=== PATIENT | female | born 1940 | race Caucasian/White ===

== ENCOUNTER 2016-12-07 14:10 | Outpatient (CLI) | payer MEDICARE, OTHER | END 2016-12-07 14:11 | disposition home or self-care (01) | DX: G47.33 Obstructive sleep apnea (adult) (pediatric) (principal) | CPT/HCPCS: 99214; G0463 ==

== ENCOUNTER 2016-12-09 11:12 | Outpatient (CLI) | payer MEDICARE, OTHER | END 2016-12-09 11:13 | disposition home or self-care (01) | DX: M16.12 Unilateral primary osteoarthritis, left hip (principal) ==

== ENCOUNTER 2016-12-30 15:35 | Outpatient (CLI) | payer MEDICARE, OTHER | END 2016-12-30 15:36 | disposition home or self-care (01) | DX: N05.9 Unspecified nephritic syndrome with unspecified morphologic changes (principal); D70.9 Neutropenia, unspecified; E83.30 Disorder of phosphorus metabolism, unspecified; N25.81 Secondary hyperparathyroidism of renal origin; D63.1 Anemia in chronic kidney disease; R80.9 Proteinuria, unspecified ==

== ENCOUNTER 2017-03-23 09:09 | Outpatient (CLI) | payer MEDICARE, OTHER ==
[2017-03-23 13:30] LABS: BASOPHILS # (AUTO) 0.1 10^3/uL (0.0-0.1); BASOPHILS % (AUTO) 1.7 %; EOSINOPHILS # (AUTO) 0.2 10^3/uL (0.0-0.7); EOSINOPHILS % (AUTO) 4.7 %; HCT - HEMATOCRIT 30.3 % (37.0-47.0); HGB - HEMOGLOBIN 10.4 g/dL (12.0-16.0); LYMPHOCYTES # (AUTO) 0.9 10^3/uL (1.5-3.5); LYMPHOCYTES % (AUTO) 21.6 %; MEAN CORPUSCULAR HEMOGLOBIN 30.4 pg (27.0-31.0); MEAN CORPUSCULAR HGB CONC 34.2 g/dL (32.0-36.0); MEAN CORPUSCULAR VOLUME 88.9 fL (81.0-99.0); MEAN PLATELET VOLUME 10.5 fL (7.9-10.8); MONOCYTES # (AUTO) 0.4 10^3/uL (0.0-1.0); MONOCYTES % (AUTO) 8.6 %; NEUTROPHILS # (AUTO) 2.8 10^3/uL (1.5-6.6); NEUTROPHILS % (AUTO) 63.4 %; NUCLEATED RED BLOOD CELLS AUTO 0.1 /100WBC; RED BLOOD COUNT 3.41 10^6/uL (4.20-5.40); RED CELL DISTRIBUTION WIDTH 13.1 % (12.0-15.0); UNCORRECTED WHITE BLOOD COUNT 4.4 x10^3/uL; WHITE BLOOD COUNT 4.4 x10^3/uL (4.8-10.8)
[2017-03-23 13:57] LABS: CALCIUM 9.3 mg/dL (8.5-10.3); CREATININE 2.9 mg/dL (0.4-1.0)
== END 2017-03-23 09:10 | disposition home or self-care (01) ==
LOC: LAB.WCP 09:09
PROVIDERS: ATTEND Family Medicine
DX: R06.09 Other forms of dyspnea (principal); D63.1 Anemia in chronic kidney disease
CPT/HCPCS: 36415; 80048; 82728; 83540; 83880; 84466; 85025

== ENCOUNTER 2017-04-20 14:31 | Outpatient (CLI) | payer MEDICARE, OTHER ==
[2017-04-20 19:01] LABS: HCT - HEMATOCRIT 32.6 % (37.0-47.0); HGB - HEMOGLOBIN 10.9 g/dL (12.0-16.0); MEAN CORPUSCULAR HEMOGLOBIN 29.7 pg (27.0-31.0); MEAN CORPUSCULAR HGB CONC 33.6 g/dL (32.0-36.0); MEAN CORPUSCULAR VOLUME 88.3 fL (81.0-99.0); MEAN PLATELET VOLUME 9.7 fL (7.9-10.8); RED BLOOD COUNT 3.69 10^6/uL (4.20-5.40); RED CELL DISTRIBUTION WIDTH 13.3 % (12.0-15.0); WHITE BLOOD COUNT 5.1 x10^3/uL (4.8-10.8)
[2017-04-20 20:10] LABS: CALCIUM 9.4 mg/dL (8.5-10.3); CREATININE 2.9 mg/dL (0.4-1.0); POTASSIUM 4.4 mmol/L (3.5-5.0)
== END 2017-04-20 14:32 ==
LOC: LAB.WCP 14:31
PROVIDERS: ATTEND Internal Medicine Nephrology
DX: N05.9 Unspecified nephritic syndrome with unspecified morphologic changes (principal); D50.0 Iron deficiency anemia secondary to blood loss (chronic)
CPT/HCPCS: 36415; 80048; 82728; 83540; 84466

== ENCOUNTER 2017-04-21 14:28 | Outpatient (CLI) | payer MEDICARE, OTHER | END 2017-04-21 14:29 | disposition home or self-care (01) | LOC: LAB.WCP 14:28 | PROVIDERS: ATTEND Family Medicine | DX: I25.10 Atherosclerotic heart disease of native coronary artery without angina pectoris (principal) | CPT/HCPCS: 36415; 84484 ==

== ENCOUNTER 2017-05-19 09:52 | Outpatient (CLI) | payer MEDICARE, OTHER | END 2017-05-19 09:53 | disposition short-term general hospital (02) | LOC: EMS 09:52 | PROVIDERS: ATTEND Surgery | DX: R55 Syncope and collapse (principal); R42 Dizziness and giddiness; R53.1 Weakness | CPT/HCPCS: A0425; A0427 ==

== ENCOUNTER 2017-06-10 15:46 | Outpatient (CLI) | payer MEDICARE, OTHER ==
[2017-06-10 16:07] LABS: BASOPHILS # (AUTO) 0.1 10^3/uL (0.0-0.1); EOSINOPHILS # (AUTO) 0.5 10^3/uL (0.0-0.7); EOSINOPHILS % (AUTO) 7.4 %; HCT - HEMATOCRIT 33.4 % (37.0-47.0); HGB - HEMOGLOBIN 11.2 g/dL (12.0-16.0); LYMPHOCYTES # (AUTO) 1.3 10^3/uL (1.5-3.5); LYMPHOCYTES % (AUTO) 19.4 %; MEAN CORPUSCULAR HEMOGLOBIN 29.4 pg (27.0-31.0); MEAN CORPUSCULAR HGB CONC 33.5 g/dL (32.0-36.0); MEAN CORPUSCULAR VOLUME 87.8 fL (81.0-99.0); MEAN PLATELET VOLUME 8.3 fL (7.9-10.8); MONOCYTES # (AUTO) 0.6 10^3/uL (0.0-1.0); MONOCYTES % (AUTO) 8.6 %; NEUTROPHILS # (AUTO) 4.1 10^3/uL (1.5-6.6); NEUTROPHILS % (AUTO) 62.6 %; RED BLOOD COUNT 3.81 10^6/uL (4.20-5.40); RED CELL DISTRIBUTION WIDTH 13.7 % (12.0-15.0); UNCORRECTED WHITE BLOOD COUNT 6.5 x10^3/uL; WHITE BLOOD COUNT 6.5 x10^3/uL (4.8-10.8)
[2017-06-10 16:19] LABS: CALCIUM 9.3 mg/dL (8.5-10.3); CREATININE 3.2 mg/dL (0.4-1.0); POTASSIUM 4.7 mmol/L (3.5-5.0)
== END 2017-06-10 15:47 | disposition home or self-care (01) ==
LOC: LAB 15:46
PROVIDERS: ATTEND Internal Medicine Nephrology
DX: N05.9 Unspecified nephritic syndrome with unspecified morphologic changes (principal); D70.9 Neutropenia, unspecified; E03.9 Hypothyroidism, unspecified; D63.1 Anemia in chronic kidney disease
CPT/HCPCS: 36415; 80048; 84443; 85025

== ENCOUNTER 2017-08-08 08:00 | Outpatient (CLI) | payer MEDICARE, OTHER ==
[2017-08-08 13:46] LABS: HCT - HEMATOCRIT 34.6 % (37.0-47.0); HGB - HEMOGLOBIN 11.8 g/dL (12.0-16.0); MEAN CORPUSCULAR HEMOGLOBIN 30.1 pg (27.0-31.0); MEAN CORPUSCULAR VOLUME 88.6 fL (81.0-99.0); MEAN PLATELET VOLUME 9.2 fL (7.9-10.8); RED BLOOD COUNT 3.91 10^6/uL (4.20-5.40); RED CELL DISTRIBUTION WIDTH 14.4 % (12.0-15.0)
[2017-08-08 14:00] LABS: CALCIUM 9.3 mg/dL (8.5-10.3); CREATININE 2.6 mg/dL (0.4-1.0); POTASSIUM 4.4 mmol/L (3.5-5.0); URIC ACID 6.9 mg/dL (2.6-7.2)
== END 2017-08-08 08:01 | disposition home or self-care (01) ==
LOC: LAB.WCP 08:00
PROVIDERS: ATTEND Family Medicine
DX: N05.9 Unspecified nephritic syndrome with unspecified morphologic changes (principal); M10.00 Idiopathic gout, unspecified site; D70.9 Neutropenia, unspecified; D63.1 Anemia in chronic kidney disease
CPT/HCPCS: 36415; 80048; 84550

== ENCOUNTER 2017-12-09 23:06 | Emergency (ER) | payer MEDICARE, OTHER ==
[2017-12-09 23:24] VITALS: BP 155/75
[2017-12-09] MEDS ORDERED: HYDROcod/ACETAM 5/325 MG TABLET PO STA (23:50)
--- NOTE | 2017-12-09 23:54 | ED Physician Documentation ---
PD HPI LOWER EXT INJURY - Stated complaint Stated Complaint: GLF/RT FOOT PX - Chief complaint Chief Complaint: Ext Problem - History obtained from History obtained from: Patient - History of Present Illness PD HPI LOW EXT INJURY LOCATION: Other (Slip and fall in the kitchen, she hit her foot on the door frame and this was about 3:00 PM today. She has moderate to severe right foot pain but no other injuries.) Review of Systems Constitutional: reports: Reviewed and negative Cardiac: reports: Reviewed and negative Respiratory: reports: Reviewed and negative PD PAST MEDICAL HISTORY - Past Medical History Cardiovascular: Hypertension, High cholesterol, Atrial fibrillation, Other Respiratory: Sleep apnea Neuro: Headache/migraine Endocrine/Autoimmune: None GI: GI bleed : Renal insuffiency, Other HEENT: None Psych: None Musculoskeletal: None Derm: None - Past Surgical History Past Surgical History: Yes General: Colonoscopy Ortho: Rotator cuff repair Cardiovascular: Coronary stent HEENT: Cataracts - Present Medications Home Medications: Ambulatory Orders Medication Instructions Recorded Confirmed Fluticasone Propionate [Flonase 1 spray NS BID PRN 06/04/15 09/16/16 Allergy Relief] Nitroglycerin [Nitrostat] 0.4 mg SL Q5MIN PRN 06/04/15 09/16/16 Cholecalciferol (Vitamin D3) 1,000 unit PO DAILY 04/06/16 09/16/16 [Vitamin D3] Aspirin [Aspirin EC] 81 mg PO QPM 08/06/16 09/16/16 Acetaminophen [Tylenol] 650 mg PO Q4HR PRN #0 tablet 08/07/16 09/16/16 Carvedilol [Coreg] 12.5 mg PO BID #60 tablet 08/07/16 09/16/16 Pantoprazole [Protonix] 40 mg PO QDAC #30 tablet 08/07/16 09/16/16 cloNIDine [Catapres] 0.1 mg PO QPM tablet 08/07/16 09/16/16 Atorvastatin [Lipitor] 10 mg PO TIDWM 09/16/16 09/16/16 HYDROcod/ACETAM 5/325 [Mingo 5/325] 1 - 2 ea PO Q6H PRN #15 tablet 12/09/17 Knee Scooter 1 unit TD ONCE #1 12/09/17 - Allergies Allergies/Adverse Reactions: Allergies Allergy/AdvReac Type Severity Reaction Status Date / Time amlodipine AdvReac Edema Verified 12/09/17 23:24 losartan AdvReac Dizziness Verified 12/09/17 23:24 oxycodone AdvReac Nausea Verified 12/09/17 23:24 - Social History Does the pt smoke?: No Smoking Status: Never smoker Does the pt drink ETOH?: No Does the pt have substance abuse?: No - Immunizations Immunizations are current?: Yes - POLST Patient has POLST: No PD ED PE NORMAL - Vitals Vital signs reviewed: Yes - General General: Alert and oriented X 3, No acute distress - Neck Neck: No bony TTP - Extremities Extremities: Other (There is bruising and swelling over the lateral distal right foot but with good range of motion and normal pedal pulses and sensation.) - Neuro Neuro: Alert and oriented X 3, Normal speech - Psych Psych: Normal mood, Normal affect Results - Vitals Vitals: Vital Signs - 24 hr 12/09/17 23:18 Temperature 36.8 C Heart Rate 66 Respiratory 16 Rate Blood Pressure 155/75 H O2 Saturation 99 Oxygen O2 Source Room air - Rads (name of study) 3 views of the right foot Radiology: EMP read contemporaneously (Oblique fractures of the fourth and fifth mid metatarsals.) Procedures - Splint (location) RLE Splint applied by: Tech Type of splint: Fiberglass, Short leg, Posterior Other: Patient tolerated well, No complications, Neurovascular intact, Crutches provided Departure - Departure Disposition: 01 Home, Self Care Clinical Impression: Fracture of fourth metatarsal bone of right foot Qualifiers: Encounter type: initial encounter Fracture type: closed Fracture alignment: nondisplaced Qualified Code(s): S92.344A - Nondisplaced fracture of fourth metatarsal bone, right foot, initial encounter for closed fracture Fracture of fifth metatarsal bone of right foot Qualifiers: Encounter type: initial encounter Fracture type: closed Fracture alignment: nondisplaced Qualified Code(s): S92.354A - Nondisplaced fracture of fifth metatarsal bone, right foot, initial encounter for closed fracture Condition: Good Record reviewed to determine appropriate education?: Yes Instructions: ED Crutch Walking, ED Fx Foot Follow-Up: [facility] [Provider Group] - Within 1 week Prescriptions: HYDROcod/ACETAM 5/325 [Mingo 5/325] 1 - 2 ea PO Q6H PRN #15 tablet PRN Reason: Pain Knee Scooter 1 unit TD ONCE #1 Comments: Do not drink or drive while taking narcotic pain medication. Note that many narcotic pain relievers also contain Tylenol/acetaminophen. Please ensure that your total dose of acetaminophen from all sources does not exceed 3 g (3000 mg) per day. You may get constipated while on this medication. Take a stool softener such as Colace twice a day while you are on it. Also add an [id number] laxative such as senna or MiraLAX on any day that you do not have a bowel movement. If you received a narcotic pain medication or sedative while in the emergency department, do not drive for the next 24 hours. Your blood pressure was elevated today on check into the emergency department. This does not mean that you have hypertension, it is a common phenomenon to come to the emergency department and have elevated blood pressure. I recommend that you see your primary care physician within the week to have it rechecked when you are feeling better.
--- NOTE | 2017-12-10 00:01 | XRAY Report ---
EXAM: RIGHT FOOT RADIOGRAPHY EXAM DATE: 12/09/2017 11:45 PM. CLINICAL HISTORY: Fall. Injury. Pain laterally. COMPARISON: None. TECHNIQUE: 3 views. FINDINGS: Bones: Mildly displaced oblique distal shaft fractures of fourth and fifth metatarsals. No other trau matic or destructive bone abnormalities. Joints: Normal. No subluxations. Soft Tissues: Associated soft tissue swelling. Dystrophic calcification anterior to the distal talus. IMPRESSION: Mildly displaced distal shaft fractures of fourth and fifth metatarsals. [facility] Referring Provider Line: [phone] SITE ID: [id number]
== END 2017-12-10 01:21 | disposition home or self-care (01) ==
LOC: ED 23:06
DX: S92.344A Nondisplaced fracture of fourth metatarsal bone, right foot, initial encounter for closed fracture (principal); S92.354A Nondisplaced fracture of fifth metatarsal bone, right foot, initial encounter for closed fracture; W01.0XXA Fall on same level from slipping, tripping and stumbling without subsequent striking against object, initial encounter; Y93.01 Activity, walking, marching and hiking; Y92.89 Other specified places as the place of occurrence of the external cause; I10 Essential (primary) hypertension; E78.00 Pure hypercholesterolemia, unspecified; Z95.5 Presence of coronary angioplasty implant and graft; Z79.82 Long term (current) use of aspirin
CPT/HCPCS: 29515; 73630; 99283; A9270

== ENCOUNTER 2017-12-26 08:00 | Outpatient (CLI) | payer MEDICARE, OTHER ==
[2017-12-26 19:29] LABS: HB2 TOTAL 11.9 g/dL; HEMOGLOBIN A1C 0.43 g/dL; HEMOGLOBIN A1C % 5.5 % (4.6-6.2)
[2017-12-26 19:29] LABS: CALCIUM 9.2 mg/dL (8.5-10.3); CREATININE 3.4 mg/dL (0.4-1.0)
[2017-12-26 19:36] LABS: CHOL/HDL RATIO 3.1 (<4.4); CHOLESTEROL 124 mg/dL; HDL CHOLESTEROL 40 mg/dL; LDL CHOLESTEROL,CALCULATED 57 mg/dL; LDL/HDL RATIO 1.4 (<4.4); VLDL CHOLESTEROL 27 mg/dL
[2017-12-26 19:42] LABS: HGB - HEMOGLOBIN 10.9 g/dL (12.0-16.0); MEAN CORPUSCULAR HEMOGLOBIN 29.7 pg (27.0-31.0); MEAN CORPUSCULAR HGB CONC 33.8 g/dL (32.0-36.0); MEAN CORPUSCULAR VOLUME 87.9 fL (81.0-99.0); MEAN PLATELET VOLUME 9.4 fL (7.9-10.8); RED BLOOD COUNT 3.67 10^6/uL (4.20-5.40); RED CELL DISTRIBUTION WIDTH 13.2 % (12.0-15.0); WHITE BLOOD COUNT 5.9 x10^3/uL (4.8-10.8)
== END 2017-12-26 08:01 | disposition home or self-care (01) ==
LOC: LAB.WCP 08:00
PROVIDERS: ATTEND Internal Medicine Nephrology
DX: N05.9 Unspecified nephritic syndrome with unspecified morphologic changes (principal); D70.9 Neutropenia, unspecified; D63.1 Anemia in chronic kidney disease; R73.01 Impaired fasting glucose; E78.00 Pure hypercholesterolemia, unspecified; I25.10 Atherosclerotic heart disease of native coronary artery without angina pectoris
CPT/HCPCS: 36415; 80048; 80061; 83036; 83721

== ENCOUNTER 2018-01-18 15:29 | Outpatient (CLI) | payer MEDICARE, OTHER | END 2018-01-18 15:30 | disposition home or self-care (01) | LOC: SC 15:29 | PROVIDERS: ATTEND Nurse Practitioner Family | DX: G47.33 Obstructive sleep apnea (adult) (pediatric) (principal) | CPT/HCPCS: 99214; G0463; 99212 ==

== ENCOUNTER 2018-03-01 08:00 | Outpatient (CLI) | payer MEDICARE, OTHER ==
[2018-03-01 19:51] LABS: CALCIUM 8.8 mg/dL (8.5-10.3); CREATININE 2.9 mg/dL (0.4-1.0)
== END 2018-03-01 08:01 | disposition home or self-care (01) ==
LOC: LAB.WCP 08:00
PROVIDERS: ATTEND Internal Medicine Nephrology
DX: N05.9 Unspecified nephritic syndrome with unspecified morphologic changes (principal)
CPT/HCPCS: 36415; 80048

== ENCOUNTER 2018-06-29 08:00 | Outpatient (CLI) | payer MEDICARE, OTHER ==
[2018-06-29 18:47] LABS: BASOPHILS # (AUTO) 0.1 10^3/uL (0.0-0.1); BASOPHILS % (AUTO) 1.4 %; EOSINOPHILS # (AUTO) 0.3 10^3/uL (0.0-0.7); EOSINOPHILS % (AUTO) 5.6 %; HGB - HEMOGLOBIN 10.2 g/dL (12.0-16.0); LYMPHOCYTES % (AUTO) 18.2 %; MEAN CORPUSCULAR HEMOGLOBIN 30.1 pg (27.0-31.0); MEAN CORPUSCULAR HGB CONC 33.9 g/dL (32.0-36.0); MEAN CORPUSCULAR VOLUME 88.8 fL (81.0-99.0); MEAN PLATELET VOLUME 9.1 fL (7.9-10.8); MONOCYTES # (AUTO) 0.7 10^3/uL (0.0-1.0); MONOCYTES % (AUTO) 11.9 %; NEUTROPHILS # (AUTO) 3.5 10^3/uL (1.5-6.6); NEUTROPHILS % (AUTO) 62.9 %; PLT - PLATELET COUNT 249 10^3/uL (130-450); RED BLOOD COUNT 3.37 10^6/uL (4.20-5.40); RED CELL DISTRIBUTION WIDTH 14.3 % (12.0-15.0); WHITE BLOOD COUNT 5.5 x10^3/uL (4.8-10.8)
[2018-06-29 19:17] LABS: CREATININE,URINE 180.9 mg/dL; PROTEIN/CREATININE RATIO,URINE 0.2 (<=0.2)
[2018-06-29 19:22] LABS: CALCIUM 9.2 mg/dL (8.5-10.3); CREATININE 3.2 mg/dL (0.4-1.0)
== END 2018-06-29 08:01 | disposition home or self-care (01) ==
LOC: LAB.WCP 08:00
PROVIDERS: ATTEND Internal Medicine Nephrology
DX: N05.9 Unspecified nephritic syndrome with unspecified morphologic changes (principal); R80.9 Proteinuria, unspecified; I50.32 Chronic diastolic (congestive) heart failure; D70.9 Neutropenia, unspecified; D63.1 Anemia in chronic kidney disease; D50.0 Iron deficiency anemia secondary to blood loss (chronic); E83.30 Disorder of phosphorus metabolism, unspecified; N25.81 Secondary hyperparathyroidism of renal origin
CPT/HCPCS: 36415; 80048; 82570; 83540; 83970; 84100; 84156; 84466; 85025

== ENCOUNTER 2018-11-02 08:00 | Outpatient (CLI) | payer MEDICARE, OTHER ==
[2018-11-02 19:44] LABS: CALCIUM 9.2 mg/dL (8.5-10.3); CREATININE 3.5 mg/dL (0.4-1.0)
[2018-11-02 19:47] LABS: MEAN CORPUSCULAR HEMOGLOBIN 29.7 pg (27.0-31.0); MEAN CORPUSCULAR HGB CONC 32.5 g/dL (32.0-36.0); MEAN CORPUSCULAR VOLUME 91.4 fL (81.0-99.0); MEAN PLATELET VOLUME 9.1 fL (7.9-10.8); RED BLOOD COUNT 4.02 10^6/uL (4.20-5.40); RED CELL DISTRIBUTION WIDTH 14.8 % (12.0-15.0); WHITE BLOOD COUNT 5.6 x10^3/uL (4.8-10.8)
[2018-11-02 19:51] LABS: CREATININE,URINE 174.9 mg/dL; PROTEIN/CREATININE RATIO,URINE 0.2 (<=0.2)
== END 2018-11-02 23:59 | disposition home or self-care (01) ==
LOC: LAB.WCP 08:00
PROVIDERS: ATTEND Internal Medicine Nephrology
DX: N05.9 Unspecified nephritic syndrome with unspecified morphologic changes (principal); D63.1 Anemia in chronic kidney disease; D70.9 Neutropenia, unspecified; D50.0 Iron deficiency anemia secondary to blood loss (chronic); R80.9 Proteinuria, unspecified
CPT/HCPCS: 36415; 80048; 82570; 82728; 83540; 84156; 84466; 85027

== ENCOUNTER 2018-11-24 08:00 | Outpatient (CLI) | payer MEDICARE, OTHER ==
[2018-11-24 13:46] LABS: BASOPHILS % (AUTO) 0.8 %; EOSINOPHILS # (AUTO) 0.3 10^3/uL (0.0-0.7); EOSINOPHILS % (AUTO) 5.2 %; HGB - HEMOGLOBIN 11.3 g/dL (12.0-16.0); LYMPHOCYTES % (AUTO) 19.6 %; MEAN CORPUSCULAR HEMOGLOBIN 30.6 pg (27.0-31.0); MEAN CORPUSCULAR HGB CONC 34.7 g/dL (32.0-36.0); MEAN CORPUSCULAR VOLUME 88.1 fL (81.0-99.0); MEAN PLATELET VOLUME 9.1 fL (7.9-10.8); MONOCYTES # (AUTO) 0.5 10^3/uL (0.0-1.0); MONOCYTES % (AUTO) 9.7 %; NEUTROPHILS # (AUTO) 3.3 10^3/uL (1.5-6.6); NEUTROPHILS % (AUTO) 64.7 %; PLT - PLATELET COUNT 228 10^3/uL (130-450); RED BLOOD COUNT 3.69 10^6/uL (4.20-5.40); RED CELL DISTRIBUTION WIDTH 13.9 % (12.0-15.0); WHITE BLOOD COUNT 5.1 x10^3/uL (4.8-10.8)
[2018-11-24 14:08] LABS: CHOLESTEROL 124 mg/dL; HDL CHOLESTEROL 41 mg/dL; LDL CHOLESTEROL,CALCULATED 56 mg/dL; LDL/HDL RATIO 1.4 (<4.4); VLDL CHOLESTEROL 27 mg/dL
[2018-11-24 14:16] LABS: ALBUMIN 3.8 g/dL (3.2-5.5); ALBUMIN/GLOBULIN RATIO 1.3 (1.0-2.2); ALKALINE PHOSPHATASE 83 IU/L (42-121); ALT ALANINE AMINOTRANSFERASE < 10 IU/L (10-60); AST ASPARTATE AMINOTRANSFERASE 18 IU/L (10-42); BILIRUBIN,TOTAL 0.7 mg/dL (0.2-1.0); BUN - BLOOD UREA NITROGEN 56 mg/dL (6-20); CARBON DIOXIDE - CO2 20 mmol/L (21-32); CHLORIDE 107 mmol/L (101-111); CREATININE 2.6 mg/dL (0.4-1.0); GFR - MDRD 18 (>89); GLUCOSE 92 mg/dL (70-100); SODIUM 132 mmol/L (135-145); TOTAL PROTEIN 6.7 g/dL (6.7-8.2)
[2018-11-24 17:45] LABS: HB2 TOTAL 11.4 g/dL; HEMOGLOBIN A1C 0.37 g/dL; HEMOGLOBIN A1C % 5.1 % (4.6-6.2)
== END 2018-11-24 23:59 | disposition home or self-care (01) ==
LOC: LAB.WCP 08:00
PROVIDERS: ATTEND Internal Medicine Cardiovascular Disease
DX: R73.01 Impaired fasting glucose (principal); I25.10 Atherosclerotic heart disease of native coronary artery without angina pectoris; E78.00 Pure hypercholesterolemia, unspecified; R68.89 Other general symptoms and signs
CPT/HCPCS: 36415; 80053; 80061; 83036; 83721; 84443; 85025

== ENCOUNTER 2018-12-01 08:00 | Outpatient (CLI) | payer MEDICARE, OTHER ==
[2018-12-01 19:12] LABS: BASOPHILS # (AUTO) 0.1 10^3/uL (0.0-0.1); BASOPHILS % (AUTO) 1.7 %; EOSINOPHILS # (AUTO) 0.2 10^3/uL (0.0-0.7); EOSINOPHILS % (AUTO) 4.5 %; HGB - HEMOGLOBIN 11.5 g/dL (12.0-16.0); LYMPHOCYTES # (AUTO) 1.1 10^3/uL (1.5-3.5); LYMPHOCYTES % (AUTO) 22.3 %; MEAN CORPUSCULAR HEMOGLOBIN 30.1 pg (27.0-31.0); MEAN CORPUSCULAR HGB CONC 32.8 g/dL (32.0-36.0); MEAN CORPUSCULAR VOLUME 91.8 fL (81.0-99.0); MEAN PLATELET VOLUME 9.6 fL (7.9-10.8); MONOCYTES # (AUTO) 0.6 10^3/uL (0.0-1.0); MONOCYTES % (AUTO) 11.9 %; NEUTROPHILS % (AUTO) 59.6 %; PLT - PLATELET COUNT 230 10^3/uL (130-450); RED BLOOD COUNT 3.81 10^6/uL (4.20-5.40); RED CELL DISTRIBUTION WIDTH 14.1 % (12.0-15.0)
[2018-12-01 19:26] LABS: CALCIUM 9.3 mg/dL (8.5-10.3)
== END 2018-12-01 23:59 | disposition home or self-care (01) ==
LOC: LAB.WCP 08:00
PROVIDERS: ATTEND Internal Medicine Nephrology
DX: N05.9 Unspecified nephritic syndrome with unspecified morphologic changes (principal); D70.9 Neutropenia, unspecified; D63.1 Anemia in chronic kidney disease
CPT/HCPCS: 36415; 80048; 85025

== ENCOUNTER 2019-01-03 10:35 | Outpatient (CLI) | payer MEDICARE, OTHER ==
[2019-01-03 12:25] LABS: BASOPHILS # (AUTO) 0.1 10^3/uL (0.0-0.1); BASOPHILS % (AUTO) 1.3 %; EOSINOPHILS # (AUTO) 0.2 10^3/uL (0.0-0.7); HGB - HEMOGLOBIN 11.7 g/dL (12.0-16.0); LYMPHOCYTES # (AUTO) 1.1 10^3/uL (1.5-3.5); LYMPHOCYTES % (AUTO) 18.4 %; MEAN CORPUSCULAR HEMOGLOBIN 30.6 pg (27.0-31.0); MEAN CORPUSCULAR VOLUME 90.1 fL (81.0-99.0); MEAN PLATELET VOLUME 8.9 fL (7.9-10.8); MONOCYTES # (AUTO) 0.5 10^3/uL (0.0-1.0); MONOCYTES % (AUTO) 7.8 %; NEUTROPHILS # (AUTO) 4.1 10^3/uL (1.5-6.6); NEUTROPHILS % (AUTO) 68.5 %; PLT - PLATELET COUNT 240 10^3/uL (130-450); RED BLOOD COUNT 3.82 10^6/uL (4.20-5.40); RED CELL DISTRIBUTION WIDTH 13.7 % (12.0-15.0); WHITE BLOOD COUNT 5.9 x10^3/uL (4.8-10.8)
[2019-01-03 13:46] LABS: CALCIUM 9.2 mg/dL (8.5-10.3); CREATININE 2.8 mg/dL (0.4-1.0)
== END 2019-01-03 23:59 | disposition home or self-care (01) ==
LOC: LAB.WCP 10:35
PROVIDERS: ATTEND Internal Medicine Nephrology
DX: N05.9 Unspecified nephritic syndrome with unspecified morphologic changes (principal); D70.9 Neutropenia, unspecified; D63.1 Anemia in chronic kidney disease
CPT/HCPCS: 36415; 80048; 85025

== ENCOUNTER 2019-01-18 13:41 | Outpatient (CLI) | payer MEDICARE, OTHER | END 2019-01-18 13:42 | disposition home or self-care (01) | LOC: SC 13:41 | PROVIDERS: ATTEND Nurse Practitioner Family | DX: G47.33 Obstructive sleep apnea (adult) (pediatric) (principal) | CPT/HCPCS: 99214; G0463; 99212 ==

== ENCOUNTER 2019-01-31 14:23 | Outpatient (CLI) | payer MEDICARE, OTHER ==
[2019-01-31 19:19] LABS: CREATININE 2.9 mg/dL (0.4-1.0)
[2019-01-31 19:50] LABS: BASOPHILS # (AUTO) 0.1 10^3/uL (0.0-0.1); BASOPHILS % (AUTO) 1.9 %; EOSINOPHILS # (AUTO) 0.2 10^3/uL (0.0-0.7); EOSINOPHILS % (AUTO) 4.2 %; HGB - HEMOGLOBIN 11.4 g/dL (12.0-16.0); MEAN CORPUSCULAR HEMOGLOBIN 30.4 pg (27.0-31.0); MEAN CORPUSCULAR HGB CONC 33.4 g/dL (32.0-36.0); MEAN PLATELET VOLUME 9.4 fL (7.9-10.8); MONOCYTES # (AUTO) 0.5 10^3/uL (0.0-1.0); MONOCYTES % (AUTO) 9.6 %; NEUTROPHILS % (AUTO) 63.3 %; PLT - PLATELET COUNT 226 10^3/uL (130-450); RED BLOOD COUNT 3.74 10^6/uL (4.20-5.40); RED CELL DISTRIBUTION WIDTH 13.4 % (12.0-15.0); WHITE BLOOD COUNT 4.8 x10^3/uL (4.8-10.8)
== END 2019-01-31 23:59 | disposition home or self-care (01) ==
LOC: LAB.WCP 14:23
PROVIDERS: ATTEND Internal Medicine Nephrology
DX: N05.9 Unspecified nephritic syndrome with unspecified morphologic changes (principal); D70.9 Neutropenia, unspecified; D63.1 Anemia in chronic kidney disease
CPT/HCPCS: 36415; 80048; 85025

== ENCOUNTER 2019-02-16 21:40 | Emergency (ER) | payer MEDICARE, OTHER ==
[2019-02-16 22:15] LABS: BASOPHILS # (AUTO) 0.1 10^3/uL (0.0-0.1); BASOPHILS % (AUTO) 1.5 %; EOSINOPHILS # (AUTO) 0.3 10^3/uL (0.0-0.7); EOSINOPHILS % (AUTO) 4.9 %; LYMPHOCYTES # (AUTO) 1.4 10^3/uL (1.5-3.5); LYMPHOCYTES % (AUTO) 19.3 %; MEAN CORPUSCULAR HEMOGLOBIN 30.3 pg (27.0-31.0); MEAN CORPUSCULAR HGB CONC 33.6 g/dL (32.0-36.0); MEAN CORPUSCULAR VOLUME 90.2 fL (81.0-99.0); MEAN PLATELET VOLUME 9.1 fL (7.9-10.8); MONOCYTES # (AUTO) 0.6 10^3/uL (0.0-1.0); MONOCYTES % (AUTO) 8.6 %; NEUTROPHILS # (AUTO) 4.6 10^3/uL (1.5-6.6); NEUTROPHILS % (AUTO) 65.7 %; PLT - PLATELET COUNT 261 10^3/uL (130-450); RED BLOOD COUNT 3.95 10^6/uL (4.20-5.40); RED CELL DISTRIBUTION WIDTH 13.9 % (12.0-15.0); WHITE BLOOD COUNT 7.1 x10^3/uL (4.8-10.8)
[2019-02-16 22:26] LABS: ALBUMIN/GLOBULIN RATIO 1.2 (1.0-2.2); BILIRUBIN,TOTAL 0.7 mg/dL (0.2-1.0); CALCIUM 9.1 mg/dL (8.5-10.3); CREATININE 2.4 mg/dL (0.4-1.0); TOTAL PROTEIN 7.4 g/dL (6.7-8.2)
--- NOTE | 2019-02-16 22:38 | ED Physician Documentation ---
PD HPI CHEST PAIN - Stated complaint Stated Complaint: RAPID HR/HBP - Chief complaint Chief Complaint: Cardiac - History obtained from History obtained from: Patient, Family - History of Present Illness Timing - onset: Enter time (1800), Today Timing - onset during: Rest Timing - duration: Hours Timing - details: Gradual onset, Still present Quality: Pressure, Sharp Location: Left chest Radiation: Jaw, Neck Improved by: Rest Associated symptoms: No: Shortness of air, Diaphoresis, Nausea, Vomiting, Feeling faint / dizzy, General Weakness, Palpitations, Cough Similar symptoms before: Diagnosis (angina) Recently seen: Clinic - Additional information Additional information: 78 y/o female with a history of intermittent atrial fibrillation arrives in afib with a rate of 90-120 and symptomatic with chest pain radiating to the neck and jaw. She has hypertension and she has taken some hydralazine prior to arrival. She reports several recent incidents with anxiety provoking interactions and she is concerned that this is the reason for her elevated blood pressure. 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 Review of Systems Constitutional: denies: Fever Eyes: denies: Decreased vision Ears: denies: Ear pain Nose: denies: Rhinorrhea / runny nose, Congestion Throat: denies: Sore throat Cardiac: reports: Chest pain / pressure. denies: Palpitations, Pedal edema, Calf pain Respiratory: denies: Dyspnea, Cough GI: denies: Abdominal Pain, Nausea, Vomiting : denies: Dysuria, Frequency Skin: denies: Rash Musculoskeletal: reports: Neck pain. denies: Back pain, Extremity pain Neurologic: denies: Generalized weakness, Focal weakness, Numbness PD PAST MEDICAL HISTORY - Past Medical History Past Medical History: Yes Cardiovascular: Hypertension, High cholesterol, Atrial fibrillation, Other Respiratory: Sleep apnea Endocrine/Autoimmune: None GI: GI bleed : Renal insuffiency, Other HEENT: None Psych: None Musculoskeletal: None Derm: None - Past Surgical History Past Surgical History: Yes General: Colonoscopy Ortho: Rotator cuff repair Cardiovascular: Coronary stent HEENT: Cataracts - Present Medications Home Medications: Ambulatory Orders Medication Instructions Recorded Confirmed RX: Fluticasone Propionate 1 spray NS BID PRN 06/04/15 09/25/18 [Flonase Allergy Relief] RX: Nitroglycerin [Nitrostat] 0.4 mg SL Q5MIN PRN 06/04/15 09/25/18 RX: Cholecalciferol (Vitamin D3) 2,000 unit PO DAILY 04/06/16 09/25/18 [Vitamin D3] RX: Aspirin [Aspirin EC] 81 mg PO QPM 08/06/16 09/25/18 RX: Acetaminophen [Tylenol] 650 mg PO Q4HR PRN #0 tablet 08/07/16 09/25/18 Atorvastatin [Lipitor] 20 mg PO TIDWM 09/16/16 09/16/16 RX: Carvedilol [Coreg] 25 mg PO BID 07/28/18 09/25/18 dilTIAZem HCl [Diltiazem 24Hr ER] 120 mg ORAL DAILY 07/28/18 09/25/18 hydrALAZINE [Apresoline] 25 mg PO PRN PRN 07/28/18 09/25/18 Cetirizine [ZyrTEC] 10 mg PO DAILY 09/25/18 09/25/18 RX: Ferrous Sulfate 325 mg PO DAILY 09/25/18 09/25/18 RX: cloNIDine [Catapres] 0.2 mg PO QPM 02/16/19 Ubidecarenone [Co Q-10] 100 mg PO DAILY 02/16/19 02/16/19 - Allergies Allergies/Adverse Reactions: Allergies Allergy/AdvReac Type Severity Reaction Status Date / Time rivaroxaban [From Xarelto] Allergy Unknown Verified 02/16/19 22:03 amlodipine AdvReac Edema Verified 12/09/17 23:24 losartan AdvReac Dizziness Verified 12/09/17 23:24 oxycodone AdvReac Nausea Verified 12/09/17 23:24 - Social History Does the pt smoke?: No Smoking Status: Never smoker Does the pt drink ETOH?: Yes Does the pt have substance abuse?: No - Immunizations Immunizations are current?: Yes - POLST Patient has POLST: No PD ED PE NORMAL - Vitals Vital signs reviewed: Yes (hypertensive ) - General General: Alert and oriented X 3, No acute distress, Well developed/nourished - HEENT HEENT: Atraumatic, PERRL, EOMI, Ears normal - Neck Neck: Supple, no meningeal sign, No bony TTP - Cardiac Cardiac: No murmur, Other (irregularly irregular ) - Respiratory Respiratory: No respiratory distress, Clear bilaterally - Abdomen Abdomen: Soft, Non tender - Back Back: No CVA TTP, No spinal TTP - Derm Derm: Normal color, Warm and dry, No rash - Extremities Extremities: No deformity, No edema - Neuro Neuro: Alert and oriented X 3, operations technician 2-12 intact, No motor deficit, No sensory deficit, Normal speech Eye Opening: Spontaneous Motor: Obeys Commands Verbal: Oriented GCS Score: 15 - Psych Psych: Normal mood, Normal affect Results - Vitals Vitals: Vital Signs - 24 hr 02/16/19 02/16/19 02/16/19 21:48 21:57 22:52 Temperature 36.1 C L Heart Rate 93 134 H 108 H Respiratory 16 23 18 Rate Blood Pressure 155/90 H 159/68 H O2 Saturation 99 100 98 02/16/19 02/16/19 02/16/19 23:06 23:11 23:15 Temperature Heart Rate 83 72 68 Respiratory 20 15 Rate Blood Pressure 175/81 H 113/56 L 128/60 O2 Saturation 98 97 02/16/19 02/16/19 02/16/19 23:20 23:35 23:45 Temperature Heart Rate 66 71 63 Respiratory 16 Rate Blood Pressure 127/61 153/75 H 114/58 L O2 Saturation 96 02/17/19 01:00 Temperature Heart Rate 70 Respiratory 17 Rate Blood Pressure 175/81 H O2 Saturation 99 Oxygen O2 Source Room air - EKG (time done) 0114 Rate: Rate (enter#) (72) Rhythm: NSR, LAE Compare to prior EKG: Changed from prior EKG (SPT earlier this visit her rate has decreased and her rhythm has changed to sinus. ) Computer interpretation: Agree with computer 2148 Rate: Rate (enter#) (94) Rhythm: Atrial fibrillation Compare to prior EKG: Changed from prior EKG (SPT 08-05-2016 rate has increased and rhythm has changed to afib. ) Computer interpretation: Agree with computer - Labs Labs: Laboratory Tests 02/16/19 02/16/19 02/16/19 21:55 21:55 21:55 WBC 7.1 RBC 3.95 L Hgb 12.0 Hct 35.6 L MCV 90.2 MCH 30.3 MCHC 33.6 RDW 13.9 Plt Count 261 MPV 9.1 Neut # (Auto) 4.6 Lymph # (Auto) 1.4 L Cowley # (Auto) 0.6 Eos # (Auto) 0.3 Baso # (Auto) 0.1 Absolute Nucleated RBC 0.00 Nucleated RBC % 0.0 Sodium 137 Potassium 4.6 Chloride 107 Carbon Dioxide 21 Anion Gap 9.0 BUN 51 H Creatinine 2.4 H Estimated GFR (MDRD) 20 L Glucose 162 H Calcium 9.1 Total Bilirubin 0.7 AST 21 ALT 11 Alkaline Phosphatase 116 Troponin I < 0.04 Total Protein 7.4 Albumin 4.0 Globulin 3.4 Albumin/Globulin Ratio 1.2 Lipase 73 H Urine Color Urine Clarity Urine pH Ur Specific Eclectic Urine Protein Urine Glucose (UA) Urine Ketones Urine Occult Blood Urine Nitrite Urine Bilirubin Urine Urobilinogen Ur Leukocyte Esterase Ur Microscopic Review Urine Culture Comments 02/17/19 01:00 WBC RBC Hgb Hct MCV MCH MCHC RDW Plt Count MPV Neut # (Auto) Lymph # (Auto) Cowley # (Auto) Eos # (Auto) Baso # (Auto) Absolute Nucleated RBC Nucleated RBC % Sodium Potassium Chloride Carbon Dioxide Anion Gap BUN Creatinine Estimated GFR (MDRD) Glucose Calcium Total Bilirubin AST ALT Alkaline Phosphatase Troponin I Total Protein Albumin Globulin Albumin/Globulin Ratio Lipase Urine Color YELLOW Urine Clarity CLEAR Urine pH 6.0 Ur Specific Eclectic <=1.005 Urine Protein NEGATIVE Urine Glucose (UA) NEGATIVE Urine Ketones NEGATIVE Urine Occult Blood NEGATIVE Urine Nitrite NEGATIVE Urine Bilirubin NEGATIVE Urine Urobilinogen 0.2 (NORMAL) Ur Leukocyte Esterase NEGATIVE Ur Microscopic Review NOT INDICATED Urine Culture Comments NOT INDICATED PD MEDICAL DECISION MAKING - ED course Complexity details: reviewed old records, reviewed results, re-evaluated patient, considered differential, d/w patient, d/w family ED course: 78-year-old female with history of hypertension and intermittent atrial fibrillation has developed chest pain with elevated blood pressure and atrial fibrillation. She did have a rapid heart rate and she took some hydralazine and she is arrived to the emergency department she continues to have atrial fibrillation her rate is between 110 and 95 and her chest pain symptoms are resolved. She is administered diltiazem 20 mg intravenously with reduction in her heart rate into the 70s and eventually conversion. She is feeling well at the time of discharge. Departure - Departure Disposition: 01 Home, Self Care Clinical Impression: Atrial fibrillation with rapid ventricular response Condition: Stable Instructions: ED Afib Follow-Up: Hope Jean DO [Primary Care Provider] - Discharge Date/Time: 02/17/19 01:26
[2019-02-16] MEDS ORDERED: diltiaZEM INJ 5 MG/ML VIAL IVP STA (23:00)
[2019-02-17 01:02] VITALS: BP 175/81
[2019-02-17 01:09] LABS: BILIRUBIN,URINE NEGATIVE (NEGATIVE); GLUCOSE, URINE (UA) NEGATIVE (NEGATIVE); KETONES,URINE (UA) NEGATIVE (NEGATIVE); LEUKOCYTE ESTERASE, URINE NEGATIVE (NEGATIVE); NITRITE,URINE NEGATIVE (NEGATIVE); OCCULT BLOOD,URINE NEGATIVE (NEGATIVE); PROTEIN,URINE NEGATIVE (NEGATIVE); UROBILINOGEN,URINE 0.2 (NORMAL) E.U./dL (NORMAL)
[2019-02-17 01:11] LABS: CLARITY,URINE CLEAR (CLEAR)
--- NOTE | 2019-02-17 01:20 | XRAY Report ---
Reason: chest pain Procedure Date: 02/16/2019 Accession Number: [id number] / [id number] Procedure: XR - Chest 1 View X-Ray CPT Code: 56432 FULL RESULT: EXAM: CHEST RADIOGRAPHY EXAM DATE: 02/16/2019 10:16 PM. CLINICAL HISTORY: Chest pain. COMPARISON: CHEST 2 VIEW PA/LAT 06/04/2015 6:09 AM. TECHNIQUE: 1 view. FINDINGS: Lungs/Pleura: Mild bibasilar atelectasis. Possible trace left effusion. No pneumothorax. Mediastinum: Within exam limitations, heart size is upper normal. Aortic atherosclerosis. Other: Metal anchor in the right humeral head. IMPRESSION: 1. Borderline heart size with mild bibasilar atelectasis and possible trace left pleural effusion. [facility]
== END 2019-02-17 01:26 | disposition home or self-care (01) ==
LOC: ED 21:40
DX: I48.91 Unspecified atrial fibrillation (principal)
CPT/HCPCS: 36415; 71045; 80053; 81001; 81003; 83690; 84484; 85025; 87086; 93005; 96374; 99284; 99285

== ENCOUNTER 2019-06-01 | Outpatient (CLI) | payer MEDICARE, OTHER | END 2019-06-01 23:59 | disposition home or self-care (01) ==

== ENCOUNTER 2019-06-12 14:46 | Outpatient (CLI) | payer MEDICARE, OTHER ==
--- NOTE | 2019-06-13 08:37 | DEXA Report ---
Reason: POSTMENOPAUSAL STATUS Procedure Date: 06/12/2019 Accession Number: [id number] / [id number] Procedure: DEX - Dexa Spine and/or Hip CPT Code: FULL RESULT: EXAM: Dexa Spine and/or Hip DATE: 06/12/2019 3:35 PM CLINICAL HISTORY: POSTMENOPAUSAL STATUS TECHNIQUE: Dual energy x-ray absorptiometry (DXA) was performed on a [employer] System. Regions measured are the AP Spine, femoral neck, and if needed forearm. COMPARISON: None. In accordance with the International Society for Clinical Densitometry (ISCD) guidelines, data from previous exams may be reanalyzed using current recommendations and techniques. This is done to allow a more accurate basis for comparison with the current study. FINDINGS: The data for the lumbar spine is as follows: BMD (g/cm/cm) T-SCORE Z-SCORE REGION L1 1.121 -0.1 1.8 L2 1.109 -0.8 1.1 L3 1.226 0.2 2.1 L4 1.361 1.3 3.2 TOTAL 1.207 0.2 2.1 NOTE: All evaluable vertebrae are used for classification The data for the hip is as follows: BMD (g/cm/cm) T-SCORE Z-SCORE REGION Neck 0.805 -1.7 0.4 TOTAL 0.863 -1.1 0.8 NOTE: The femoral neck or total proximal femur, whichever is lowest, is used for classification. IMPRESSION: THE WHO CLASSIFICATION BASED ON THE INTERNATIONAL REFERENCE STANDARD IS OSTEOPENIA. THE FRACTURE RISK IS INCREASED. RECOMMENDATION: Patients with diagnosis of osteoporosis or osteopenia should have regular bone mineral density assessment. For those eligible for Medicare, routine testing is allowed once every 2 years. Testing frequency can be increased for patients who have rapidly progressing disease or for those who are receiving medical therapy to restore bone mass. COMMENT: World Health Organization (WHO) definitions for osteoporosis and osteopenia: NORMAL BMD: T-score at -1.0 or higher, fracture risk is low OSTEOPENIA BMD: T-score between -1.0 and -2.5, fracture risk is increased. OSTEOPOROSIS BMD: T-score at -2.5 or lower, fracture risk is high. National Osteoporosis Foundation recommends: 1. Obtain adequate dietary calcium (at least 1200 mg per day) and vitamin D (400-800 international units per day). 2. Participate, as appropriate, in regular weightbearing and muscle-strengthening exercise. 3. Avoid tobacco use and reduce alcohol and caffeine intake. 4. For more detailed information see the website at www.NOF.org.
== END 2019-06-12 14:47 | disposition home or self-care (01) ==
LOC: DI 14:46
PROVIDERS: ATTEND Family Medicine
DX: M85.88 Other specified disorders of bone density and structure, other site (principal)
CPT/HCPCS: 77080

== ENCOUNTER 2019-06-20 16:08 | Outpatient (CLI) | payer MEDICARE, OTHER ==
--- NOTE | 2019-06-21 15:12 | Ultrasound Report ---
Reason: PELVIC MASS Procedure Date: 06/20/2019 Accession Number: [id number] / [id number] Procedure: US - Pelvic Complete CPT Code: FULL RESULT: EXAM: PELVIC ULTRASOUND EXAM DATE: 06/20/2019 04:54 PM. CLINICAL HISTORY: Pelvic mass, history of fibroids. COMPARISON: 06/26/2015. TECHNIQUE: Realtime transabdominal pelvic scan performed to identify the uterus and adnexa and as an overview of other pelvic structures, with static image documentation. FINDINGS: Uterus: 13.1 x 6.1 x 9.7 cm, volume 108 cc. Anteverted position. Normal overall size and echotexture. Masses: A large anterior likely transmural fibroid measures 7.5 x 8.4 x 6.9 cm. Endometrium: Suboptimally visualized but may represent a structure measuring 4 mm. Examination also limited by no transvaginal imaging. Cervix: Unremarkable. Right Ovary: 2.1 x 1.8 x 2.2 cm, volume 4.2 cc. Normal echotexture and blood flow. A right ovarian simple cyst measures 1.3 cm. Left Ovary: 3.7 x 2.9 x 3.5 cm, volume 19.9 cc. Normal echotexture and blood flow. A left ovarian simple cyst measures 2.6 cm. Free Fluid: None. Other: None. IMPRESSION: 1. Large likely transmural fibroid measuring up to 8.4 cm. On prior exam it measured 8.5 cm, not significantly changed. 2. Endometrium largely obscured as before. [facility]
--- NOTE | 2019-06-22 09:31 | Ultrasound Report ---
Reason: KIDNEY DISEASE, CHRONIC, STAGE IV, PELIVC MASS Procedure Date: 06/20/2019 Accession Number: [id number] / [id number] Procedure: US - Arterial Visceral Complete CPT Code: FULL RESULT: EXAM: RENAL ARTERY DOPPLER ULTRASOUND EXAM DATE: 06/20/2019 05:20 PM. CLINICAL HISTORY: Kidney disease, chronic, stage IV, pelvic mass. COMPARISON: RENAL 09/23/2014 2:43 PM. TECHNIQUE: Real-time sonographic vascular imaging was performed by the automobile mechanic supervisor through the renal arterial system with a linear transducer utilizing color-flow, Doppler flow, and spectral analysis. Multiple inbound call center representative static images were saved for review. FINDINGS: Right renal atrophy with thinned echogenic cortex measures 6.7 x 4.3 x 4.4 cm. No stone or hydronephrosis. Left kidney size within normal limits and cortical echotexture measuring 10.4 x 4.4 x 3.5. Right Kidney: 6.7 x 4.3 x 4.4 cm. Echotexture: Limited visualization. Right Segmental Artery: Upper pole: PSV 49 cm/sec, RI 0.6. Mid pole: PSV 70 cm/sec, RI 0.9. Lower pole: PSV 104 cm/sec, RI 0.9. Right Renal Artery: Origin: PSV 112 cm/sec, RA/AO 1.1. Proximal: PSV 60 cm/sec, RA/AO 0.6. Mid: PSV 73 cm/sec, RA/AO 0.7. Distal: PSV 55 cm/sec, RA/AO 0.5. Aorta PSV: 104 cm/sec. RRV Patent: Yes. Left Kidney: 10.4 x 4.4 x 3.5 cm. Echotexture: Limited visualization. Left Segmental Artery: Upper pole: PSV 51 cm/sec, RI 0.7. Mid pole: PSV 38 cm/sec, RI 0.6. Lower pole: PSV 63 cm/sec, RI 0.6. Left Renal Artery: Origin: PSV 65 cm/sec, RA/AO 0.6. Proximal: PSV 98 cm/sec, RA/AO 0.9. Mid: PSV 175 cm/sec, RA/AO 1.7. Distal: PSV 58 cm/sec, RA/AO 0.6. LRV Patent: Yes. IMPRESSION: 1. Right renal atrophy as described with elevated cortical resistive indices consistent with chronic kidney disease. 2. Borderline elevated systolic flow velocity in the left mid renal artery. 3. Patent bilateral renal veins. CRITERIA FOR CLASSIFICATION OF RENAL ARTERY (RA) DISEASE BY DUPLEX SCANNING: RA Diameter Reduction/ RA PSV/ RAR: Normal, < 180 cm/sec, < 3.5 < 60%, >= 180 cm/sec, < 3.5 >= 60%, >= 180 cm/sec, >= 3.5 Total Occlusion: Undetectable; Not applicable [facility]
== END 2019-06-20 16:09 | disposition home or self-care (01) ==
LOC: DI 16:08
PROVIDERS: ATTEND Family Medicine
DX: N85.9 Noninflammatory disorder of uterus, unspecified (principal); N18.4 Chronic kidney disease, stage 4 (severe)
CPT/HCPCS: 76856; 93975

== ENCOUNTER 2019-07-03 09:00 | Outpatient (CLI) | payer MEDICARE, OTHER ==
[2019-07-03 18:52] LABS: BASOPHILS # (AUTO) 0.1 10^3/uL (0.0-0.1); BASOPHILS % (AUTO) 1.2 %; EOSINOPHILS # (AUTO) 0.3 10^3/uL (0.0-0.7); EOSINOPHILS % (AUTO) 5.5 %; HGB - HEMOGLOBIN 9.6 g/dL (12.0-16.0); LYMPHOCYTES # (AUTO) 1.1 10^3/uL (1.5-3.5); LYMPHOCYTES % (AUTO) 17.9 %; MEAN CORPUSCULAR HEMOGLOBIN 28.2 pg (27.0-31.0); MEAN CORPUSCULAR HGB CONC 30.2 g/dL (32.0-36.0); MEAN CORPUSCULAR VOLUME 93.3 fL (81.0-99.0); MEAN PLATELET VOLUME 10.5 fL (7.9-10.8); MONOCYTES # (AUTO) 0.7 10^3/uL (0.0-1.0); MONOCYTES % (AUTO) 11.1 %; NEUTROPHILS # (AUTO) 3.7 10^3/uL (1.5-6.6); PLT - PLATELET COUNT 286 10^3/uL (130-450); RED BLOOD COUNT 3.41 10^6/uL (4.20-5.40); RED CELL DISTRIBUTION WIDTH 13.6 % (12.0-15.0); WHITE BLOOD COUNT 5.9 x10^3/uL (4.8-10.8)
[2019-07-03 18:56] LABS: CALCIUM 8.7 mg/dL (8.5-10.3); MAGNESIUM 2.2 mg/dL (1.7-2.8)
== END 2019-07-03 23:59 | disposition home or self-care (01) ==
LOC: LAB.WCP 09:00
PROVIDERS: ATTEND Internal Medicine Nephrology
DX: N05.9 Unspecified nephritic syndrome with unspecified morphologic changes (principal); E83.40 Disorders of magnesium metabolism, unspecified; D70.9 Neutropenia, unspecified; D63.1 Anemia in chronic kidney disease
CPT/HCPCS: 36415; 80048; 83735; 85025

== ENCOUNTER 2019-08-31 07:00 | Outpatient (CLI) | payer MEDICARE, OTHER ==
[2019-08-31 20:15] LABS: BASOPHILS # (AUTO) 0.1 10^3/uL (0.0-0.1); BASOPHILS % (AUTO) 1.4 %; EOSINOPHILS # (AUTO) 0.3 10^3/uL (0.0-0.7); EOSINOPHILS % (AUTO) 5.3 %; HGB - HEMOGLOBIN 10.5 g/dL (12.0-16.0); LYMPHOCYTES # (AUTO) 0.9 10^3/uL (1.5-3.5); LYMPHOCYTES % (AUTO) 17.6 %; MEAN CORPUSCULAR HEMOGLOBIN 27.9 pg (27.0-31.0); MEAN CORPUSCULAR HGB CONC 30.5 g/dL (32.0-36.0); MEAN CORPUSCULAR VOLUME 91.2 fL (81.0-99.0); MONOCYTES # (AUTO) 0.5 10^3/uL (0.0-1.0); MONOCYTES % (AUTO) 9.4 %; NEUTROPHILS # (AUTO) 3.4 10^3/uL (1.5-6.6); NEUTROPHILS % (AUTO) 66.1 %; PLT - PLATELET COUNT 248 10^3/uL (130-450); RED BLOOD COUNT 3.77 10^6/uL (4.20-5.40); RED CELL DISTRIBUTION WIDTH 13.6 % (12.0-15.0); WHITE BLOOD COUNT 5.1 x10^3/uL (4.8-10.8)
[2019-08-31 20:25] LABS: CALCIUM 9.1 mg/dL (8.5-10.3); MAGNESIUM 2.2 mg/dL (1.7-2.8)
== END 2019-08-31 23:59 | disposition home or self-care (01) ==
LOC: LAB.WCP 07:00
PROVIDERS: ATTEND Internal Medicine Nephrology
DX: N05.9 Unspecified nephritic syndrome with unspecified morphologic changes (principal); D70.9 Neutropenia, unspecified; N18.9 Chronic kidney disease, unspecified; D63.1 Anemia in chronic kidney disease; E83.40 Disorders of magnesium metabolism, unspecified
CPT/HCPCS: 36415; 80048; 83735; 85025

== ENCOUNTER 2019-09-13 14:24 | Outpatient (CLI) | payer MEDICARE, OTHER ==
--- NOTE | 2019-09-14 14:27 | XRAY Report ---
Reason: RIGHT SHOULDER PAIN Procedure Date: 09/13/2019 Accession Number: [id number] / [id number] Procedure: WCP - Shoulder 2 View RT CPT Code: Final Report FULL RESULT: EXAM: RIGHT SHOULDER RADIOGRAPHY EXAM DATE: 09/13/2019 02:57 PM. CLINICAL HISTORY: RIGHT SHOULDER PAIN. COMPARISON: None. TECHNIQUE: 3 views. FINDINGS: A surgical anchor overlies the humeral head. There is narrowing of the glenohumeral joint space. There is no evidence of fracture or dislocation. Degenerative changes are seen in the acromioclavicular joint. There is no focal soft tissue swelling. The visible portions of the right lung are clear. IMPRESSION: No acute fracture or dislocation. [facility]
== END 2019-09-13 23:59 | disposition home or self-care (01) ==
LOC: DI.WCP 14:24
PROVIDERS: ATTEND Family Medicine
DX: M19.011 Primary osteoarthritis, right shoulder (principal)

== ENCOUNTER 2019-11-28 14:20 | Outpatient (CLI) | payer MEDICARE, OTHER ==
[2019-11-28 19:06] LABS: BASOPHILS # (AUTO) 0.1 10^3/uL (0.0-0.1); BASOPHILS % (AUTO) 1.4 %; EOSINOPHILS # (AUTO) 0.3 10^3/uL (0.0-0.7); LYMPHOCYTES # (AUTO) 0.8 10^3/uL (1.5-3.5); LYMPHOCYTES % (AUTO) 16.9 %; MEAN CORPUSCULAR HEMOGLOBIN 28.1 pg (27.0-31.0); MEAN CORPUSCULAR HGB CONC 30.8 g/dL (32.0-36.0); MEAN CORPUSCULAR VOLUME 91.3 fL (81.0-99.0); MEAN PLATELET VOLUME 11.2 fL (7.9-10.8); MONOCYTES # (AUTO) 0.6 10^3/uL (0.0-1.0); MONOCYTES % (AUTO) 11.4 %; NEUTROPHILS # (AUTO) 3.2 10^3/uL (1.5-6.6); NEUTROPHILS % (AUTO) 64.9 %; PLT - PLATELET COUNT 248 10^3/uL (130-450); RED BLOOD COUNT 3.56 10^6/uL (4.20-5.40); RED CELL DISTRIBUTION WIDTH 13.7 % (12.0-15.0)
[2019-11-28 19:56] LABS: CALCIUM 8.8 mg/dL (8.5-10.3); CREATININE 3.3 mg/dL (0.4-1.0); PHOSPHORUS 4.6 mg/dL (2.5-4.6)
[2019-11-28 20:19] LABS: CREATININE,URINE 107.4 mg/dL; PROTEIN/CREATININE RATIO,URINE 0.4 (<=0.2)
== END 2019-11-28 23:59 | disposition home or self-care (01) ==
LOC: LAB.WCP 14:20
PROVIDERS: ATTEND Internal Medicine Nephrology
DX: N05.9 Unspecified nephritic syndrome with unspecified morphologic changes (principal); D70.9 Neutropenia, unspecified; D63.1 Anemia in chronic kidney disease; N18.9 Chronic kidney disease, unspecified; R80.9 Proteinuria, unspecified; E83.30 Disorder of phosphorus metabolism, unspecified; N25.81 Secondary hyperparathyroidism of renal origin
CPT/HCPCS: 36415; 80048; 82570; 83970; 84100; 84156; 85025

== ENCOUNTER 2020-01-30 07:00 | Outpatient (CLI) | payer MEDICARE, OTHER ==
[2020-01-30 16:46] LABS: BASOPHILS # (AUTO) 0.1 10^3/uL (0.0-0.1); BASOPHILS % (AUTO) 1.6 %; EOSINOPHILS # (AUTO) 0.2 10^3/uL (0.0-0.7); EOSINOPHILS % (AUTO) 4.5 %; HGB - HEMOGLOBIN 9.5 g/dL (12.0-16.0); LYMPHOCYTES # (AUTO) 0.9 10^3/uL (1.5-3.5); LYMPHOCYTES % (AUTO) 17.9 %; MEAN CORPUSCULAR HEMOGLOBIN 28.4 pg (27.0-31.0); MEAN CORPUSCULAR HGB CONC 32.4 g/dL (32.0-36.0); MEAN CORPUSCULAR VOLUME 87.5 fL (81.0-99.0); MEAN PLATELET VOLUME 10.9 fL (7.9-10.8); MONOCYTES # (AUTO) 0.7 10^3/uL (0.0-1.0); MONOCYTES % (AUTO) 13.1 %; NEUTROPHILS # (AUTO) 3.2 10^3/uL (1.5-6.6); NEUTROPHILS % (AUTO) 62.5 %; PLT - PLATELET COUNT 251 10^3/uL (130-450); RED BLOOD COUNT 3.35 10^6/uL (4.20-5.40); RED CELL DISTRIBUTION WIDTH 14.1 % (12.0-15.0); WHITE BLOOD COUNT 5.1 x10^3/uL (4.8-10.8)
[2020-01-30 16:59] LABS: CALCIUM 8.8 mg/dL (8.5-10.3); CREATININE 3.1 mg/dL (0.4-1.0)
== END 2020-01-30 23:59 | disposition home or self-care (01) ==
LOC: LAB.WCP 07:00
PROVIDERS: ATTEND Internal Medicine Nephrology
DX: N05.9 Unspecified nephritic syndrome with unspecified morphologic changes (principal); D70.9 Neutropenia, unspecified
CPT/HCPCS: 36415; 80048; 85025

== ENCOUNTER 2020-03-03 08:00 | Outpatient (CLI) | payer MEDICARE, OTHER ==
[2020-03-03 17:52] LABS: BASOPHILS # (AUTO) 0.1 10^3/uL (0.0-0.1); EOSINOPHILS # (AUTO) 0.2 10^3/uL (0.0-0.7); EOSINOPHILS % (AUTO) 4.4 %; HGB - HEMOGLOBIN 8.1 g/dL (12.0-16.0); LYMPHOCYTES # (AUTO) 0.7 10^3/uL (1.5-3.5); LYMPHOCYTES % (AUTO) 13.1 %; MEAN CORPUSCULAR HEMOGLOBIN 27.3 pg (27.0-31.0); MEAN CORPUSCULAR HGB CONC 31.3 g/dL (32.0-36.0); MEAN CORPUSCULAR VOLUME 87.2 fL (81.0-99.0); MEAN PLATELET VOLUME 10.9 fL (7.9-10.8); MONOCYTES # (AUTO) 0.6 10^3/uL (0.0-1.0); MONOCYTES % (AUTO) 11.7 %; NEUTROPHILS # (AUTO) 3.5 10^3/uL (1.5-6.6); NEUTROPHILS % (AUTO) 68.6 %; PLT - PLATELET COUNT 240 10^3/uL (130-450); RED BLOOD COUNT 2.97 10^6/uL (4.20-5.40); RED CELL DISTRIBUTION WIDTH 14.2 % (12.0-15.0); WHITE BLOOD COUNT 5.1 x10^3/uL (4.8-10.8)
[2020-03-03 18:34] LABS: CALCIUM 8.5 mg/dL (8.5-10.3); CREATININE 3.2 mg/dL (0.4-1.0)
== END 2020-03-03 23:59 | disposition home or self-care (01) ==
LOC: LAB.WCP 08:00
PROVIDERS: ATTEND Internal Medicine Nephrology
DX: N05.9 Unspecified nephritic syndrome with unspecified morphologic changes (principal); D70.9 Neutropenia, unspecified; D63.1 Anemia in chronic kidney disease; N18.9 Chronic kidney disease, unspecified
CPT/HCPCS: 36415; 80048; 85025

== ENCOUNTER 2020-03-03 08:00 | Outpatient (CLI) | payer MEDICARE, OTHER ==
[2020-03-05 11:40] LABS: % IRON SATURATION 7 % (20-50); IRON 29 ug/dL (28-170); TOTAL IRON BINDING CAPACITY 391 ug/dL (250-450); TRANSFERRIN 279 mg/dL (192-382)
== END 2020-03-03 23:59 | disposition home or self-care (01) ==
LOC: LAB 08:00
PROVIDERS: ATTEND Internal Medicine Nephrology
DX: D50.0 Iron deficiency anemia secondary to blood loss (chronic) (principal)
CPT/HCPCS: 82728; 83540; 84466

== ENCOUNTER 2020-03-10 16:23 | Outpatient (CLI) | payer MEDICARE, OTHER ==
--- NOTE | 2020-03-10 15:32 | SLEEP CARE CONSULTATION ---
Information from patient questionnaire entered by Anamaria Blanco. I have reviewed and concur with the information entered by Anamaria Blanco. This document represents the service I personally performed and the decisions made by me, Svetlana Dumont, RN, MSN, WEB APPLICATIONS ADMINISTRATOR. History of Present Illness Service Date and Time: 03/10/2020 1500 Previous diagnosis: Severe, Obstructive Sleep Apnea-Hypopnea Syndrome AHI: 55.4 Reason for follow up: annual Equipment type: CPAP Equipment obtained from: [facility] (getting supplies as needed.) Mask style: Nasal Mask brand: Respironics (Dreamwear) Backup mask available: Yes (old back up mask ) Last cushion change: a few days Type of Sleep Study: Polysomnography CPAP Compliance Data - Data Reviewed with Patient Average duration of nightly device use: 7H 10M Compliance rate %: 100 Current pressure setting (cmH2O): 9.5 Humidity settin Heated hose settin Average residual AHI: 5.5 Average large leak: 8M 18S Subjective Patient concerns: reports: epistaxis (slight nose bleed a few times a year - ), other (delay in start and stop of CPAP on/ off switch and display screen blank - took to [facility]. ). denies: aerophagia, mask discomfort, air blowing in eyes, mask leak noise, condensation in mask/hose, nasal congestion, dry mouth, nose, throat Observed to snore while using device: No Current pressure setting perceived as: too low (intermittently) On therapy, patient: reports: sleeping better, awakening more refreshed, being more awake and alert during the day, more rested overall. denies: drowsiness while driving, other Initial [place] Sleepiness Scale score: 16 Allergies and Home Medications Home medication list reviewed: No (hydralazine dose increased) Review of Systems Review of systems same as previous: Yes Physical Exam Height: 5 ft 2 in Weight: 131 lb Weight change since last visit: lost 5 pounds Body Mass Index: 23.9 BMI Classification: Healthy weight Impression and Plan 1. Obstructive Sleep Apnea-Hypopnea Syndrome, severe, with good treatment compliance and slightly elevated apnea control. On CPAP therapy, the patient has better sleep quality and is more rested overall. For her intermittent air hunger and slightly elevated AHI, I will increase her CPAP pressure slightly to [id number]. She is to contact me if the pressure is uncomfortable or if does not resolve air hunger. I will have my office contact patient in regard to device malfunction. Generally that is handled by the DME who discharged the machine to patient even if she is not getting supplies from another company. I will also order the device to be for malfunction. To reduce risk of epitaxis, she is to adjust humidity higher if any nasal dryness.Patient's apnea severity and rationale for treatment to reduce apnea, improve sleep quality and reduce cardiovascular and cerebrovascular events was reviewed. I also reviewed the benefit of consistent device use of CPAP for hypertension. * Continue CPAP pressure at 10 cmH2O * Check device for malfunction * Notify me if snoring with mask or feeling that the pressure is too much or too little * Adjust humidity * Call this office if any problems using CPAP * Return for follow up in 1 year , or sooner if concerns arise Visit Type: Telehealth Phone Patient Location: Home Location of Provider: Home Patient agrees and consents to this telehealth visit type: Yes Patient agrees to have their insurance billed: Yes Time Spent with Patient (minutes): 10 Provider Statement: I spent 100% of the Telehealth Phone Call with the patient with greater than 50% spent counseling the patient and coordination of care.
== END 2020-03-10 16:24 | disposition home or self-care (01) ==
LOC: SC 16:23
PROVIDERS: ATTEND Nurse Practitioner Family
DX: G47.33 Obstructive sleep apnea (adult) (pediatric) (principal)

== ENCOUNTER 2020-04-02 08:36 | Outpatient (CLI) | payer MEDICARE, OTHER | END 2020-04-02 08:37 | disposition home or self-care (01) | LOC: DI 08:36 | PROVIDERS: ATTEND Family Medicine | DX: I08.1 Rheumatic disorders of both mitral and tricuspid valves (principal); I11.9 Hypertensive heart disease without heart failure | CPT/HCPCS: 93306 ==

== ENCOUNTER 2020-05-06 16:21 | Outpatient (CLI) | payer MEDICARE, OTHER ==
[2020-05-06 18:15] LABS: BASOPHILS # (AUTO) 0.1 10^3/uL (0.0-0.1); BASOPHILS % (AUTO) 1.3 %; EOSINOPHILS # (AUTO) 0.2 10^3/uL (0.0-0.7); HGB - HEMOGLOBIN 11.3 g/dL (12.0-16.0); LYMPHOCYTES # (AUTO) 0.8 10^3/uL (1.5-3.5); LYMPHOCYTES % (AUTO) 15.9 %; MEAN CORPUSCULAR HEMOGLOBIN 27.3 pg (27.0-31.0); MEAN CORPUSCULAR VOLUME 85.3 fL (81.0-99.0); MONOCYTES # (AUTO) 0.6 10^3/uL (0.0-1.0); MONOCYTES % (AUTO) 11.6 %; NEUTROPHILS # (AUTO) 3.2 10^3/uL (1.5-6.6); NEUTROPHILS % (AUTO) 66.8 %; PLT - PLATELET COUNT 228 10^3/uL (130-450); RED BLOOD COUNT 4.14 10^6/uL (4.20-5.40); RED CELL DISTRIBUTION WIDTH 16.7 % (12.0-15.0); WHITE BLOOD COUNT 4.7 x10^3/uL (4.8-10.8)
[2020-05-06 18:29] LABS: CALCIUM 9.2 mg/dL (8.5-10.3); CREATININE 3.3 mg/dL (0.4-1.0)
== END 2020-05-06 23:59 | disposition home or self-care (01) ==
LOC: LAB.WCP 16:21
PROVIDERS: ATTEND Internal Medicine Nephrology
DX: N05.9 Unspecified nephritic syndrome with unspecified morphologic changes (principal); D70.9 Neutropenia, unspecified; D63.1 Anemia in chronic kidney disease; N18.9 Chronic kidney disease, unspecified
CPT/HCPCS: 36415; 80048; 85025

== ENCOUNTER 2020-06-02 08:00 | Outpatient (CLI) | payer MEDICARE, OTHER ==
[2020-06-02 18:11] LABS: BASOPHILS # (AUTO) 0.1 10^3/uL (0.0-0.1); BASOPHILS % (AUTO) 1.4 %; EOSINOPHILS # (AUTO) 0.3 10^3/uL (0.0-0.7); EOSINOPHILS % (AUTO) 6.7 %; HGB - HEMOGLOBIN 11.6 g/dL (12.0-16.0); LYMPHOCYTES # (AUTO) 0.8 10^3/uL (1.5-3.5); LYMPHOCYTES % (AUTO) 16.1 %; MEAN CORPUSCULAR HEMOGLOBIN 29.1 pg (27.0-31.0); MEAN CORPUSCULAR HGB CONC 33.9 g/dL (32.0-36.0); MEAN CORPUSCULAR VOLUME 85.9 fL (81.0-99.0); MEAN PLATELET VOLUME 10.7 fL (7.9-10.8); MONOCYTES # (AUTO) 0.6 10^3/uL (0.0-1.0); MONOCYTES % (AUTO) 11.8 %; NEUTROPHILS # (AUTO) 3.2 10^3/uL (1.5-6.6); NEUTROPHILS % (AUTO) 63.6 %; PLT - PLATELET COUNT 237 10^3/uL (130-450); RED BLOOD COUNT 3.98 10^6/uL (4.20-5.40); RED CELL DISTRIBUTION WIDTH 16.3 % (12.0-15.0); WHITE BLOOD COUNT 5.1 x10^3/uL (4.8-10.8)
[2020-06-02 18:40] LABS: CALCIUM 9.2 mg/dL (8.5-10.3); CREATININE 3.8 mg/dL (0.4-1.0)
== END 2020-06-02 23:59 ==
LOC: LAB.WCP 08:00
PROVIDERS: ATTEND Internal Medicine Nephrology
DX: N05.9 Unspecified nephritic syndrome with unspecified morphologic changes (principal); D70.9 Neutropenia, unspecified; N18.9 Chronic kidney disease, unspecified; D63.1 Anemia in chronic kidney disease
CPT/HCPCS: 36415; 80048; 85025

== ENCOUNTER 2020-07-02 08:00 | Outpatient (CLI) | payer MEDICARE, OTHER ==
[2020-07-02 18:22] LABS: BASOPHILS # (AUTO) 0.1 10^3/uL (0.0-0.1); BASOPHILS % (AUTO) 1.3 %; EOSINOPHILS # (AUTO) 0.2 10^3/uL (0.0-0.7); EOSINOPHILS % (AUTO) 4.3 %; HGB - HEMOGLOBIN 10.8 g/dL (12.0-16.0); LYMPHOCYTES # (AUTO) 0.5 10^3/uL (1.5-3.5); LYMPHOCYTES % (AUTO) 10.9 %; MEAN CORPUSCULAR HEMOGLOBIN 28.8 pg (27.0-31.0); MEAN CORPUSCULAR HGB CONC 32.9 g/dL (32.0-36.0); MEAN CORPUSCULAR VOLUME 87.5 fL (81.0-99.0); MEAN PLATELET VOLUME 10.7 fL (7.9-10.8); MONOCYTES # (AUTO) 0.5 10^3/uL (0.0-1.0); MONOCYTES % (AUTO) 10.4 %; NEUTROPHILS # (AUTO) 3.4 10^3/uL (1.5-6.6); NEUTROPHILS % (AUTO) 72.7 %; PLT - PLATELET COUNT 210 10^3/uL (130-450); RED BLOOD COUNT 3.75 10^6/uL (4.20-5.40); RED CELL DISTRIBUTION WIDTH 14.9 % (12.0-15.0); WHITE BLOOD COUNT 4.7 x10^3/uL (4.8-10.8)
[2020-07-02 18:56] LABS: CALCIUM 9.2 mg/dL (8.5-10.3); CREATININE 3.5 mg/dL (0.4-1.0)
== END 2020-07-02 23:59 | disposition home or self-care (01) ==
LOC: LAB.WCP 08:00
PROVIDERS: ATTEND Internal Medicine Nephrology
DX: N05.9 Unspecified nephritic syndrome with unspecified morphologic changes (principal); D70.9 Neutropenia, unspecified; D63.1 Anemia in chronic kidney disease; D50.0 Iron deficiency anemia secondary to blood loss (chronic)
CPT/HCPCS: 36415; 80048; 82728; 83540; 84466; 85025

== ENCOUNTER 2020-07-08 08:00 | Outpatient (CLI) | payer MEDICARE, OTHER ==
[2020-07-08 18:40] LABS: ALBUMIN 4.1 g/dL (3.2-5.5); ALBUMIN/GLOBULIN RATIO 1.3 (1.0-2.2); ALKALINE PHOSPHATASE 110 IU/L (42-121); ALT ALANINE AMINOTRANSFERASE 10 IU/L (10-60); AST ASPARTATE AMINOTRANSFERASE 19 IU/L (10-42); BILIRUBIN,TOTAL 0.8 mg/dL (0.2-1.0); BUN - BLOOD UREA NITROGEN 75 mg/dL (6-20); CARBON DIOXIDE - CO2 24 mmol/L (21-32); CHLORIDE 100 mmol/L (101-111); CHOL/HDL RATIO 2.3 (<4.4); CHOLESTEROL 140 mg/dL; CREATININE 3.6 mg/dL (0.4-1.0); GLUCOSE 81 mg/dL (70-100); HDL CHOLESTEROL 62 mg/dL; LDL CHOLESTEROL,CALCULATED 63 mg/dL; SODIUM 132 mmol/L (135-145); TOTAL PROTEIN 7.3 g/dL (6.7-8.2); VLDL CHOLESTEROL 15 mg/dL
== END 2020-07-08 23:59 | disposition home or self-care (01) ==
LOC: LAB.WCP 08:00
PROVIDERS: ATTEND Internal Medicine Cardiovascular Disease
DX: I25.10 Atherosclerotic heart disease of native coronary artery without angina pectoris (principal)
CPT/HCPCS: 36415; 80053; 80061; 83721

== ENCOUNTER 2020-08-06 07:00 | Outpatient (CLI) | payer MEDICARE, OTHER ==
[2020-08-06 18:29] LABS: BASOPHILS # (AUTO) 0.1 10^3/uL (0.0-0.1); BASOPHILS % (AUTO) 1.4 %; EOSINOPHILS # (AUTO) 0.3 10^3/uL (0.0-0.7); EOSINOPHILS % (AUTO) 4.1 %; LYMPHOCYTES # (AUTO) 0.7 10^3/uL (1.5-3.5); LYMPHOCYTES % (AUTO) 10.2 %; MEAN CORPUSCULAR HEMOGLOBIN 30.6 pg (27.0-31.0); MEAN PLATELET VOLUME 10.4 fL (7.9-10.8); MONOCYTES # (AUTO) 0.5 10^3/uL (0.0-1.0); MONOCYTES % (AUTO) 7.7 %; NEUTROPHILS # (AUTO) 5.3 10^3/uL (1.5-6.6); NEUTROPHILS % (AUTO) 75.9 %; PLT - PLATELET COUNT 273 10^3/uL (130-450)
[2020-08-06 18:50] LABS: CALCIUM 9.1 mg/dL (8.5-10.3); CREATININE 3.6 mg/dL (0.4-1.0)
== END 2020-08-06 23:59 | disposition home or self-care (01) ==
LOC: LAB.WCP 07:00
PROVIDERS: ATTEND Internal Medicine Nephrology
DX: N05.9 Unspecified nephritic syndrome with unspecified morphologic changes (principal); D70.9 Neutropenia, unspecified; D63.1 Anemia in chronic kidney disease; N18.9 Chronic kidney disease, unspecified
CPT/HCPCS: 36415; 80048; 85025

== ENCOUNTER 2020-09-04 08:00 | Outpatient (CLI) | payer MEDICARE, OTHER ==
[2020-09-04 18:47] LABS: HGB - HEMOGLOBIN 9.5 g/dL (12.0-16.0)
[2020-09-04 18:58] LABS: CALCIUM 9.2 mg/dL (8.5-10.3); CREATININE 3.4 mg/dL (0.4-1.0)
== END 2020-09-04 23:59 | disposition home or self-care (01) ==
LOC: LAB.WCP 08:00
PROVIDERS: ATTEND Internal Medicine Nephrology
DX: N05.9 Unspecified nephritic syndrome with unspecified morphologic changes (principal); D64.9 Anemia, unspecified
CPT/HCPCS: 36415; 80048; 85014; 85018

== ENCOUNTER 2020-11-04 08:00 | Outpatient (CLI) | payer MEDICARE, OTHER ==
[2020-11-04 18:57] LABS: BASOPHILS # (AUTO) 0.1 10^3/uL (0.0-0.1); BASOPHILS % (AUTO) 2.2 %; EOSINOPHILS # (AUTO) 0.3 10^3/uL (0.0-0.7); EOSINOPHILS % (AUTO) 6.5 %; HGB - HEMOGLOBIN 10.9 g/dL (12.0-16.0); LYMPHOCYTES # (AUTO) 0.6 10^3/uL (1.5-3.5); LYMPHOCYTES % (AUTO) 12.7 %; MEAN CORPUSCULAR HEMOGLOBIN 29.9 pg (27.0-31.0); MEAN CORPUSCULAR HGB CONC 33.6 g/dL (32.0-36.0); MEAN PLATELET VOLUME 11.1 fL (7.9-10.8); MONOCYTES # (AUTO) 0.5 10^3/uL (0.0-1.0); MONOCYTES % (AUTO) 10.9 %; NEUTROPHILS % (AUTO) 67.5 %; PLT - PLATELET COUNT 227 10^3/uL (130-450); RED BLOOD COUNT 3.64 10^6/uL (4.20-5.40); WHITE BLOOD COUNT 4.5 x10^3/uL (4.8-10.8)
[2020-11-04 19:21] LABS: CALCIUM 9.5 mg/dL (8.5-10.3); CREATININE 3.6 mg/dL (0.4-1.0)
== END 2020-11-04 23:59 | disposition home or self-care (01) ==
LOC: LAB.WCP 08:00
PROVIDERS: ATTEND Internal Medicine Nephrology
DX: N05.9 Unspecified nephritic syndrome with unspecified morphologic changes (principal); D63.1 Anemia in chronic kidney disease; D70.9 Neutropenia, unspecified
CPT/HCPCS: 36415; 80048; 85025

== ENCOUNTER 2020-12-08 08:00 | Outpatient (CLI) | payer MEDICARE, OTHER ==
[2020-12-08 18:03] LABS: BASOPHILS # (AUTO) 0.1 10^3/uL (0.0-0.1); BASOPHILS % (AUTO) 1.4 %; EOSINOPHILS # (AUTO) 0.8 10^3/uL (0.0-0.7); EOSINOPHILS % (AUTO) 14.5 %; HGB - HEMOGLOBIN 10.6 g/dL (12.0-16.0); LYMPHOCYTES # (AUTO) 0.7 10^3/uL (1.5-3.5); LYMPHOCYTES % (AUTO) 12.2 %; MEAN CORPUSCULAR HEMOGLOBIN 28.5 pg (27.0-31.0); MEAN CORPUSCULAR HGB CONC 31.8 g/dL (32.0-36.0); MEAN CORPUSCULAR VOLUME 89.5 fL (81.0-99.0); MONOCYTES # (AUTO) 0.5 10^3/uL (0.0-1.0); MONOCYTES % (AUTO) 8.8 %; NEUTROPHILS # (AUTO) 3.6 10^3/uL (1.5-6.6); NEUTROPHILS % (AUTO) 62.9 %; PLT - PLATELET COUNT 246 10^3/uL (130-450); RED BLOOD COUNT 3.72 10^6/uL (4.20-5.40); RED CELL DISTRIBUTION WIDTH 13.8 % (12.0-15.0); WHITE BLOOD COUNT 5.7 x10^3/uL (4.8-10.8)
[2020-12-08 18:33] LABS: CALCIUM 9.7 mg/dL (8.5-10.3); CREATININE 3.4 mg/dL (0.4-1.0)
== END 2020-12-08 23:59 | disposition home or self-care (01) ==
LOC: LAB.WCP 08:00
PROVIDERS: ATTEND Internal Medicine Nephrology
DX: N05.9 Unspecified nephritic syndrome with unspecified morphologic changes (principal); D70.9 Neutropenia, unspecified; D63.1 Anemia in chronic kidney disease
CPT/HCPCS: 36415; 80048; 85025

== ENCOUNTER 2021-01-01 08:00 | Outpatient (CLI) | payer MEDICARE, OTHER ==
[2021-01-01 17:56] LABS: BASOPHILS # (AUTO) 0.1 10^3/uL (0.0-0.1); BASOPHILS % (AUTO) 1.8 %; EOSINOPHILS # (AUTO) 0.8 10^3/uL (0.0-0.7); EOSINOPHILS % (AUTO) 13.1 %; HGB - HEMOGLOBIN 10.4 g/dL (12.0-16.0); LYMPHOCYTES # (AUTO) 0.7 10^3/uL (1.5-3.5); LYMPHOCYTES % (AUTO) 11.6 %; MEAN CORPUSCULAR HEMOGLOBIN 28.6 pg (27.0-31.0); MEAN CORPUSCULAR HGB CONC 31.5 g/dL (32.0-36.0); MEAN CORPUSCULAR VOLUME 90.7 fL (81.0-99.0); MEAN PLATELET VOLUME 10.7 fL (7.9-10.8); MONOCYTES # (AUTO) 0.6 10^3/uL (0.0-1.0); MONOCYTES % (AUTO) 9.8 %; NEUTROPHILS # (AUTO) 3.6 10^3/uL (1.5-6.6); NEUTROPHILS % (AUTO) 63.3 %; PLT - PLATELET COUNT 248 10^3/uL (130-450); RED BLOOD COUNT 3.64 10^6/uL (4.20-5.40); RED CELL DISTRIBUTION WIDTH 14.4 % (12.0-15.0); WHITE BLOOD COUNT 5.7 x10^3/uL (4.8-10.8)
[2021-01-01 19:22] LABS: CALCIUM 9.5 mg/dL (8.5-10.3); CREATININE 3.1 mg/dL (0.4-1.0)
== END 2021-01-01 23:59 | disposition home or self-care (01) ==
LOC: LAB.WCP 08:00
PROVIDERS: ATTEND Internal Medicine Nephrology
DX: N05.9 Unspecified nephritic syndrome with unspecified morphologic changes (principal); D70.9 Neutropenia, unspecified; D63.1 Anemia in chronic kidney disease
CPT/HCPCS: 36415; 80048; 85025

== ENCOUNTER 2021-02-05 08:00 | Outpatient (CLI) | payer MEDICARE, OTHER ==
[2021-02-05 18:10] LABS: CALCIUM 9.1 mg/dL (8.5-10.3); CREATININE 3.4 mg/dL (0.4-1.0); POTASSIUM 3.8 mmol/L (3.5-5.0)
[2021-02-05 18:16] LABS: BASOPHILS # (AUTO) 0.1 10^3/uL (0.0-0.1); BASOPHILS % (AUTO) 1.6 %; EOSINOPHILS # (AUTO) 0.8 10^3/uL (0.0-0.7); EOSINOPHILS % (AUTO) 14.4 %; HCT - HEMATOCRIT 32.7 % (37.0-47.0); HGB - HEMOGLOBIN 10.3 g/dL (12.0-16.0); LYMPHOCYTES # (AUTO) 0.7 10^3/uL (1.5-3.5); MEAN CORPUSCULAR HEMOGLOBIN 28.8 pg (27.0-31.0); MEAN CORPUSCULAR HGB CONC 31.5 g/dL (32.0-36.0); MEAN CORPUSCULAR VOLUME 91.3 fL (81.0-99.0); MEAN PLATELET VOLUME 11.3 fL (7.9-10.8); MONOCYTES # (AUTO) 0.6 10^3/uL (0.0-1.0); MONOCYTES % (AUTO) 9.9 %; NEUTROPHILS # (AUTO) 3.5 10^3/uL (1.5-6.6); NEUTROPHILS % (AUTO) 61.9 %; PLT - PLATELET COUNT 253 10^3/uL (130-450); RED BLOOD COUNT 3.58 10^6/uL (4.20-5.40); RED CELL DISTRIBUTION WIDTH 14.1 % (12.0-15.0); WHITE BLOOD COUNT 5.6 x10^3/uL (4.8-10.8)
== END 2021-02-05 23:59 | disposition home or self-care (01) ==
LOC: LAB.WCP 08:00
PROVIDERS: ATTEND Internal Medicine Nephrology
DX: N05.9 Unspecified nephritic syndrome with unspecified morphologic changes (principal); D63.1 Anemia in chronic kidney disease; D70.9 Neutropenia, unspecified
CPT/HCPCS: 36415; 80048; 85025

== ENCOUNTER 2021-03-05 08:00 | Outpatient (CLI) | payer MEDICARE, OTHER ==
[2021-03-05 18:55] LABS: CALCIUM 9.2 mg/dL (8.5-10.3); CREATININE 3.6 mg/dL (0.4-1.0); POTASSIUM 4.4 mmol/L (3.5-5.0)
[2021-03-05 19:21] LABS: BASOPHILS # (AUTO) 0.1 10^3/uL (0.0-0.1); BASOPHILS % (AUTO) 2.1 %; EOSINOPHILS # (AUTO) 0.5 10^3/uL (0.0-0.7); EOSINOPHILS % (AUTO) 11.4 %; HCT - HEMATOCRIT 31.6 % (37.0-47.0); HGB - HEMOGLOBIN 9.9 g/dL (12.0-16.0); LYMPHOCYTES # (AUTO) 0.6 10^3/uL (1.5-3.5); LYMPHOCYTES % (AUTO) 13.5 %; MEAN CORPUSCULAR HEMOGLOBIN 28.8 pg (27.0-31.0); MEAN CORPUSCULAR HGB CONC 31.3 g/dL (32.0-36.0); MEAN CORPUSCULAR VOLUME 91.9 fL (81.0-99.0); MEAN PLATELET VOLUME 10.8 fL (7.9-10.8); MONOCYTES # (AUTO) 0.4 10^3/uL (0.0-1.0); MONOCYTES % (AUTO) 10.2 %; NEUTROPHILS # (AUTO) 2.6 10^3/uL (1.5-6.6); NEUTROPHILS % (AUTO) 62.6 %; PLT - PLATELET COUNT 226 10^3/uL (130-450); RED BLOOD COUNT 3.44 10^6/uL (4.20-5.40); WHITE BLOOD COUNT 4.2 x10^3/uL (4.8-10.8)
== END 2021-03-05 23:59 | disposition home or self-care (01) ==
LOC: LAB.WCP 08:00
PROVIDERS: ATTEND Internal Medicine Nephrology
DX: N05.9 Unspecified nephritic syndrome with unspecified morphologic changes (principal); D70.9 Neutropenia, unspecified; D63.1 Anemia in chronic kidney disease
CPT/HCPCS: 36415; 80048; 85025

== ENCOUNTER 2021-03-06 14:47 | Outpatient (CLI) | payer MEDICARE, OTHER ==
[2021-03-06 15:25] VITALS: BP 140/85
--- NOTE | 2021-03-06 15:25 | SLEEP CARE CONSULTATION ---
Information from patient questionnaire entered by Caron Keane. I have reviewed and concur with the information entered by Caron Keane. This document represents the service I personally performed and the decisions made by , Savannah Berrios ARNP. History of Present Illness Service Date and Time: 03/06/2021 1447 Previous diagnosis: Severe, Obstructive Sleep Apnea-Hypopnea Syndrome AHI: 55.4 (in 2016) Reason for follow up: annual (last seen 02/2020) Equipment type: CPAP Equipment obtained from: [facility] (getting supplies as needed) Mask style: Nasal Backup mask available: Yes (old mask) Last cushion change: 1 x week Prior sleep studies: Yes Year and Where: 2016 - [facility] Type of Sleep Study: Polysomnography HPI additional information: HEATHER GALAVIZ was diagnosed to have severe, AHI 55.4, obstructive sleep apnea- hypopnea syndrome and returned today for CPAP therapy annual follow-up. CPAP Compliance Data - Data Reviewed with Patient Average duration of nightly device use: 7 hr 37 min Compliance rate %: 98.3 (180 days) Current pressure setting (cmH2O): 10 Humidity settin Heated hose settin Average residual AHI: 1.4 Average large leak: 5 min 11 sec Subjective Patient concerns: reports: dry mouth, nose, throat (dry mouth). denies: aerophagia, mask discomfort, air blowing in eyes, mask leak noise, condensation in mask/hose, nasal congestion, epistaxis, other Observed to snore while using device: No Current pressure setting perceived as: comfortable On therapy, patient: reports: sleeping better, awakening more refreshed, being more awake and alert during the day, more rested overall. denies: drowsiness while driving Initial [place] Sleepiness Scale score: 16 (in 2016) Current [place] Sleepiness Scale score: 11 Allergies and Home Medications Home medication list reviewed: Yes (hydralazine, ditilazem) Review of Systems Review of systems same as previous: No (Had dialysis stent placed but had to have removed) Physical Exam Blood Pressure: 140/85 Cuff size: regular Heart Rate: 73 O2 Saturation: 99 Height: 5 ft 2 in Weight: 128 lb Body Mass Index: 23.3 BMI Classification: Healthy weight Impression and Plan 1. Obstructive Sleep Apnea-Hypopnea Syndrome, severe, with good treatment compliance and good apnea control. On CPAP therapy, the patient has better sleep quality and is more rested overall. She has significant improvement of her sleep apnea and is satisfied with her treatment. She has no issues except some dry mouth occasionally. She is unable to change the humidity setting because her machine's screen no longer functions. The patients CPAP is over 5 years old and of reasonable use. Thus, the CPAP will be updated. The new CPAPs also have a better humidity system which could assist control of patients dryness symptoms. A DWO prescription will be made. Compliance guidelines for new device and follow up discussed. Patient's apnea severity and rationale for treatment to reduce apnea, improve sleep quality and reduce cardiovascular and cerebrovascular events was reviewed. I also reviewed the benefit of consistent device use of CP AP for hypertension. * Continue autoCPAP pressure at 10 cmH2O * Update machine * Notify me if snoring with mask or feeling that the pressure is too much or too little * Attempt to lose weight * Call this office if any problems using CPAP * Return for follow up one month after getting new machine, or sooner if concerns arise Counseling Topics: Spare mask, Weight control Visit Type: In Office Time Spent with Patient (minutes): 22 Provider Statement: I spent 100% of the Face to Face Visit with the patient with greater than 50% spent counseling the patient and coordination of care.
== END 2021-03-06 14:48 | disposition home or self-care (01) ==
LOC: SC 14:47
PROVIDERS: ATTEND Nurse Practitioner Family
DX: G47.33 Obstructive sleep apnea (adult) (pediatric) (principal)
CPT/HCPCS: 99213; G0463; 99212

== ENCOUNTER 2021-04-07 08:00 | Outpatient (CLI) | payer MEDICARE, OTHER ==
[2021-04-07 18:12] LABS: BASOPHILS # (AUTO) 0.1 10^3/uL (0.0-0.1); BASOPHILS % (AUTO) 1.9 %; EOSINOPHILS # (AUTO) 0.6 10^3/uL (0.0-0.7); EOSINOPHILS % (AUTO) 10.7 %; HGB - HEMOGLOBIN 9.5 g/dL (12.0-16.0); LYMPHOCYTES # (AUTO) 0.6 10^3/uL (1.5-3.5); LYMPHOCYTES % (AUTO) 11.1 %; MEAN CORPUSCULAR HEMOGLOBIN 28.4 pg (27.0-31.0); MEAN CORPUSCULAR HGB CONC 31.7 g/dL (32.0-36.0); MEAN CORPUSCULAR VOLUME 89.8 fL (81.0-99.0); MEAN PLATELET VOLUME 10.8 fL (7.9-10.8); MONOCYTES # (AUTO) 0.4 10^3/uL (0.0-1.0); MONOCYTES % (AUTO) 8.2 %; NEUTROPHILS # (AUTO) 3.5 10^3/uL (1.5-6.6); NEUTROPHILS % (AUTO) 67.5 %; PLT - PLATELET COUNT 226 10^3/uL (130-450); RED BLOOD COUNT 3.34 10^6/uL (4.20-5.40); RED CELL DISTRIBUTION WIDTH 13.9 % (12.0-15.0); WHITE BLOOD COUNT 5.2 x10^3/uL (4.8-10.8)
[2021-04-07 18:30] LABS: CREATININE 3.6 mg/dL (0.4-1.0); POTASSIUM 4.3 mmol/L (3.5-5.0)
== END 2021-04-07 23:59 | disposition home or self-care (01) ==
LOC: LAB.WCP 08:00
PROVIDERS: ATTEND Internal Medicine Nephrology
DX: N05.9 Unspecified nephritic syndrome with unspecified morphologic changes (principal); D70.9 Neutropenia, unspecified; D63.1 Anemia in chronic kidney disease; D50.0 Iron deficiency anemia secondary to blood loss (chronic)
CPT/HCPCS: 36415; 80048; 82728; 83540; 84466; 85025

== ENCOUNTER 2021-05-14 11:00 | Outpatient (CLI) | payer MEDICARE, OTHER ==
[2021-05-14 18:05] LABS: BASOPHILS # (AUTO) 0.1 10^3/uL (0.0-0.1); BASOPHILS % (AUTO) 1.8 %; EOSINOPHILS # (AUTO) 0.4 10^3/uL (0.0-0.7); EOSINOPHILS % (AUTO) 8.8 %; HCT - HEMATOCRIT 30.5 % (37.0-47.0); HGB - HEMOGLOBIN 9.8 g/dL (12.0-16.0); LYMPHOCYTES # (AUTO) 0.6 10^3/uL (1.5-3.5); LYMPHOCYTES % (AUTO) 11.4 %; MEAN CORPUSCULAR HEMOGLOBIN 28.7 pg (27.0-31.0); MEAN CORPUSCULAR HGB CONC 32.1 g/dL (32.0-36.0); MEAN CORPUSCULAR VOLUME 89.4 fL (81.0-99.0); MEAN PLATELET VOLUME 11.4 fL (7.9-10.8); MONOCYTES # (AUTO) 0.6 10^3/uL (0.0-1.0); NEUTROPHILS # (AUTO) 3.3 10^3/uL (1.5-6.6); NEUTROPHILS % (AUTO) 66.6 %; PLT - PLATELET COUNT 235 10^3/uL (130-450); RED BLOOD COUNT 3.41 10^6/uL (4.20-5.40); RED CELL DISTRIBUTION WIDTH 14.6 % (12.0-15.0)
[2021-05-14 18:21] LABS: CALCIUM 8.9 mg/dL (8.5-10.3); CREATININE 3.9 mg/dL (0.4-1.0); POTASSIUM 3.4 mmol/L (3.5-5.0)
== END 2021-05-14 23:59 | disposition home or self-care (01) ==
LOC: LAB.WCP 11:00
PROVIDERS: ATTEND Internal Medicine Nephrology
DX: N05.9 Unspecified nephritic syndrome with unspecified morphologic changes (principal); D70.9 Neutropenia, unspecified; D63.1 Anemia in chronic kidney disease
CPT/HCPCS: 36415; 80048; 85025

== ENCOUNTER 2021-06-18 08:00 | Outpatient (CLI) | payer MEDICARE, OTHER ==
[2021-06-18 17:58] LABS: BASOPHILS # (AUTO) 0.1 10^3/uL (0.0-0.1); BASOPHILS % (AUTO) 2.5 %; EOSINOPHILS # (AUTO) 0.4 10^3/uL (0.0-0.7); EOSINOPHILS % (AUTO) 8.6 %; HCT - HEMATOCRIT 28.1 % (37.0-47.0); HGB - HEMOGLOBIN 8.8 g/dL (12.0-16.0); LYMPHOCYTES # (AUTO) 0.6 10^3/uL (1.5-3.5); LYMPHOCYTES % (AUTO) 14.3 %; MEAN CORPUSCULAR HEMOGLOBIN 28.2 pg (27.0-31.0); MEAN CORPUSCULAR HGB CONC 31.3 g/dL (32.0-36.0); MEAN CORPUSCULAR VOLUME 90.1 fL (81.0-99.0); MONOCYTES # (AUTO) 0.4 10^3/uL (0.0-1.0); NEUTROPHILS # (AUTO) 2.8 10^3/uL (1.5-6.6); NEUTROPHILS % (AUTO) 64.1 %; PLT - PLATELET COUNT 231 10^3/uL (130-450); RED BLOOD COUNT 3.12 10^6/uL (4.20-5.40); RED CELL DISTRIBUTION WIDTH 14.3 % (12.0-15.0); WHITE BLOOD COUNT 4.4 x10^3/uL (4.8-10.8)
[2021-06-18 18:07] LABS: CALCIUM 9.2 mg/dL (8.5-10.3); CREATININE 3.2 mg/dL (0.4-1.0); POTASSIUM 3.6 mmol/L (3.5-5.0)
== END 2021-06-18 23:59 | disposition home or self-care (01) ==
LOC: LAB.WCP 08:00
PROVIDERS: ATTEND Internal Medicine Nephrology
DX: N05.9 Unspecified nephritic syndrome with unspecified morphologic changes (principal); D70.9 Neutropenia, unspecified; D63.1 Anemia in chronic kidney disease
CPT/HCPCS: 36415; 80048; 85025

== ENCOUNTER 2021-07-14 08:00 | Outpatient (CLI) | payer MEDICARE, OTHER ==
[2021-07-14 18:00] LABS: BASOPHILS # (AUTO) 0.1 10^3/uL (0.0-0.1); BASOPHILS % (AUTO) 1.8 %; EOSINOPHILS # (AUTO) 0.3 10^3/uL (0.0-0.7); EOSINOPHILS % (AUTO) 6.5 %; HCT - HEMATOCRIT 27.6 % (37.0-47.0); HGB - HEMOGLOBIN 8.4 g/dL (12.0-16.0); LYMPHOCYTES # (AUTO) 0.5 10^3/uL (1.5-3.5); MEAN CORPUSCULAR HEMOGLOBIN 27.5 pg (27.0-31.0); MEAN CORPUSCULAR HGB CONC 30.4 g/dL (32.0-36.0); MEAN CORPUSCULAR VOLUME 90.2 fL (81.0-99.0); MONOCYTES # (AUTO) 0.5 10^3/uL (0.0-1.0); MONOCYTES % (AUTO) 9.6 %; NEUTROPHILS # (AUTO) 3.5 10^3/uL (1.5-6.6); NEUTROPHILS % (AUTO) 70.7 %; PLT - PLATELET COUNT 230 10^3/uL (130-450); RED BLOOD COUNT 3.06 10^6/uL (4.20-5.40); RED CELL DISTRIBUTION WIDTH 14.1 % (12.0-15.0); WHITE BLOOD COUNT 4.9 x10^3/uL (4.8-10.8)
[2021-07-14 18:11] LABS: CALCIUM 9.1 mg/dL (8.5-10.3); CREATININE 3.6 mg/dL (0.4-1.0); POTASSIUM 4.2 mmol/L (3.5-5.0)
== END 2021-07-14 23:59 | disposition home or self-care (01) ==
LOC: LAB.WCP 08:00
PROVIDERS: ATTEND Internal Medicine Nephrology
DX: N05.9 Unspecified nephritic syndrome with unspecified morphologic changes (principal); D70.9 Neutropenia, unspecified; D63.1 Anemia in chronic kidney disease
CPT/HCPCS: 36415; 80048; 85025

== ENCOUNTER 2021-08-12 07:55 | Outpatient (CLI) | payer MEDICARE, OTHER | END 2021-08-12 07:56 | disposition home or self-care (01) | LOC: DI 07:55 | PROVIDERS: ATTEND Family Medicine | DX: I48.0 Paroxysmal atrial fibrillation (principal); I11.9 Hypertensive heart disease without heart failure; I71.2 Thoracic aortic aneurysm, without rupture; I08.3 Combined rheumatic disorders of mitral, aortic and tricuspid valves; I70.0 Atherosclerosis of aorta | CPT/HCPCS: 93306 ==

== ENCOUNTER 2021-08-26 09:12 | Outpatient (CLI) | payer MEDICARE, OTHER ==
--- NOTE | 2021-08-31 11:30 | CT Report ---
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 Axial 5 mm soft tissue kernel reconstructions were performed as well as 8 mm axial MIP and cor onal and sagittal 5 mm reformations. For radiation dose reduction, the following was used: automate d exposure control, adjustment of mA and/or kV according to patient size. COMPARISON: CT chest 09/05/2013 FINDINGS: Image quality: Excellent. Lungs and pleura: No acute air space opacities. No pleural effusions or pneumothorax. Central and peripheral airways are patent and normal in caliber. Mediastinum: Heart size is enlarged with trace pericardial effusion. No mediastinal adenopathy by s ize criteria. Thoracic aorta and central pulmonary arteries are normal in size. Esophagus is normal in caliber. No hiatal hernia. Bones and chest wall: No suspicious bony lesions. No vertebral body compression fractures. No axil yanet or supraclavicular adenopathy by size criteria. The thyroid is normal in size and there are no incidental findings. Abdomen: Stone is present within the gallbladder lumen without wall thickening. Kidneys are atrophied bilaterally. There is aneurysmal dilation of the abdominal aorta. Aneurysmal dilation begins in the suprarenal portion. Greatest dimensions are noted for renal he measuring 5.1 x 5.1 cm. It is not full y included within the [id number]. No aneurysmal dilation is identified on the 2013 exam. Otherwise , visualized upper abdominal solid organs and bowel loops appear normal in the absence of contrast. IMPRESSION: 1. Abdominal aortic aneurysmal dilation, incompletely visualized as above. This is new compared to 20 13. CTA abdomen and pelvis is recommended for further evaluation. 2. Cholelithiasis, without imaging evidence of cholecystitis. CLINICAL RECOMMENDATION STATEMENTS: In patients <35 years with an ITN detected on CT, MRI, or extrathyroidal ultrasound, the Committee re commends further evaluation with dedicated thyroid ultrasound if the nodule is "e1 cm and has no susp icious imaging features, and if the patient has normal life expectancy. In patients "e35 years with an ITN detected on CT, MRI, or extrathyroidal ultrasound, the Committee r ecommends further evaluation with dedicated thyroid ultrasound if the nodule is "e1.5 cm and has no s uspicious imaging features, and if the patient has normal life expectancy. (ACR, 2014) Reviewed by: Kamryn Botello MD on 08/31/2021 11:29 AM PDT Approved by: Kamryn Botello MD on 08/31/2021 11:29 AM PDT Station ID: [id number]
== END 2021-08-26 09:13 | disposition home or self-care (01) ==
LOC: DI 09:12
PROVIDERS: ATTEND Family Medicine
DX: I71.2 Thoracic aortic aneurysm, without rupture (principal); I71.4 Abdominal aortic aneurysm, without rupture; K80.20 Calculus of gallbladder without cholecystitis without obstruction

== ENCOUNTER 2021-09-03 08:00 | Outpatient (CLI) | payer MEDICARE, OTHER ==
[2021-09-03 18:02] LABS: BASOPHILS # (AUTO) 0.1 10^3/uL (0.0-0.1); BASOPHILS % (AUTO) 1.6 %; EOSINOPHILS # (AUTO) 0.5 10^3/uL (0.0-0.7); EOSINOPHILS % (AUTO) 9.4 %; HCT - HEMATOCRIT 30.2 % (37.0-47.0); HGB - HEMOGLOBIN 9.3 g/dL (12.0-16.0); LYMPHOCYTES # (AUTO) 0.6 10^3/uL (1.5-3.5); LYMPHOCYTES % (AUTO) 11.4 %; MEAN CORPUSCULAR HEMOGLOBIN 28.4 pg (27.0-31.0); MEAN CORPUSCULAR HGB CONC 30.8 g/dL (32.0-36.0); MEAN CORPUSCULAR VOLUME 92.4 fL (81.0-99.0); MEAN PLATELET VOLUME 11.5 fL (7.9-10.8); MONOCYTES # (AUTO) 0.6 10^3/uL (0.0-1.0); MONOCYTES % (AUTO) 12.8 %; NEUTROPHILS # (AUTO) 3.2 10^3/uL (1.5-6.6); NEUTROPHILS % (AUTO) 64.4 %; PLT - PLATELET COUNT 224 10^3/uL (130-450); RED BLOOD COUNT 3.27 10^6/uL (4.20-5.40); RED CELL DISTRIBUTION WIDTH 18.6 % (12.0-15.0); WHITE BLOOD COUNT 4.9 x10^3/uL (4.8-10.8)
[2021-09-03 18:10] LABS: CALCIUM 8.9 mg/dL (8.5-10.3); CREATININE 3.5 mg/dL (0.4-1.0); POTASSIUM 3.8 mmol/L (3.5-5.0)
== END 2021-09-03 23:59 | disposition home or self-care (01) ==
LOC: LAB.WCP 08:00
PROVIDERS: ATTEND Internal Medicine Nephrology
DX: N05.9 Unspecified nephritic syndrome with unspecified morphologic changes (principal); D70.9 Neutropenia, unspecified; D63.1 Anemia in chronic kidney disease
CPT/HCPCS: 36415; 80048; 85025

== ENCOUNTER 2021-09-04 16:04 | Outpatient (CLI) | payer MEDICARE, OTHER ==
--- NOTE | 2021-09-04 17:21 | Ultrasound Report ---
PROCEDURE: Retroperitoneal Limited INDICATIONS: AAA TECHNIQUE: Real time scanning was performed of the aorta and iliac arteries, with image documentatio n. COMPARISON: None FINDINGS: Aorta: Proximal aortic diameter measures 2.3 x 1.9 cm. Mid-aorta measures 5.0 x 5.2 cm. Distal aor tic diameter is 2.6 x 3.0 cm. Iliac arteries: Right common iliac artery measures 1.3 x 1.2 cm. Left common iliac artery measures 1.1 x 1.3 cm. IMPRESSION: Aneurysmal dilation of the mid abdominal aorta as above. Reviewed by: Kamryn Botello MD on 09/04/2021 5:20 PM PDT Approved by: Kamryn Botello MD on 09/04/2021 5:20 PM PDT Station ID: [id number]
== END 2021-09-04 16:05 | disposition home or self-care (01) ==
LOC: DI 16:04
PROVIDERS: ATTEND Family Medicine
DX: I71.4 Abdominal aortic aneurysm, without rupture (principal)

== ENCOUNTER 2021-10-08 08:00 | Outpatient (CLI) | payer MEDICARE, OTHER ==
[2021-10-08 17:55] LABS: BASOPHILS # (AUTO) 0.1 10^3/uL (0.0-0.1); EOSINOPHILS # (AUTO) 0.5 10^3/uL (0.0-0.7); EOSINOPHILS % (AUTO) 9.4 %; HCT - HEMATOCRIT 31.7 % (37.0-47.0); HGB - HEMOGLOBIN 10.3 g/dL (12.0-16.0); LYMPHOCYTES # (AUTO) 0.5 10^3/uL (1.5-3.5); LYMPHOCYTES % (AUTO) 9.1 %; MEAN CORPUSCULAR HGB CONC 32.5 g/dL (32.0-36.0); MEAN CORPUSCULAR VOLUME 95.5 fL (81.0-99.0); MEAN PLATELET VOLUME 11.1 fL (7.9-10.8); MONOCYTES # (AUTO) 0.5 10^3/uL (0.0-1.0); MONOCYTES % (AUTO) 10.4 %; NEUTROPHILS # (AUTO) 3.5 10^3/uL (1.5-6.6); NEUTROPHILS % (AUTO) 68.9 %; PLT - PLATELET COUNT 189 10^3/uL (130-450); RED BLOOD COUNT 3.32 10^6/uL (4.20-5.40); RED CELL DISTRIBUTION WIDTH 18.5 % (12.0-15.0); WHITE BLOOD COUNT 5.1 x10^3/uL (4.8-10.8)
[2021-10-08 18:03] LABS: CREATININE 2.9 mg/dL (0.4-1.0); POTASSIUM 3.7 mmol/L (3.5-5.0)
== END 2021-10-08 23:59 | disposition home or self-care (01) ==
LOC: LAB.WCP 08:00
PROVIDERS: ATTEND Family Medicine
DX: N05.9 Unspecified nephritic syndrome with unspecified morphologic changes (principal); N18.5 Chronic kidney disease, stage 5; D63.1 Anemia in chronic kidney disease
CPT/HCPCS: 36415; 80048; 82565; 85025

== ENCOUNTER 2021-11-13 08:00 | Outpatient (CLI) | payer MEDICARE, OTHER ==
[2021-11-13 18:06] LABS: BASOPHILS # (AUTO) 0.1 10^3/uL (0.0-0.1); EOSINOPHILS # (AUTO) 0.3 10^3/uL (0.0-0.7); EOSINOPHILS % (AUTO) 6.6 %; HCT - HEMATOCRIT 32.3 % (37.0-47.0); HGB - HEMOGLOBIN 10.5 g/dL (12.0-16.0); LYMPHOCYTES # (AUTO) 0.5 10^3/uL (1.5-3.5); LYMPHOCYTES % (AUTO) 11.6 %; MEAN CORPUSCULAR HGB CONC 32.5 g/dL (32.0-36.0); MEAN CORPUSCULAR VOLUME 95.3 fL (81.0-99.0); MEAN PLATELET VOLUME 11.6 fL (7.9-10.8); MONOCYTES # (AUTO) 0.4 10^3/uL (0.0-1.0); MONOCYTES % (AUTO) 8.7 %; NEUTROPHILS # (AUTO) 3.2 10^3/uL (1.5-6.6); NEUTROPHILS % (AUTO) 70.4 %; PLT - PLATELET COUNT 196 10^3/uL (130-450); RED BLOOD COUNT 3.39 10^6/uL (4.20-5.40); RED CELL DISTRIBUTION WIDTH 15.3 % (12.0-15.0); WHITE BLOOD COUNT 4.6 x10^3/uL (4.8-10.8)
[2021-11-13 18:22] LABS: CALCIUM 8.7 mg/dL (8.5-10.3); CREATININE 3.3 mg/dL (0.4-1.0); POTASSIUM 3.8 mmol/L (3.5-5.0)
== END 2021-11-13 23:59 | disposition home or self-care (01) ==
LOC: LAB.WCP 08:00
PROVIDERS: ATTEND Internal Medicine Nephrology
DX: N05.9 Unspecified nephritic syndrome with unspecified morphologic changes (principal); D70.9 Neutropenia, unspecified; D63.1 Anemia in chronic kidney disease
CPT/HCPCS: 36415; 80048; 85025

== ENCOUNTER 2022-01-01 13:16 | Outpatient (CLI) | payer MEDICARE, OTHER ==
[2022-01-01 18:05] LABS: BASOPHILS # (AUTO) 0.1 10^3/uL (0.0-0.1); BASOPHILS % (AUTO) 1.6 %; EOSINOPHILS # (AUTO) 0.2 10^3/uL (0.0-0.7); HCT - HEMATOCRIT 33.3 % (37.0-47.0); HGB - HEMOGLOBIN 10.5 g/dL (12.0-16.0); LYMPHOCYTES # (AUTO) 0.5 10^3/uL (1.5-3.5); LYMPHOCYTES % (AUTO) 10.1 %; MEAN CORPUSCULAR HEMOGLOBIN 29.3 pg (27.0-31.0); MEAN CORPUSCULAR HGB CONC 31.5 g/dL (32.0-36.0); MEAN PLATELET VOLUME 11.4 fL (7.9-10.8); MONOCYTES # (AUTO) 0.5 10^3/uL (0.0-1.0); NEUTROPHILS # (AUTO) 3.2 10^3/uL (1.5-6.6); NEUTROPHILS % (AUTO) 72.1 %; PLT - PLATELET COUNT 200 10^3/uL (130-450); RED BLOOD COUNT 3.58 10^6/uL (4.20-5.40); WHITE BLOOD COUNT 4.4 x10^3/uL (4.8-10.8)
[2022-01-01 18:26] LABS: CALCIUM 9.3 mg/dL (8.5-10.3); CREATININE 3.6 mg/dL (0.4-1.0); POTASSIUM 4.6 mmol/L (3.5-5.0)
== END 2022-01-01 13:17 | disposition home or self-care (01) ==
LOC: LAB.N 13:16
PROVIDERS: ATTEND Internal Medicine Nephrology
DX: N05.9 Unspecified nephritic syndrome with unspecified morphologic changes (principal); D70.9 Neutropenia, unspecified; D63.1 Anemia in chronic kidney disease
CPT/HCPCS: 36415; 80048; 85025

== ENCOUNTER 2022-01-10 09:41 | Outpatient (CLI) | payer MEDICARE, OTHER | END 2022-01-10 09:42 | disposition critical access hospital (66) | LOC: EMS 09:41 | DX: K92.0 Hematemesis (principal) | CPT/HCPCS: A0425; A0427 ==

== ENCOUNTER 2022-01-10 09:56 | Emergency (ER) | payer MEDICARE, OTHER ==
[2022-01-10] MEDS ORDERED: SODIUM CHLORIDE 0.9% 1,000 ML IV STA ×3 (10:07→22:12)
--- NOTE | 2022-01-10 10:07 | ED Physician Documentation ---
PD HPI NVD - Stated complaint Stated Complaint: VOMITING BLOOD - History obtained from History obtained from: Patient - History of Present Illness Timing - onset: Last night (about 10 pm, she states onset of abrupt nausea, vomiting and diarrhea occurring several times hourly over the next several hours. At about 4 am, she noted dark blood and coffee ground appearance in her emesis. Some upper abd pain, not diffuse. Still with diarrhea, but did not notice dark stool.) Timing - details: Abrupt onset Associated symptoms: Abdominal pain (crampy upper abd intermittent with the vomiting.), Hematemesis (after 6 hours of vomiting). No: Melena, Near syncope / syncope, Loss of appetite Contributing factors: Bad food (She states the Posta and meatballs her made tasted bad when she ate them at dinner last night.). No: Sick contact, Travel, Recent antibiotics, Alcohol use, Anticoagulated Similar symptoms before: Has not had sx before Recently seen: Clinic Review of Systems Constitutional: denies: Fever, Chills, Fatigue Nose: denies: Rhinorrhea / runny nose, Congestion Throat: denies: Sore throat Respiratory: denies: Cough GI: reports: Abdominal Pain, Nausea, Vomiting, Diarrhea, Hematemesis. denies: Bloody / black stool : denies: Frequency Neurologic: reports: Generalized weakness. denies: Focal weakness, Numbness, Near syncope, Headache Immunocompromised: denies: Immunocompromised PD PAST MEDICAL HISTORY - Past Medical History Cardiovascular: Hypertension, High cholesterol, Coronary artery disease, Atrial fibrillation (paroxysmal), Other (abdominal aneurysm being watched, with U/S last done in Aug 2021.) Respiratory: Sleep apnea Neuro: None Endocrine/Autoimmune: None GI: GI bleed : Renal insuffiency (followed by TRES Mcintyre, has fistula placed recently, but not matured. Has had elevated creatinine to 3.8 for awhile. ), Other HEENT: None Psych: None Musculoskeletal: None Derm: None - Past Surgical History Past Surgical History: Yes General: Colonoscopy Ortho: Rotator cuff repair Cardiovascular: Coronary stent HEENT: Cataracts - Present Medications Home Medications: Ambulatory Orders Medication Instructions Recorded Confirmed Fluticasone Propionate [Flonase 1 spray NS BID PRN 06/04/15 01/10/22 Allergy Relief] Nitroglycerin [Nitrostat] 0.4 mg SL Q5MIN PRN 06/04/15 01/10/22 Cholecalciferol (Vitamin D3) 1,000 unit PO DAILY 04/06/16 01/10/22 [Vitamin D3] Aspirin [Aspirin EC] 81 mg PO QPM 08/06/16 01/10/22 Acetaminophen [Tylenol] 650 mg PO Q4HR PRN #0 tablet 08/07/16 03/21/20 Atorvastatin [Lipitor] 10 mg PO TIDWM 09/16/16 01/10/22 carvediloL [Coreg] 25 mg PO BID 07/28/18 01/10/22 dilTIAZem HCl [Diltiazem 24Hr ER] 120 mg ORAL DAILY 07/28/18 01/10/22 hydrALAZINE [Apresoline] 25 mg PO PRN PRN 07/28/18 01/10/22 Cetirizine [ZyrTEC] 10 mg PO DAILY 09/25/18 01/10/22 Ferrous Sulfate 325 mg PO DAILY 09/25/18 03/21/20 Spironolactone [Aldactone] 25 mg PO DAILY 01/10/22 01/10/22 Torsemide 20 mg PO DAILY 01/10/22 01/10/22 cloNIDine 0.1 MG PATCH 1 each TOP Q7D 01/10/22 01/10/22 [Lydcrger-Hmo-8] - Allergies Allergies/Adverse Reactions: Allergies Allergy/AdvReac Type Severity Reaction Status Date / Time rivaroxaban [From Xarelto] Allergy Unknown Verified 01/10/22 10:04 amlodipine AdvReac Edema Verified 01/10/22 10:04 losartan AdvReac Dizziness Verified 01/10/22 10:04 oxycodone AdvReac Nausea Verified 01/10/22 10:04 - Living Situation Living Situation: reports: With spouse/s.o. Living Arrangement: reports: At home - Social History Does the pt smoke?: No Smoking Status: Never smoker Does the pt drink ETOH?: Yes Does the pt have substance abuse?: No - Family History Family history: reports: Non contributory - Immunizations Immunizations are current?: Yes - POLST Patient has POLST: No PD ED PE NORMAL - Vitals Vital signs reviewed: Yes - General General: Alert and oriented X 3, Well developed/nourished, Other (Appears nauseated and holding an emesis bag. She has vomit with some mucus and phlegm and a small amount of dark blood to coffee-ground appearance.) - HEENT HEENT: Pharynx benign - Neck Neck: Supple, no meningeal sign, No adenopathy - Cardiac Cardiac: RRR, No murmur - Respiratory Respiratory: Clear bilaterally - Abdomen Abdomen: Soft, Non distended, No organomegaly, Other (Some tenderness in epigastric area without guarding or percussion tenderness.). No: Normal bowel sounds (decreased) - Female Female : Deferred - Rectal Rectal: Other (some dark stool at vault. ) - Derm Derm: Normal color, Warm and dry - Extremities Extremities: No tenderness to palpate, Normal ROM s pain, No calf tenderness / cord, Other (1+ edema in both legs/ankles. ) - Neuro Neuro: Alert and oriented X 3, No motor deficit, Normal speech Results - Vitals Vitals: Vital Signs - 24 hr 01/10/22 01/10/22 01/10/22 10:04 11:14 11:30 Temperature 36.5 C Heart Rate 76 78 82 Respiratory 14 18 24 Rate Blood Pressure 122/65 183/71 H 238/86 H O2 Saturation 96 100 100 01/10/22 01/10/22 01/10/22 12:41 12:47 12:57 Temperature 37.2 C 37.3 C Heart Rate 75 78 79 Respiratory 16 18 20 Rate Blood Pressure 191/73 H 188/66 H 186/63 H O2 Saturation 100 01/10/22 01/10/22 01/10/22 13:09 14:06 14:07 Temperature 37.5 C 37.5 C Heart Rate 82 77 78 Respiratory 16 16 16 Rate Blood Pressure 166/59 H 166/59 H O2 Saturation 100 100 01/10/22 01/10/22 01/10/22 15:20 15:21 15:55 Temperature 37.5 C 37.5 C 36.9 C Heart Rate 72 76 60 Respiratory 16 16 18 Rate Blood Pressure 188/75 H 188/75 H 118/57 L O2 Saturation 100 99 01/10/22 01/10/22 01/10/22 16:26 16:58 17:22 Temperature Heart Rate 71 70 133 H Respiratory 16 18 21 Rate Blood Pressure 193/57 H 196/65 H 187/109 H O2 Saturation 100 100 100 01/10/22 01/10/22 01/10/22 17:30 17:40 18:03 Temperature Heart Rate 129 H 74 84 Respiratory 18 14 13 Rate Blood Pressure 180/98 H 117/58 L 136/61 H O2 Saturation 100 100 100 01/10/22 01/10/22 19:00 19:21 Temperature Heart Rate 132 H 72 Respiratory 17 16 Rate Blood Pressure 158/90 H 100/43 L O2 Saturation 100 100 Oxygen O2 Source Room air - EKG (time done) 17:23 Rate: Rate (enter#) (132) Rhythm: Atrial flutter [place]: Normal Intervals: Normal MO Ischemia: ST depression (likely rate related. ) - Labs Labs: Microbiology 01/10/22 14:00 Occult Blood - Final Stool Laboratory Tests 01/10/22 01/10/22 01/10/22 10:55 10:55 10:55 WBC 6.4 RBC 2.27 L Hgb 6.7 L* Hct 20.8 L MCV 91.6 MCH 29.5 MCHC 32.2 RDW 14.3 Plt Count 187 MPV 11.4 H Neut # (Auto) 5.2 Lymph # (Auto) 0.7 L Door # (Auto) 0.4 Eos # (Auto) 0.1 Baso # (Auto) 0.1 Absolute Nucleated RBC 0.00 Nucleated RBC % 0.0 PT 15.6 H INR 1.4 H APTT 19.6 L Sodium 134 L Potassium 5.1 H Chloride 103 Carbon Dioxide 16 L Anion Gap 15.0 H BUN 124 H* Creatinine 4.5 H Estimated GFR (MDRD) 9 L Glucose 131 H Calcium 8.7 Total Bilirubin 0.7 AST 17 ALT < 10 L Alkaline Phosphatase 60 Troponin I High Sens Total Protein 6.1 L Albumin 3.5 Globulin 2.6 Albumin/Globulin Ratio 1.3 Lipase 61 H Blood Type Antibody Screen Crossmatch IS Only 01/10/22 01/10/22 01/10/22 10:55 10:55 12:39 WBC RBC Hgb Hct MCV MCH MCHC RDW Plt Count MPV Neut # (Auto) Lymph # (Auto) Door # (Auto) Eos # (Auto) Baso # (Auto) Absolute Nucleated RBC Nucleated RBC % PT INR APTT Sodium 133 L Potassium 5.0 Chloride 103 Carbon Dioxide 16 L Anion Gap 14.0 H BUN 123 H* Creatinine 4.3 H Estimated GFR (MDRD) 10 L Glucose 104 H Calcium 8.4 L Total Bilirubin AST ALT Alkaline Phosphatase Troponin I High Sens 18.0 H* Total Protein Albumin Globulin Albumin/Globulin Ratio Lipase Blood Type B POSITIVE Antibody Screen NEGATIVE Crossmatch IS Only See Detail 01/10/22 15:45 WBC RBC Hgb 8.5 L Hct 25.4 L MCV MCH MCHC RDW Plt Count MPV Neut # (Auto) Lymph # (Auto) Door # (Auto) Eos # (Auto) Baso # (Auto) Absolute Nucleated RBC Nucleated RBC % PT INR APTT Sodium Potassium Chloride Carbon Dioxide Anion Gap BUN Creatinine Estimated GFR (MDRD) Glucose Calcium Total Bilirubin AST ALT Alkaline Phosphatase Troponin I High Sens Total Protein Albumin Globulin Albumin/Globulin Ratio Lipase Blood Type Antibody Screen Crossmatch IS Only - Rads (name of study) abd/pelvic CT Radiology: Prelim report reviewed (no bowel obstruction nor free fluid. 5.3 cm AAA similar, possibly slightly larger, to prior U/S Aug 2021. gallstones, diverticula. No acute infection. Uterine fibroids. ), See rad report PD MEDICAL DECISION MAKING - ED course Complexity details: reviewed results (Hemoglobin 6.7 with recent hemoglobin 10.6 earlier this month. Creatinine 4.6 with recent 3.8. BUN is elevated. LFTs are normal.), considered differential (Abrupt onset nausea vomiting and diarrhea sounds likely to be viral gastroenteritis or food related. Her did not have similar symptoms. Her kidney function is elevated from baseline but I would think it is related to hydration and GI bleed.), d/w patient, d/w renewable energy consultant (Dr. Khan for surgery who is available for scoping the patient if needed. He reviewed her chart and she had had a recent EGD chest in October without any acute abnormalities. Dr. Montero did not feel the patient de facto needed another scope unless bleeding does not stop readily.) ED course: The patient without any history of blood thinners nor liver disease had onset of nausea and vomiting multiple times last night with subsequent hematemesis. She is feeling generally weak this morning. Continues with nausea. Denies diarrhea nor general abdominal pain. She does have history of renal insufficiency. She does follow with the tank tender. Again no history of liver problems. I talked with Dr. Khan who is on-call for surgery and said he could scope her tomorrow for further evaluation. He subsequently called back and said he was able to review some of her chart from apparently another facility and she had had a scope done EGD without any ulcers or tumors or acute abnormalities done in October of this year. He therefore did not feel the patient needed defective scoping unless persistent bleeding or other problems. Talked with Dr. Sal who is on for hospitalist. He is concerned about her elevated creatinine above normal. He asked that we repeat the blood test after we have been given some IV fluids. A repeat creatinine showing some slight improvement from 4.5 to now 4.3. She does seem likely under hydrated. Her hemoglobin was also low at 6.7 with baseline being 8 or 9 recently. She will be given a unit of blood. She subsequently has no further vomiting after some IV fluids and medications here. Her vomiting initially in the ER did show dark blood hematemesis of 3 to 5 mL type volumes. The patient appears more stable with regard to the degree of vomiting. Her vitals have remained good without any hypotension. I am concerned however with her degree of anemia and the vomiting of blood along with the renal insufficiency which makes fluid management more crucial to be watched closely. I talked with the hospitalist who said he would come down and see the patient. The patient was seen by in the ER who is concerned about her renal insufficiency. He contacted Dr. TRES Mcginnis her tank tender who states her nausea could relate to uremia. I am not sure if the scenario of vomiting and diarrhea was conveyed necessarily as this sounds more like a acute enteritis. However the hospitalist concern of potentially needing dialysis with this level of uremia negated admission to our hospital. No other hospitals have beds at this time. The patient is on waiting list at [facility] I believe and [facility] is considering it tomorrow. At this point the patient remains in the ER with gentle hydration. Her vitals remained good. She did develop a peroxisomal of atrial fibrillation was given diltiazem IV with improvement in her heart rate to below 100. I think we would need to look at her usual medications including some diuretics to help with the renal clearance perhaps. I ordered repeat chemistry and blood count at 11 PM and 6 AM as the patient looks like she will be here into tomorrow. - Critical Care Time(min): 65 Time Includes: Direct patient care, Reassess patient, Document care, Coordinate care, Medical consult Data interpretation: Labs, See progress note Procedures excluded from critical care time: EKG Departure - Departure Disposition: 02 Transfer Acute Care Hosp Clinical Impression: Nausea and vomiting in adult, Paroxysmal atrial flutter, Acute on chronic renal insufficiency Hematemesis Qualifiers: Nausea presence: with nausea Qualified Code(s): K92.0 - Hematemesis Anemia Qualifiers: Anemia type: unspecified type Qualified Code(s): D64.9 - Anemia, unspecified Condition: Stable
[2022-01-10] MEDS ORDERED: FAMOTIDINE 20 MG/2 ML VIAL IVP STA (10:08)
[2022-01-10] MEDS ORDERED: DROPERIDOL 5 MG/2 ML VIAL IVP STA ×2 (10:08→11:48)
[2022-01-10 11:05] LABS: BASOPHILS # (AUTO) 0.1 10^3/uL (0.0-0.1); BASOPHILS % (AUTO) 1.3 %; EOSINOPHILS # (AUTO) 0.1 10^3/uL (0.0-0.7); EOSINOPHILS % (AUTO) 0.8 %; HCT - HEMATOCRIT 20.8 % (37.0-47.0); LYMPHOCYTES # (AUTO) 0.7 10^3/uL (1.5-3.5); LYMPHOCYTES % (AUTO) 11.1 %; MEAN CORPUSCULAR HEMOGLOBIN 29.5 pg (27.0-31.0); MEAN CORPUSCULAR HGB CONC 32.2 g/dL (32.0-36.0); MEAN CORPUSCULAR VOLUME 91.6 fL (81.0-99.0); MEAN PLATELET VOLUME 11.4 fL (7.9-10.8); MONOCYTES # (AUTO) 0.4 10^3/uL (0.0-1.0); MONOCYTES % (AUTO) 5.5 %; NEUTROPHILS # (AUTO) 5.2 10^3/uL (1.5-6.6); NEUTROPHILS % (AUTO) 80.8 %; PLT - PLATELET COUNT 187 10^3/uL (130-450); RED BLOOD COUNT 2.27 10^6/uL (4.20-5.40); RED CELL DISTRIBUTION WIDTH 14.3 % (12.0-15.0); WHITE BLOOD COUNT 6.4 x10^3/uL (4.8-10.8)
[2022-01-10 11:09] LABS: HGB - HEMOGLOBIN 6.7 g/dL (12.0-16.0)
[2022-01-10 11:15] LABS: INR 1.4 (0.8-1.2); PT - PROTHROMBIN TIME 15.6 secs (9.9-12.6)
[2022-01-10 11:22] LABS: PARTIAL THROMBOPLASTIN TIME 19.6 secs (24.9-33.3)
[2022-01-10] MEDS ORDERED: PANTOPRAZOLE 40 MG VIAL IVP STA (11:31)
[2022-01-10 12:19] LABS: ALBUMIN 3.5 g/dL (3.2-5.5); ALBUMIN/GLOBULIN RATIO 1.3 (1.0-2.2); ALKALINE PHOSPHATASE 60 IU/L (42-121); ALT ALANINE AMINOTRANSFERASE < 10 IU/L (10-60); AST ASPARTATE AMINOTRANSFERASE 17 IU/L (10-42); BILIRUBIN,TOTAL 0.7 mg/dL (0.2-1.0); CALCIUM 8.7 mg/dL (8.5-10.3); CARBON DIOXIDE - CO2 16 mmol/L (21-32); CHLORIDE 103 mmol/L (101-111); CREATININE 4.5 mg/dL (0.4-1.0); GFR - MDRD 9 (>89); GLUCOSE 131 mg/dL (70-100); LIPASE 61 U/L (22-51); POTASSIUM 5.1 mmol/L (3.5-5.0); SODIUM 134 mmol/L (135-145); TOTAL PROTEIN 6.1 g/dL (6.7-8.2)
[2022-01-10 12:20] LABS: BUN - BLOOD UREA NITROGEN 124 mg/dL (6-20)
--- NOTE | 2022-01-10 12:51 | CT Report ---
PROCEDURE: Abdomen/Pelvis WO INDICATIONS: vomiting, upper abd pain TECHNIQUE: Noncontrast 5 mm thick sections acquired from the diaphragms to the symphysis. 5 mm coronal and sagi ttal reformats were then performed. For radiation dose reduction, the following was used: automated exposure control, adjustment of mA and/or kV according to patient size. COMPARISON: Retroperitoneal ultrasound 09/04/2021. CT chest 09/05/2013.. FINDINGS: Image quality: Excellent. ABDOMEN: Lung bases: Trace pleural effusions. Heart size is prominent. Solid organs: Liver and spleen are normal in size. Gallbladder is not significantly distended. Gall stone measuring 0.6 cm. Pancreas is normal in contours. No adrenal nodules. Atrophy of the right ki dney. Mild atrophy of the left kidney. No definite kidney stones. Suspect left renal vascular calcifi cations. Peritoneum and bowel: Unenhanced bowel loops demonstrate normal wall thickness and caliber. Divertic ulosis. No free fluid or air. Nodes and vessels: No retroperitoneal or mesenteric adenopathy by size criteria. Abdominal aortic an eurysm measuring 5.3 x 5.1 cm, (01/28). (The aneurysm was measured 5.2 x 5 cm on abdominal ultrasound 09/04/2021). This aneurysm was not present on the CT from 2012. There is moderate calcified atheroscle rotic plaque. Miscellaneous: No ventral hernias. PELVIS: Genitourinary: Bladder is only partially distended. No kidney stones.. Uterus is enlarged. Suspect c alcified fibroids. Miscellaneous: No inguinal hernias or adenopathy. Bones: No suspicious bony lesions. No vertebral body compression fractures. IMPRESSION: 1. No small bowel obstruction. No free fluid. 2. Abdominal aortic aneurysm measuring 5.3 cm. This appears slightly increased compared to ultrasound August 2021. This aneurysm was not present in 2012. Recommend vascular surgery or interventional r adiology consultation. 3. Diverticulosis. Cholelithiasis. Renal atrophy. 4. Enlarged fibroid uterus. Consider further evaluation with pelvic ultrasound. Reviewed by: Harjit Jimenez MD on 01/10/2022 11:50 AM MILLER Approved by: Harjit Jimenez MD on 01/10/2022 11:50 AM MILLER Station ID: [id number]
[2022-01-10 13:09] LABS: CALCIUM 8.4 mg/dL (8.5-10.3); CREATININE 4.3 mg/dL (0.4-1.0)
--- NOTE | 2022-01-10 14:59 | CONSULTATION NOTE ---
Referring Provider Consult Date: 01/10/22 Chief Complaint - Chief Complaint Chief Complaint: nausea and vomiting History of Present Illness - History Obtained From Records Reviewed: yes History obtained from: chart review Exam Limitations: lethargic/ asleep - History of Present Illness HPI Comment/Other: Seen in ED with nausea and vomiting and what appeared to be coffee ground emesis. Found to be more anemic than her baseline. By chart review she has history hepatitis, end stage kidney disease, coronary artery disease with history stents and at times on going angina. She has history of gi bleed a few months ago with negative work up including EGD, colonoscopy, pill camera. History - Past Medical History Cardiovascular: reports: Hypertension, High cholesterol, Atrial fibrillation, Other Respiratory: reports: Sleep apnea Neuro: reports: None Endocrine/Autoimmune: reports: None GI: reports: GI bleed ONLINE CONTENT COORDINATOR: reports: None : reports: Renal insuffiency, Other HEENT: reports: None Psych: reports: None Musculoskeletal: reports: None Derm: reports: None MRSA Hx?: No - Past Surgical History General: reports: Colonoscopy Ortho: reports: Rotator cuff repair Cardiovascular: reports: Coronary stent HEENT: reports: Cataracts - POLST Patient has POLST: No Meds/Allgy - Home Medications Home Medications: Ambulatory Orders Medication Instructions Recorded Confirmed Fluticasone Propionate [Flonase 1 spray NS BID PRN 06/04/15 01/10/22 Allergy Relief] Nitroglycerin [Nitrostat] 0.4 mg SL Q5MIN PRN 06/04/15 01/10/22 Cholecalciferol (Vitamin D3) 1,000 unit PO DAILY 04/06/16 01/10/22 [Vitamin D3] Aspirin [Aspirin EC] 81 mg PO QPM 08/06/16 01/10/22 Acetaminophen [Tylenol] 650 mg PO Q4HR PRN #0 tablet 08/07/16 03/21/20 Atorvastatin [Lipitor] 10 mg PO TIDWM 09/16/16 01/10/22 carvediloL [Coreg] 25 mg PO BID 07/28/18 01/10/22 dilTIAZem HCl [Diltiazem 24Hr ER] 120 mg ORAL DAILY 07/28/18 01/10/22 hydrALAZINE [Apresoline] 25 mg PO PRN PRN 07/28/18 01/10/22 Cetirizine [ZyrTEC] 10 mg PO DAILY 09/25/18 01/10/22 Ferrous Sulfate 325 mg PO DAILY 09/25/18 03/21/20 Spironolactone [Aldactone] 25 mg PO DAILY 01/10/22 01/10/22 Torsemide 20 mg PO DAILY 01/10/22 01/10/22 cloNIDine 0.1 MG PATCH 1 each TOP Q7D 01/10/22 01/10/22 [Erafvich-Nqp-3] - Allergies Allergies/Adverse Reactions: Allergies Allergy/AdvReac Type Severity Reaction Status Date / Time rivaroxaban [From Xarelto] Allergy Unknown Verified 01/10/22 10:04 amlodipine AdvReac Edema Verified 01/10/22 10:04 losartan AdvReac Dizziness Verified 01/10/22 10:04 oxycodone AdvReac Nausea Verified 01/10/22 10:04 Review of Systems - Other Findings Other Findings: 10 pt ros as above otherwise unremarkable. by chart review progressive fatigue, end stage renal disease, significant coronary artery disease, Exam - Vital Signs Reviewed Vital Signs: Yes Vital Signs: Vital Signs x48h Temp Pulse Resp BP Pulse Ox 01/10/22 14:07 37.5 C 78 16 166/59 H 01/10/22 14:06 37.5 C 77 16 166/59 H 100 01/10/22 13:09 82 16 100 01/10/22 12:57 37.3 C 79 20 186/63 H 01/10/22 12:47 37.2 C 78 18 188/66 H 01/10/22 12:41 75 16 191/73 H 100 01/10/22 11:30 82 24 238/86 H 100 01/10/22 11:14 78 18 183/71 H 100 01/10/22 10:04 36.5 C 76 14 122/65 96 - Physical Exam General Appearance: positive: No acute distress, Lethargic Respiratory: positive: No respiratory distress Abdomen: positive: No distention Conclusion/Plan - Problem List (1) Nausea and vomiting in adult Conclusion/Plan: she is not a candidate for a procedure at [facility]. she recently had an EGD, colonoscopy, and pill camera which was unremarkable. In addition with her significant renal failure and cardiac history I personally do not believe she is a candidate for hospital admission at [facility] and should be admitted to a hospital that has teacher education director, brake specialist, dialysis. - Lab Results Fish Bones: 01/10/22 10:55 01/10/22 12:39
[2022-01-10 16:00] LABS: HCT - HEMATOCRIT 25.4 % (37.0-47.0); HGB - HEMOGLOBIN 8.5 g/dL (12.0-16.0)
[2022-01-10] MEDS ORDERED: MAG HYDROX/AL HYDROX/SIMETH 30 ML UDC PO STA (16:17)
[2022-01-10] MEDS ORDERED: diltiaZEM INJ 5 MG/ML VIAL IVP STA ×2 (17:31→19:15)
[2022-01-10] MEDS ORDERED: FUROSEMIDE 20 MG/2 ML VIAL IVP STA (19:32)
[2022-01-10] MEDS: PANTOPRAZOLE 40 MG VIAL IVP SCH (20:53)
[2022-01-10] MEDS: carvediloL 12.5 MG TABLET PO SCH (20:53)
[2022-01-10] MEDS ORDERED: diltiaZEM 30 MG TABLET PO STA (22:13)
[2022-01-10 22:56] LABS: BASOPHILS % (AUTO) 0.3 %; EOSINOPHILS # (AUTO) 0.3 10^3/uL (0.0-0.7); EOSINOPHILS % (AUTO) 2.5 %; HCT - HEMATOCRIT 22.6 % (37.0-47.0); HGB - HEMOGLOBIN 7.5 g/dL (12.0-16.0); LYMPHOCYTES # (AUTO) 0.8 10^3/uL (1.5-3.5); MEAN CORPUSCULAR HEMOGLOBIN 29.6 pg (27.0-31.0); MEAN CORPUSCULAR HGB CONC 33.2 g/dL (32.0-36.0); MEAN CORPUSCULAR VOLUME 89.3 fL (81.0-99.0); MEAN PLATELET VOLUME 11.1 fL (7.9-10.8); MONOCYTES # (AUTO) 0.8 10^3/uL (0.0-1.0); MONOCYTES % (AUTO) 6.3 %; NEUTROPHILS # (AUTO) 10.7 10^3/uL (1.5-6.6); NEUTROPHILS % (AUTO) 84.3 %; PLT - PLATELET COUNT 141 10^3/uL (130-450); RED BLOOD COUNT 2.53 10^6/uL (4.20-5.40); RED CELL DISTRIBUTION WIDTH 14.6 % (12.0-15.0); WHITE BLOOD COUNT 12.8 x10^3/uL (4.8-10.8)
[2022-01-10 23:17] LABS: CALCIUM 8.2 mg/dL (8.5-10.3); CREATININE 4.2 mg/dL (0.4-1.0); POTASSIUM 4.3 mmol/L (3.5-5.0)
[2022-01-11 06:02] LABS: BASOPHILS # (AUTO) 0.1 10^3/uL (0.0-0.1); BASOPHILS % (AUTO) 0.7 %; EOSINOPHILS # (AUTO) 0.1 10^3/uL (0.0-0.7); EOSINOPHILS % (AUTO) 0.5 %; LYMPHOCYTES # (AUTO) 1.2 10^3/uL (1.5-3.5); LYMPHOCYTES % (AUTO) 11.2 %; MEAN CORPUSCULAR HEMOGLOBIN 30.2 pg (27.0-31.0); MEAN CORPUSCULAR HGB CONC 34.2 g/dL (32.0-36.0); MEAN CORPUSCULAR VOLUME 88.4 fL (81.0-99.0); MEAN PLATELET VOLUME 10.8 fL (7.9-10.8); MONOCYTES % (AUTO) 9.9 %; NEUTROPHILS # (AUTO) 8.1 10^3/uL (1.5-6.6); NEUTROPHILS % (AUTO) 77.3 %; PLT - PLATELET COUNT 136 10^3/uL (130-450); RED BLOOD COUNT 2.25 10^6/uL (4.20-5.40); RED CELL DISTRIBUTION WIDTH 14.6 % (12.0-15.0); WHITE BLOOD COUNT 10.5 x10^3/uL (4.8-10.8)
[2022-01-11 06:05] LABS: HCT - HEMATOCRIT 19.9 % (37.0-47.0); HGB - HEMOGLOBIN 6.8 g/dL (12.0-16.0)
--- NOTE | 2022-01-11 06:10 | ED Physician Documentation ---
ED Addendum - Addendum Addendum: 01/11/22 06:08 AM Labs with Hgb 6.8. Patient has had no more bleeding episodes During my shift. Most recent vitals are stable. I did discuss with the patient regarding transfusion of another unit of blood which she is agreeable to. Patient is awaiting transfer to [place] where her flying instructor is. Patient states she has an appointment with her vascular surgeon tomorrow to get the approval to use her fistula and has an appointment with her flying instructor this .
[2022-01-11 06:24] LABS: ALBUMIN 3.3 g/dL (3.2-5.5); ALBUMIN/GLOBULIN RATIO 1.7 (1.0-2.2); ALKALINE PHOSPHATASE 44 IU/L (42-121); ALT ALANINE AMINOTRANSFERASE < 10 IU/L (10-60); AST ASPARTATE AMINOTRANSFERASE 13 IU/L (10-42); CALCIUM 8.3 mg/dL (8.5-10.3); CARBON DIOXIDE - CO2 14 mmol/L (21-32); CHLORIDE 106 mmol/L (101-111); CREATININE 4.1 mg/dL (0.4-1.0); GFR - MDRD 10 (>89); GLUCOSE 85 mg/dL (70-100); LIPASE 51 U/L (22-51); POTASSIUM 4.1 mmol/L (3.5-5.0); SODIUM 134 mmol/L (135-145); TOTAL PROTEIN 5.3 g/dL (6.7-8.2)
[2022-01-11 06:30] LABS: BUN - BLOOD UREA NITROGEN 120 mg/dL (6-20)
[2022-01-11] MEDS ORDERED: TORSEMIDE 20 MG TABLET PO SCH (09:00)
[2022-01-11] MEDS ORDERED: diltiaZEM CD 120 MG CAPSULE PO SCH (09:00)
[2022-01-11] MEDS: PANTOPRAZOLE 40 MG VIAL IVP SCH (10:24)
[2022-01-11] MEDS: carvediloL 12.5 MG TABLET PO SCH (10:28)
[2022-01-11 12:16] LABS: BASOPHILS # (AUTO) 0.1 10^3/uL (0.0-0.1); BASOPHILS % (AUTO) 0.8 %; EOSINOPHILS # (AUTO) 0.1 10^3/uL (0.0-0.7); EOSINOPHILS % (AUTO) 1.3 %; HCT - HEMATOCRIT 24.8 % (37.0-47.0); HGB - HEMOGLOBIN 8.4 g/dL (12.0-16.0); LYMPHOCYTES % (AUTO) 9.3 %; MEAN CORPUSCULAR HEMOGLOBIN 29.5 pg (27.0-31.0); MEAN CORPUSCULAR HGB CONC 33.9 g/dL (32.0-36.0); MONOCYTES # (AUTO) 0.9 10^3/uL (0.0-1.0); MONOCYTES % (AUTO) 8.3 %; NEUTROPHILS # (AUTO) 8.2 10^3/uL (1.5-6.6); NEUTROPHILS % (AUTO) 79.9 %; PLT - PLATELET COUNT 136 10^3/uL (130-450); RED BLOOD COUNT 2.85 10^6/uL (4.20-5.40); WHITE BLOOD COUNT 10.3 x10^3/uL (4.8-10.8)
[2022-01-11 12:41] LABS: CALCIUM 8.6 mg/dL (8.5-10.3); CREATININE 3.9 mg/dL (0.4-1.0); POTASSIUM 4.2 mmol/L (3.5-5.0)
[2022-01-11 14:25] VITALS: BP 160/70
--- NOTE | 2022-01-11 14:27 | ED Physician Documentation ---
ED Addendum - Addendum Addendum: 01/11/22 14:22 The patient was signed out to me by Dr. Antonio at change of shift, pending transfer for upper GI bleed and chronic renal failure. The patient had been seen yesterday for coffee-ground emesis and had been found to have a hemoglobin of 6.7 after which she was transfused with increase in her hemoglobin to 8.5 after 1 unit. The patient's hemoglobin trended down overnight and was back to below 7 prior to onset of my shift, and so a transfusion of another unit was ordered and was in process at the time of signout. The patient remained hemodynamically stable throughout her stay in the emergency department. She had not had any further vomiting overnight and reported feeling well. The patient was without tachycardia and had a normal blood pressure. She was receiving Protonix scheduled doses in the ED. The case had already been discussed with our surgeon here as well as Consultants at other hospitals and patient was awaiting transfer, based on the need for GI and the imminent initiation of her dialysis. Repeat hemoglobin at 1200 was 8.5. Her renal labs were stable and actually improved over the course of her stay here with IV fluids. The patient stated that she wished to leave the emergency department, as she feels better, has not been vomiting, and has appointments coming up over the next couple of days with her vascular surgeon and tube building machine operator. I discussed at length with the patient the risks of leaving, and that we have not determine whether her hemoglobin is stabilized and the patient would most likely benefit from inpatient management. However, the patient insisted she would like to leave. She states she can take her blood pressure at home and is willing to return immediately if she becomes lightheaded, dyspneic, or begins having coffee-ground or frankly bloody emesis again. The patient has signed AMA paperwork. I have given her prescription for Protonix and we have discussed the usual indications for return. The patient understands she may return to the emergency department at any time. Final impression 1. Upper GI bleed 2. Severe anemia 3. Chronic renal Failure Disposition: Discharged home AGAINST MEDICAL ADVICE.
== END 2022-01-11 14:30 | disposition left against medical advice (07) ==
LOC: EDUNIT# → ED 09:56
DX: K92.2 Gastrointestinal hemorrhage, unspecified (principal); D64.9 Anemia, unspecified; I12.0 Hypertensive chronic kidney disease with stage 5 chronic kidney disease or end stage renal disease; N18.6 End stage renal disease; I25.10 Atherosclerotic heart disease of native coronary artery without angina pectoris
CPT/HCPCS: 36415; 36430; 74176; 80048; 80053; 82272; 83690; 84484; 85014; 85018; 85025; 85610; 85730; 86850; 86900; 86901; 86920; 93005; 96361; 96374; 96375; 96376; 99285; 99291; A9270; P9016

== ENCOUNTER 2022-01-14 13:51 | Outpatient (CLI) | payer MEDICARE, OTHER ==
[2022-01-14 14:21] LABS: BASOPHILS # (AUTO) 0.1 10^3/uL (0.0-0.1); BASOPHILS % (AUTO) 1.3 %; EOSINOPHILS # (AUTO) 0.2 10^3/uL (0.0-0.7); EOSINOPHILS % (AUTO) 3.5 %; HCT - HEMATOCRIT 26.4 % (37.0-47.0); HGB - HEMOGLOBIN 8.7 g/dL (12.0-16.0); LYMPHOCYTES # (AUTO) 0.5 10^3/uL (1.5-3.5); LYMPHOCYTES % (AUTO) 8.9 %; MEAN CORPUSCULAR HEMOGLOBIN 29.3 pg (27.0-31.0); MEAN CORPUSCULAR VOLUME 88.9 fL (81.0-99.0); MEAN PLATELET VOLUME 10.2 fL (7.9-10.8); MONOCYTES # (AUTO) 0.5 10^3/uL (0.0-1.0); MONOCYTES % (AUTO) 9.9 %; NEUTROPHILS # (AUTO) 4.2 10^3/uL (1.5-6.6); PLT - PLATELET COUNT 193 10^3/uL (130-450); RED BLOOD COUNT 2.97 10^6/uL (4.20-5.40); RED CELL DISTRIBUTION WIDTH 16.3 % (12.0-15.0); WHITE BLOOD COUNT 5.5 x10^3/uL (4.8-10.8)
--- NOTE | 2022-01-14 14:23 | XRAY Report ---
PROCEDURE: Chest 2 View X-Ray INDICATIONS: DYSPNEA TECHNIQUE: 2 view(s) of the chest. COMPARISON: February 16, 2019. FINDINGS: SUPPORT DEVICES: None. LUNGS/PLEURA: No focal consolidation, pleural effusion or space-occupying pneumothorax. MEDIASTINUM: Enlargement of the cardiac silhouette. BONES/SOFT TISSUES: No acute abnormality. IMPRESSION: 1.No acute cardiopulmonary abnormality. Reviewed by: Yaniv Nash MD on 01/14/2022 2:21 PM PDT Approved by: Yaniv Nash MD on 01/14/2022 2:21 PM PDT Station ID: [id number]
[2022-01-14 14:35] LABS: CREATININE 4.5 mg/dL (0.4-1.0); POTASSIUM 3.9 mmol/L (3.5-5.0)
[2022-01-15 08:30] LABS: HEPATITIS B SURFACE ANTIGEN NON-REACTIVE (NON-REACTIVE); HEPATITIS C ANTIBODY NON-REACTIVE (NON-REACTIVE)
== END 2022-01-14 13:52 | disposition home or self-care (01) ==
LOC: DI 13:51
PROVIDERS: ATTEND Internal Medicine Nephrology
DX: R06.00 Dyspnea, unspecified (principal); N05.9 Unspecified nephritic syndrome with unspecified morphologic changes; D70.9 Neutropenia, unspecified; D63.1 Anemia in chronic kidney disease; B19.10 Unspecified viral hepatitis B without hepatic coma; B17.10 Acute hepatitis C without hepatic coma
CPT/HCPCS: 36415; 80048; 85025; 86317; 86704; 86803; 87340

== ENCOUNTER 2022-01-16 00:50 | Outpatient (CLI) | payer MEDICARE, OTHER | END 2022-01-16 00:51 | disposition short-term general hospital (02) | LOC: EMS 00:50 | DX: I95.9 Hypotension, unspecified (principal); R42 Dizziness and giddiness; R53.1 Weakness; R00.1 Bradycardia, unspecified | CPT/HCPCS: A0425; A0427 ==

== ENCOUNTER 2022-02-22 08:00 | Outpatient (CLI) | payer MEDICARE, OTHER | END 2022-02-22 08:01 | disposition home or self-care (01) | LOC: LAB.N 08:00 | PROVIDERS: ATTEND Family Medicine | DX: N39.0 Urinary tract infection, site not specified (principal) | CPT/HCPCS: 87077; 87086; 87181 ==

== ENCOUNTER 2022-03-17 09:33 | Outpatient (CLI) | payer MEDICARE, OTHER ==
[2022-03-17 10:15] VITALS: BP 121/71
--- NOTE | 2022-03-17 10:15 | SLEEP CARE CONSULTATION ---
Information from patient questionnaire entered by Gregorio Sanz MA. I have reviewed and concur with the information entered by Gregorio Sanz MA. This document represents the service I personally performed and the decisions made by , Savannah Berrios ARNP. History of Present Illness Service Date and Time: 03/17/2022 0933 Previous diagnosis: Severe, Obstructive Sleep Apnea-Hypopnea Syndrome AHI: 55.4 (in 2015) Reason for follow up: annual (LAST SEEN 03/06/21, JOSIAH, ) Equipment type: CPAP Equipment obtained from: Other ([facility];) Mask style: Nasal Mask brand: Respironics Backup mask available: Yes (old mask) Last cushion change: 2 weeks Prior sleep studies: Yes Year and Where: 2015 [email or web address] Type of Sleep Study: Polysomnography HPI additional information: HEATHER GALAVIZ was diagnosed to have severe, AHI 55.4, obstructive sleep apnea- hypopnea syndrome and returned today for CPAP therapy annual follow-up. Sleep Study - Results Type of Sleep Study: Polysomnography Prior sleep studies: Yes Year and Where: 2015 - [employer] [facility] CPAP Compliance Data - Data Reviewed with Patient Average duration of nightly device use: 7 HOURS 40 MINUTES Compliance rate %: 90 (180 days) Current pressure setting (cmH2O): 10 Humidity settin Heated hose settin Average residual AHI: 3.8 Average large leak: 2 MINUTES 20 SECONDS Subjective Missed days of use due to: reports: illness (DUE TO ILLNESS COULD NOT USE THE CPAP, ) Patient concerns: reports: epistaxis (not very often), other (SHE GETS A BLOODY NOSE, ). denies: aerophagia, mask discomfort, air blowing in eyes, mask leak noise, condensation in mask/hose, nasal congestion, dry mouth, nose, throat Observed to snore while using device: No Current pressure setting perceived as: too low On therapy, patient: reports: sleeping better, awakening more refreshed, being more awake and alert during the day, more rested overall. denies: drowsiness while driving Initial Allen Sleepiness Scale score: 16 (in 2016) Current Allen Sleepiness Scale score: 7 (02/2022) Allergies and Home Medications Home medication list reviewed: Yes Allergy and home medication list: Allergies rivaroxaban [From Xarelto] Allergy (Verified 01/10/22 10:04) Unknown amlodipine Adverse Reaction (Verified 01/10/22 10:04) Edema losartan Adverse Reaction (Verified 01/10/22 10:04) Dizziness Will affect my kidneys so Im not supposed to take it. oxycodone Adverse Reaction (Verified 01/10/22 10:04) Nausea Medications: Acyclovir 200 mg 2x day Aspirin 81 mg daily Atorvastatin 20 mg 3 x week Cetrizine 10 mg daily Diltiazem 120 mg daily Metoprolol 25 mg daily Pantoprazole 40 mg daily Torsemide 20 mg daily Ticagrelor Review of Systems Review of systems same as previous: No ([employer]ACE [employer]ER, 4 STENTS AND ON DIALYSIS, END OF DECEMBER, ) Physical Exam Vital signs obtained and entered by: UGO GOMEZ Blood Pressure: 121/71 (PULSE 68, RESP 16, LEFT) Cuff size: wrist Heart Rate: 67 O2 Saturation: 98 (PAPER MASK) Height: 5 ft 2 in Weight: 108 lb (WITH CLOTHES) Weight change since last visit: PT TRYING TO GAIN Body Mass Index: 19.7 BMI Classification: Healthy weight Impression and Plan 1. Obstructive Sleep Apnea-Hypopnea Syndrome, severe, with good treatment comp liance and good apnea control. On CPAP therapy, the patient has better sleep quality and is more rested overall. Patient has a new Dreamstation 2 that was replaced in August by [employer]. Patient feels that her pressure may be a little low with a residual AHI of 3.8. The patients pressure will be changed to CPAP 11.0 cmH20 for patient comfort. Patient advised to contact me if pressure change is uncomfortable so that it can be adjusted. Goals for apnea control discussed. Patient voiced understanding and agreement with plan. Patient's apnea severity and rationale for treatment to reduce apnea, improve sleep quality and reduce cardiovascular and cerebrovascular events was reviewed. I also reviewed the benefit of consistent device use of CPAP for hypertension, cardiac disease and arrhythmia. * Change CPAP pressure to 11.0 cmH2O * Notify me if snoring with mask or feeling that the pressure is too much or too little * Maintain a healthy weight * Call this office if any problems using CPAP * Return for follow up in 1 year, or sooner if concerns arise Counseling Topics: Weight control Visit Type: In Office Time Spent with Patient (minutes): 24 Provider Statement: I spent 100% of the Face to Face Visit with the patient with greater than 50% spent counseling the patient and coordination of care.
== END 2022-03-17 09:34 | disposition home or self-care (01) ==
LOC: SC 09:33
PROVIDERS: ATTEND Nurse Practitioner Family
DX: G47.33 Obstructive sleep apnea (adult) (pediatric) (principal)
CPT/HCPCS: 99213; G0463; 99212

== ENCOUNTER 2022-07-18 22:57 | Outpatient (CLI) | payer MEDICARE, OTHER | END 2022-07-18 22:58 | disposition critical access hospital (66) | LOC: EMS 22:57 | DX: K92.0 Hematemesis (principal); Z79.01 Long term (current) use of anticoagulants | CPT/HCPCS: A0425; A0429 ==

== ENCOUNTER 2022-07-18 23:13 | Emergency (ER) | payer MEDICARE, OTHER ==
[2022-07-18 23:46] LABS: BASOPHILS # (AUTO) 0.1 10^3/uL (0.0-0.1); BASOPHILS % (AUTO) 1.2 %; EOSINOPHILS # (AUTO) 0.3 10^3/uL (0.0-0.7); EOSINOPHILS % (AUTO) 3.2 %; HCT - HEMATOCRIT 26.9 % (37.0-47.0); HGB - HEMOGLOBIN 8.7 g/dL (12.0-16.0); LYMPHOCYTES # (AUTO) 1.5 10^3/uL (1.5-3.5); LYMPHOCYTES % (AUTO) 16.1 %; MEAN CORPUSCULAR HEMOGLOBIN 34.1 pg (27.0-31.0); MEAN CORPUSCULAR HGB CONC 32.3 g/dL (32.0-36.0); MEAN CORPUSCULAR VOLUME 105.5 fL (81.0-99.0); MEAN PLATELET VOLUME 9.7 fL (7.9-10.8); MONOCYTES # (AUTO) 0.7 10^3/uL (0.0-1.0); MONOCYTES % (AUTO) 7.3 %; NEUTROPHILS # (AUTO) 6.8 10^3/uL (1.5-6.6); NEUTROPHILS % (AUTO) 71.7 %; PLT - PLATELET COUNT 313 10^3/uL (130-450); RED BLOOD COUNT 2.55 10^6/uL (4.20-5.40); RED CELL DISTRIBUTION WIDTH 16.6 % (12.0-15.0); WHITE BLOOD COUNT 9.5 x10^3/uL (4.8-10.8)
[2022-07-18 23:50] LABS: INR 1.1 (0.8-1.2); PT - PROTHROMBIN TIME 12.5 secs (9.9-12.6)
[2022-07-18 23:55] LABS: ALBUMIN 3.6 g/dL (3.2-5.5); ALBUMIN/GLOBULIN RATIO 1.1 (1.0-2.2); ALKALINE PHOSPHATASE 90 IU/L (42-121); ALT ALANINE AMINOTRANSFERASE < 10 IU/L (10-60); AST ASPARTATE AMINOTRANSFERASE 17 IU/L (10-42); BILIRUBIN,TOTAL 0.5 mg/dL (0.2-1.0); BUN - BLOOD UREA NITROGEN 74 mg/dL (6-20); CALCIUM 8.7 mg/dL (8.5-10.3); CARBON DIOXIDE - CO2 26 mmol/L (21-32); CHLORIDE 96 mmol/L (101-111); CREATININE 5.1 mg/dL (0.4-1.0); GFR - MDRD 8 (>89); GLUCOSE 129 mg/dL (70-100); LIPASE 64 U/L (22-51); SODIUM 135 mmol/L (135-145); TOTAL PROTEIN 6.8 g/dL (6.7-8.2)
[2022-07-18 23:57] LABS: PARTIAL THROMBOPLASTIN TIME 28.2 secs (24.9-33.3)
--- NOTE | 2022-07-19 00:16 | ED Physician Documentation ---
PD HPI GI BLEED - Stated complaint Stated Complaint: VOMITING BLOOD - Chief complaint Chief Complaint: Abd Pain - History obtained from History obtained from: Patient, EMS - History of Present Illness Timing - onset: How many hours ago (6-7), Today Timing - duration: Hours (6-7) Timing - details: Gradual onset (Onset of nausea about 4 PM in the afternoon and then started vomiting couple of hours later and noted bright red blood after several episodes of vomiting. Emesis continued intermittently. Some blood still. Feeling generally weak.) Associated symptoms: Vomiting, Hematemesis Contributing factors: Anticoagulated. No: Sick contact, Bad food, Travel Improved by: No: Vomiting Worsened by: Eating Similar symptoms before: Has not had sx before Recently seen: Clinic Review of Systems Constitutional: reports: Myalgias. denies: Fever, Chills Nose: denies: Rhinorrhea / runny nose, Congestion Throat: denies: Sore throat Cardiac: reports: Palpitations (chronic atrial fib). denies: Chest pain / pressure, Pedal edema Respiratory: reports: Dyspnea. denies: Cough, Wheezing GI: reports: Nausea, Vomiting, Hematemesis. denies: Abdominal Pain, Bloody / black stool Neurologic: reports: Generalized weakness. denies: Near syncope, Altered mental status Endocrine: reports: Easy bruising / bleeding PD PAST MEDICAL HISTORY - Past Medical History Past Medical History: Yes Cardiovascular: Hypertension, High cholesterol, Coronary artery disease, Atrial fibrillation (is getting Watchman procedure at [facility] next week. ), Other Respiratory: Sleep apnea Neuro: None Endocrine/Autoimmune: None GI: GI bleed [employer]: None : Renal insuffiency, Other HEENT: None Psych: None Musculoskeletal: None Derm: None - Past Surgical History Past Surgical History: Yes General: Colonoscopy Ortho: Rotator cuff repair Cardiovascular: Coronary stent HEENT: Cataracts - Present Medications Home Medications: Ambulatory Orders Medication Instructions Recorded Confirmed Fluticasone Propionate [Flonase 1 spray NS BID PRN 06/04/15 01/10/22 Allergy Relief] Nitroglycerin [Nitrostat] 0.4 mg SL Q5MIN PRN 06/04/15 01/10/22 Cholecalciferol (Vitamin D3) 1,000 unit PO DAILY 04/06/16 01/10/22 [Vitamin D3] Aspirin [Aspirin EC] 81 mg PO QPM 08/06/16 07/19/22 Acetaminophen [Tylenol] 650 mg PO Q4HR PRN #0 tablet 08/07/16 03/21/20 Atorvastatin [Lipitor] 20 mg PO 09/16/16 01/10/22 Cetirizine [ZyrTEC] 10 mg PO DAILY 09/25/18 01/10/22 Torsemide 40 mg PO DAILY 01/10/22 07/19/22 cloNIDine 0.1 MG PATCH 0.2 mg TOP Q7D 01/10/22 07/19/22 [[id number]-6] Pantoprazole [Protonix] 40 mg PO BID #60 tablet 01/11/22 07/19/22 Calcium Carbonate [Tums (Calcium 500 mg PO DAILY 07/19/22 07/19/22 Carbonate 500mg)] Cetirizine [ZyrTEC] 10 mg PO DAILY 07/19/22 07/19/22 Ergocalciferol (Vitamin D2) 1 cap PO DAILY 07/19/22 07/19/22 [Vitamin D2] Lisinopril [Zestril] 20 mg PO DAILY 07/19/22 07/19/22 Metoprolol Succinate [Toprol Xl] 50 mg PO DAILY 07/19/22 07/19/22 Ticagrelor [Brilinta] 90 mg PO DAILY 07/19/22 07/19/22 Ubidecarenone/Vit E Acet [Co Q-10 1 cap PO DAILY 07/19/22 07/19/22 100 mg Softgel] dilTIAZem HCL [Diltiazem 24Hr ER 360 mg PO DAILY 07/19/22 07/19/22 (Xr)] - Allergies Allergies/Adverse Reactions: Allergies Allergy/AdvReac Type Severity Reaction Status Date / Time rivaroxaban [From Xarelto] Allergy Unknown Verified 07/18/22 23:24 amlodipine AdvReac Edema Verified 07/18/22 23:24 losartan AdvReac Dizziness Verified 07/18/22 23:24 oxycodone AdvReac Nausea Verified 07/18/22 23:24 - Social History Does the pt smoke?: No Smoking Status: Never smoker Does the pt drink ETOH?: Yes Does the pt have substance abuse?: No - Immunizations Immunizations are current?: Yes - POLST Patient has POLST: No PD ED PE NORMAL - Vitals Vital signs reviewed: Yes - General General: Alert and oriented X 3, Well developed/nourished - HEENT HEENT: Pharynx benign - Neck Neck: Supple, no meningeal sign, No adenopathy - Cardiac Cardiac: No murmur. No: RRR - Respiratory Respiratory: Clear bilaterally - Abdomen Abdomen: Normal bowel sounds, Soft, Non tender, Non distended - Rectal Rectal: Deferred (she had small stool out in commode that was obvious melena. ) - Derm Derm: Warm and dry. No: Normal color (mild pallor) - Extremities Extremities: No edema, No calf tenderness / cord - Neuro Neuro: Alert and oriented X 3, No motor deficit, No sensory deficit, Normal speech Results - Vitals Vitals: Vital Signs - 24 hr 07/18/22 07/19/22 07/19/22 23:15 00:45 03:06 Temperature 36.2 C L 36.9 C Heart Rate 83 75 82 Heart Rate [ Monitoring electrodes] Respiratory 12 14 18 Rate Blood Pressure 123/86 H 158/71 H 182/88 H O2 Saturation 100 100 100 07/19/22 07/19/22 07/19/22 03:30 04:04 04:58 Temperature Heart Rate 80 90 87 Heart Rate [ Monitoring electrodes] Respiratory 14 13 14 Rate Blood Pressure 184/91 H 195/91 H 197/84 H O2 Saturation 100 100 100 07/19/22 07/19/22 07/19/22 05:04 05:34 06:14 Temperature Heart Rate 79 80 92 Heart Rate [ Monitoring electrodes] Respiratory 16 15 18 Rate Blood Pressure 196/89 H 207/82 H 222/92 H O2 Saturation 100 100 99 07/19/22 07/19/22 07/19/22 06:57 08:30 09:00 Temperature 36.8 C Heart Rate 97 85 83 Heart Rate [ Monitoring electrodes] Respiratory 15 17 15 Rate Blood Pressure 199/93 H 197/93 H 200/87 H O2 Saturation 100 100 100 07/19/22 07/19/22 07/19/22 09:30 10:00 10:30 Temperature 36.7 C Heart Rate 84 81 83 Heart Rate [ Monitoring electrodes] Respiratory 16 14 16 Rate Blood Pressure 192/66 H 197/82 H 198/79 H O2 Saturation 100 100 100 07/19/22 07/19/22 07/19/22 10:40 10:50 11:00 Temperature 36.7 C Heart Rate 84 86 Heart Rate [ 84 Monitoring electrodes] Respiratory 16 16 16 Rate Blood Pressure 198/79 H 172/82 H O2 Saturation 100 100 100 07/19/22 07/19/22 07/19/22 11:07 11:22 11:30 Temperature 36.6 C 36.8 C Heart Rate 86 Heart Rate [ 86 83 Monitoring electrodes] Respiratory 18 15 15 Rate Blood Pressure 190/75 H O2 Saturation 100 100 100 07/19/22 07/19/22 07/19/22 11:52 12:00 12:22 Temperature 36.6 C 36.8 C Heart Rate 88 Heart Rate [ 87 100 Monitoring electrodes] Respiratory 17 14 20 Rate Blood Pressure 215/75 H O2 Saturation 100 100 100 07/19/22 07/19/22 07/19/22 12:30 12:52 13:00 Temperature 36.8 C Heart Rate 96 90 Heart Rate [ 96 Monitoring electrodes] Respiratory 19 17 16 Rate Blood Pressure 190/100 H 200/100 H O2 Saturation 100 100 100 07/19/22 07/19/22 07/19/22 13:22 13:30 13:52 Temperature 36.5 C 36.5 C Heart Rate 98 Heart Rate [ 90 92 Monitoring electrodes] Respiratory 16 18 17 Rate Blood Pressure 220/100 H O2 Saturation 100 99 100 07/19/22 07/19/22 07/19/22 14:00 14:30 15:00 Temperature Heart Rate 90 90 99 Heart Rate [ Monitoring electrodes] Respiratory 20 15 17 Rate Blood Pressure 216/100 H 230/99 H 235/99 H O2 Saturation 100 99 100 07/19/22 07/19/22 07/19/22 15:30 16:00 16:30 Temperature Heart Rate 98 94 98 Heart Rate [ Monitoring electrodes] Respiratory 17 15 17 Rate Blood Pressure 220/100 H 219/95 H 191/88 H O2 Saturation 96 98 100 07/19/22 17:00 Temperature Heart Rate 98 Heart Rate [ Monitoring electrodes] Respiratory 17 Rate Blood Pressure 219/99 H O2 Saturation 100 Oxygen O2 Source Room air - Labs Labs: Laboratory Tests 07/18/22 07/18/22 07/18/22 22:36 22:36 22:36 WBC 9.5 RBC 2.55 L Hgb 8.7 L Hct 26.9 L MCV 105.5 H MCH 34.1 H MCHC 32.3 RDW 16.6 H Plt Count 313 MPV 9.7 Neut # (Auto) 6.8 H Lymph # (Auto) 1.5 [place] # (Auto) 0.7 Eos # (Auto) 0.3 Baso # (Auto) 0.1 Absolute Nucleated RBC 0.00 Nucleated RBC % 0.0 PT 12.5 INR 1.1 APTT 28.2 Sodium 135 Potassium 5.0 Chloride 96 L Carbon Dioxide 26 Anion Gap 13.0 BUN 74 H Creatinine 5.1 H Estimated GFR (MDRD) 8 L Glucose 129 H Calcium 8.7 Total Bilirubin 0.5 AST 17 ALT < 10 L Alkaline Phosphatase 90 Total Protein 6.8 Albumin 3.6 Globulin 3.2 Albumin/Globulin Ratio 1.1 Lipase 64 H Urine Color Urine Clarity Urine pH Ur Specific [place] Urine Protein Urine Glucose (UA) Urine Ketones Urine Occult Blood Urine Nitrite Urine Bilirubin Urine Urobilinogen Ur Leukocyte Esterase Urine RBC Urine WBC Ur Squamous Epith Cells Urine Bacteria Ur Microscopic Review Urine Culture Comments SARS-CoV-2 (PCR) Blood Type Antibody Screen Crossmatch IS Only 07/18/22 07/19/22 07/19/22 23:53 04:31 06:01 WBC RBC Hgb 7.2 L Hct 22.8 L MCV MCH MCHC RDW Plt Count MPV Neut # (Auto) Lymph # (Auto) [place] # (Auto) Eos # (Auto) Baso # (Auto) Absolute Nucleated RBC Nucleated RBC % PT INR APTT Sodium Potassium Chloride Carbon Dioxide Anion Gap BUN Creatinine Estimated GFR (MDRD) Glucose Calcium Total Bilirubin AST ALT Alkaline Phosphatase Total Protein Albumin Globulin Albumin/Globulin Ratio Lipase Urine Color YELLOW Urine Clarity CLEAR Urine pH 8.0 H Ur Specific [place] 1.020 Urine Protein 30 H Urine Glucose (UA) NEGATIVE Urine Ketones NEGATIVE Urine Occult Blood NEGATIVE Urine Nitrite NEGATIVE Urine Bilirubin NEGATIVE Urine Urobilinogen 0.2 (NORMAL) Ur Leukocyte Esterase NEGATIVE Urine RBC None Seen Urine WBC 0-3 Ur Squamous Epith Cells FEW Squamous Urine Bacteria Many H Ur Microscopic Review INDICATED Urine Culture Comments NOT INDICATED SARS-CoV-2 (PCR) Blood Type B POSITIVE Antibody Screen NEGATIVE Crossmatch IS Only See Detail 07/19/22 07/19/22 07/19/22 08:20 10:09 14:14 WBC RBC Hgb 6.2 L* 8.4 L Hct 19.2 L* 26.0 L MCV MCH MCHC RDW Plt Count MPV Neut # (Auto) Lymph # (Auto) [place] # (Auto) Eos # (Auto) Baso # (Auto) Absolute Nucleated RBC Nucleated RBC % PT INR APTT Sodium Potassium Chloride Carbon Dioxide Anion Gap BUN Creatinine Estimated GFR (MDRD) Glucose Calcium Total Bilirubin AST ALT Alkaline Phosphatase Total Protein Albumin Globulin Albumin/Globulin Ratio Lipase Urine Color Urine Clarity Urine pH Ur Specific [place] Urine Protein Urine Glucose (UA) Urine Ketones Urine Occult Blood Urine Nitrite Urine Bilirubin Urine Urobilinogen Ur Leukocyte Esterase Urine RBC Urine WBC Ur Squamous Epith Cells Urine Bacteria Ur Microscopic Review Urine Culture Comments SARS-CoV-2 (PCR) NOT DETECTED Blood Type Antibody Screen Crossmatch IS Only PD MEDICAL DECISION MAKING - ED course Complexity details: reviewed results (repeat H/H at few hours is the same. No further emesis. Will check H/H in 4 more hours or so. ), re-evaluated patient, considered differential (vomting, then hematemesis of bright red. Consider ulcer or gastritis, vs M-W tear with emesis. Will check serial H/H and watch vitals. Due to dialysis patient, would need to have her in other facility for OBS or EGD. ), d/w patient ED course: Care over to Dr. Guaman, oncoming ED physician, awaiting other facility having bed capability for transfer. To get repeat H/H in few hours. Transfuse if needed. - Critical Care Time(min): 50 Time Includes: Direct patient care, Reassess patient, Coordinate care Data interpretation: Labs, See progress note (serial blood counts. transfusion need. [facility] vitals monitoring and trend. ) Departure - Departure Disposition: 02 Transfer Acute Care Hosp Clinical Impression: Acute upper GI bleeding, Chronic renal failure, Anticoagulant long-term use, Atrial fibrillation Condition: Stable
[2022-07-19] MEDS ORDERED: FAMOTIDINE 20 MG/2 ML VIAL IVP STA (00:17)
[2022-07-19] MEDS ORDERED: SODIUM CHLORIDE 0.9% 1,000 ML IV STA (00:17)
[2022-07-19] MEDS ORDERED: PANTOPRAZOLE 40 MG VIAL IVP STA (00:17)
[2022-07-19 04:48] LABS: BILIRUBIN,URINE NEGATIVE (NEGATIVE); GLUCOSE, URINE (UA) NEGATIVE (NEGATIVE); KETONES,URINE (UA) NEGATIVE (NEGATIVE); LEUKOCYTE ESTERASE, URINE NEGATIVE (NEGATIVE); NITRITE,URINE NEGATIVE (NEGATIVE); OCCULT BLOOD,URINE NEGATIVE (NEGATIVE); PROTEIN,URINE 30 mg/dL (NEGATIVE); UROBILINOGEN,URINE 0.2 (NORMAL) E.U./dL (NORMAL)
[2022-07-19 04:50] LABS: CLARITY,URINE CLEAR (CLEAR)
[2022-07-19 04:56] LABS: BACTERIA,URINE Many /HPF (None Seen); RBC,URINE None Seen /HPF (0-5); SQUAMOUS EPITHELIAL CELL,UR FEW Squamous (<= Few); WBC,URINE 0-3 /HPF (0-5)
[2022-07-19 06:12] LABS: HCT - HEMATOCRIT 22.8 % (37.0-47.0); HGB - HEMOGLOBIN 7.2 g/dL (12.0-16.0)
[2022-07-19] MEDS ORDERED: METOPROLOL TARTRATE 50 MG TABLET PO STA (07:04)
[2022-07-19] MEDS ORDERED: lisinopriL 5 MG TABLET PO STA (07:04)
[2022-07-19] MEDS ORDERED: PANTOPRAZOLE 80 MG in SODIUM CHLORIDE 0.9% 100ML 100 ML IV STA ×2 (07:11→20:27)
[2022-07-19] MEDS ORDERED: PANTOPRAZOLE 40 MG VIAL ONE ×2 (07:41→20:46)
[2022-07-19 10:30] LABS: HGB - HEMOGLOBIN 6.2 g/dL (12.0-16.0)
[2022-07-19 10:31] LABS: HCT - HEMATOCRIT 19.2 % (37.0-47.0)
--- NOTE | 2022-07-19 10:31 | ED Physician Documentation ---
ED Addendum - Addendum Addendum: 07/19/22 17:35 Patient received a signout from off going physician, please see their d ocumentation for further detail. Patient evaluated independently at bedside, found to be resting comfortably and in no acute distress. Noted to have downtrending hemoglobin with low of hemoglobin 6.2. 1 unit PRBCs was ordered. Recheck hemoglobin improved at 8.4. At this time still awaiting placement in a facility with both nephrology to assist with patient's chronic renal insufficiency as well as gastroenterology for upper GI bleed. Protonix drip continued throughout the entirety of my shift. Will be signing out to the oncoming physician, please see their documentation for further detail.
[2022-07-19 14:25] LABS: HGB - HEMOGLOBIN 8.4 g/dL (12.0-16.0)
[2022-07-19] MEDS ORDERED: ACETAMINOPHEN 325 MG TABLET PO STA (18:29)
[2022-07-19] MEDS ORDERED: ONDANSETRON 4 MG/2 ML VIAL IVP STA (18:40)
[2022-07-19] MEDS ORDERED: diltiaZEM INJ 5 MG/ML VIAL IVP STA ×3 (19:22→22:42)
--- NOTE | 2022-07-19 19:22 | ED Physician Documentation ---
ED Addendum - Addendum Addendum: 07/19/22 19:21 Patient noted to go into A. fib with RVR on the monitor. Has a history of the same. Denies any chest pain or difficulty breathing. Does continue to report having nausea. Patient is awaiting transfer for a GI bleed. She is a dialysis patient. She is supposed to be on Cardizem. EKG with heart rate of 135. Will administer dose of Cardizem and continue to monitor. EKG: Time 1911; Rate 135, atrial fibrillation, ST depression lateral leads 07/19/22 21:29 D/W Dr Gordon (sp?) (Nephrology at [facility]) - He will consult on the patient. Pt's R arm fistula with bruit and thrill. Patient's last dialysis was Tuesday. Care turned over to overnight physician, Dr. Lopez.
[2022-07-19] MEDS ORDERED: diltiaZEM CD 120 MG CAPSULE PO STA (20:21)
[2022-07-19 23:18] VITALS: BP 139/70
--- NOTE | 2022-07-20 10:13 | ED Physician Documentation ---
ED Addendum - Addendum Addendum: 07/20/22 10:12 Received sign out from Dr. Antonio at end of her shift, pending disposition to appropriate facility. I discussed the case with Dr. Mckee (hospitalist at [facility]), accepts transfer. Patient is resting comfortably when I check in on her prior to transfer. She says she only is feeling tired at this time but no other c/o.
== END 2022-07-19 23:41 | disposition short-term general hospital (02) ==
LOC: ED 23:13
DX: I48.91 Unspecified atrial fibrillation (principal); K92.2 Gastrointestinal hemorrhage, unspecified; I12.9 Hypertensive chronic kidney disease with stage 1 through stage 4 chronic kidney disease, or unspecified chronic kidney disease; N18.9 Chronic kidney disease, unspecified; Z79.01 Long term (current) use of anticoagulants
CPT/HCPCS: 36415; 80053; 81001; 83690; 85014; 85018; 85025; 85610; 85730; 86850; 86900; 86901; 86920; 87635; 93005; 96365; 96366; 96375; 96376; 99291; A9270; P9016; 81003; 87086

== ENCOUNTER 2022-07-19 23:36 | Outpatient (CLI) | payer MEDICARE, OTHER | END 2022-07-19 23:37 | disposition short-term general hospital (02) | LOC: EMS 23:36 | PROVIDERS: ATTEND Emergency Medicine | DX: K92.2 Gastrointestinal hemorrhage, unspecified (principal); I48.91 Unspecified atrial fibrillation; Z79.01 Long term (current) use of anticoagulants; N18.6 End stage renal disease; Z99.2 Dependence on renal dialysis | CPT/HCPCS: A0425; A0426 ==

== ENCOUNTER 2022-11-03 17:21 | Outpatient (CLI) | payer MEDICARE, OTHER ==
[2022-11-03 21:26] LABS: BASOPHILS # (AUTO) 0.1 10^3/uL (0.0-0.1); BASOPHILS % (AUTO) 0.9 %; EOSINOPHILS # (AUTO) 0.1 10^3/uL (0.0-0.7); EOSINOPHILS % (AUTO) 2.2 %; HCT - HEMATOCRIT 25.6 % (37.0-47.0); HGB - HEMOGLOBIN 8.2 g/dL (12.0-16.0); LYMPHOCYTES # (AUTO) 0.5 10^3/uL (1.5-3.5); MEAN CORPUSCULAR HEMOGLOBIN 32.7 pg (27.0-31.0); MEAN PLATELET VOLUME 10.2 fL (7.9-10.8); MONOCYTES # (AUTO) 0.5 10^3/uL (0.0-1.0); NEUTROPHILS # (AUTO) 4.4 10^3/uL (1.5-6.6); NEUTROPHILS % (AUTO) 78.5 %; PLT - PLATELET COUNT 266 10^3/uL (130-450); RED BLOOD COUNT 2.51 10^6/uL (4.20-5.40); RED CELL DISTRIBUTION WIDTH 15.8 % (12.0-15.0); WHITE BLOOD COUNT 5.6 x10^3/uL (4.8-10.8)
[2022-11-03 22:20] LABS: CALCIUM 8.6 mg/dL (8.5-10.3); POTASSIUM 3.9 mmol/L (3.5-5.0)
[2022-11-03 22:38] LABS: CREATININE 3.2 mg/dL (0.4-1.0)
== END 2022-11-03 17:22 | disposition home or self-care (01) ==
LOC: LAB.N 17:21
PROVIDERS: ATTEND Internal Medicine Cardiovascular Disease
DX: I48.0 Paroxysmal atrial fibrillation (principal); Z95.818 Presence of other cardiac implants and grafts
CPT/HCPCS: 36415; 80048; 85025

== ENCOUNTER 2023-01-02 20:19 | Emergency (ER) | payer MEDICARE, OTHER ==
--- NOTE | 2023-01-02 20:49 | ED Physician Documentation ---
PD HPI ABD PAIN - Stated complaint Stated Complaint: ABD PX/NAUSEA - Chief complaint Chief Complaint: Abd Pain - History obtained from History obtained from: Patient - History of Present Illness Timing - onset: How many days ago (33) Timing - duration: Days Timing - details: Still present (has had RUQ abd pain for 3 days, undulating severity. Severely worse this evening the past 1-2 hours despite oral pain meds at home. Also nausea with vomiting this evening.), Intermittant, Waxing and waning Pain level max: 10 Pain level now: 10 Quality: Cramping, Aching, Pain Location: RUQ Radiation: Lower back, Right flank Associated symptoms: Nausea, Vomiting. No: Fever, Diarrhea, Dysuria Similar symptoms before: Has not had sx before (history of low back pain but not to this degree. no prior abd pain similar.) Review of Systems Constitutional: denies: Fever Nose: denies: Rhinorrhea / runny nose, Congestion Throat: denies: Sore throat Respiratory: denies: Cough GI: reports: Abdominal Pain, Nausea, Vomiting. denies: Constipation, Diarrhea, Hematemesis : denies: Dysuria, Frequency Neurologic: denies: Focal weakness, Numbness, Near syncope PD PAST MEDICAL HISTORY - Past Medical History Cardiovascular: Hypertension, High cholesterol, Coronary artery disease, Atrial fibrillation (is getting Watchman procedure at [facility] next week. ), Other (known aortic aneurysm, being watched but has been told she is not surgical candidate and she does not want surgical/vascular intervention. ) Respiratory: Sleep apnea Neuro: None Endocrine/Autoimmune: None GI: GI bleed BRIDGE WORKER: Uterine cancer (has uterine mass presumed cancer, not being pursued by patient. ) : Dialysis (with normal dialysis sessions, last one yesterday (,,). ), Renal insuffiency, Other HEENT: None Psych: None Musculoskeletal: None Derm: None - Past Surgical History Past Surgical History: Yes General: Colonoscopy Ortho: Rotator cuff repair Cardiovascular: Coronary stent HEENT: Cataracts - Present Medications Home Medications: Ambulatory Orders Medication Instructions Recorded Confirmed Fluticasone Propionate [Flonase 1 spray NS BID PRN 06/04/15 01/10/22 Allergy Relief] Nitroglycerin [Nitrostat] 0.4 mg SL Q5MIN PRN 06/04/15 01/10/22 Cholecalciferol (Vitamin D3) 1,000 unit PO DAILY 04/06/16 01/10/22 [Vitamin D3] Aspirin [Aspirin EC] 81 mg PO QPM 08/06/16 07/19/22 Acetaminophen [Tylenol] 650 mg PO Q4HR PRN #0 tablet 08/07/16 03/21/20 Atorvastatin [Lipitor] 20 mg PO 09/16/16 01/10/22 Cetirizine [ZyrTEC] 10 mg PO DAILY 09/25/18 01/10/22 Torsemide 40 mg PO DAILY 01/10/22 07/19/22 cloNIDine 0.1 MG PATCH 0.2 mg TOP Q7D 01/10/22 07/19/22 [[id number]-1] Pantoprazole [Protonix] 40 mg PO BID #60 tablet 01/11/22 07/19/22 Calcium Carbonate [Tums (Calcium 500 mg PO DAILY 07/19/22 07/19/22 Carbonate 500mg)] Cetirizine [ZyrTEC] 10 mg PO DAILY 07/19/22 07/19/22 Ergocalciferol (Vitamin D2) 1 cap PO DAILY 07/19/22 07/19/22 [Vitamin D2] Lisinopril [Zestril] 20 mg PO DAILY 07/19/22 07/19/22 Metoprolol Succinate [Toprol Xl] 50 mg PO DAILY 07/19/22 07/19/22 Ticagrelor [Brilinta] 90 mg PO DAILY 07/19/22 07/19/22 Ubidecarenone/Vit E Acet [Co Q-10 1 cap PO DAILY 07/19/22 07/19/22 100 mg Softgel] dilTIAZem HCL [Diltiazem 24Hr ER 360 mg PO DAILY 07/19/22 07/19/22 (Xr)] Dicyclomine [Bentyl] 10 mg PO TID PRN #20 cap 01/02/23 - Allergies Allergies/Adverse Reactions: Allergies Allergy/AdvReac Type Severity Reaction Status Date / Time rivaroxaban [From Xarelto] Allergy Unknown Verified 01/02/23 20:51 amlodipine AdvReac Edema Verified 01/02/23 20:51 losartan AdvReac Dizziness Verified 01/02/23 20:51 oxycodone AdvReac Nausea Verified 01/02/23 20:51 - Social History Does the pt smoke?: No Smoking Status: Never smoker Does the pt drink ETOH?: Yes Does the pt have substance abuse?: No - Immunizations Immunizations are current?: Yes - POLST Patient has POLST: No PD ED PE NORMAL - Vitals Vital signs reviewed: Yes (hypertensive on presentation) - General General: Other (appears in severe pain of abd right upper to right flank. ) - Neck Neck: Supple, no meningeal sign, No adenopathy - Cardiac Cardiac: No: RRR (tachycardic and irregular. ) - Respiratory Respiratory: No respiratory distress, Clear bilaterally - Abdomen Abdomen: Soft, Other (thin with low bmi. easily palpable mass upper abd with pulsations c/w aneurysm. patient states she knows she has one when I point it out. It is not particularly tender in that area. RUQ very tender with guarding. ) - Back Back: No CVA TTP, No spinal TTP - Derm Derm: Normal color, Warm and dry - Extremities Extremities: Other (dialysis shunt noted right upper arm. pacer left chestwall. ) - Neuro Neuro: Alert and oriented X 3, No motor deficit, Normal speech Eye Opening: Spontaneous Motor: Obeys Commands Verbal: Oriented GCS Score: 15 Results - Vitals Vitals: Vital Signs - 24 hr 01/02/23 01/02/23 01/02/23 20:40 21:53 22:49 Temperature 36.4 C L 36.5 C Heart Rate 109 H 89 84 Respiratory 24 14 Rate Blood Pressure 230/117 H 204/98 H 189/83 H O2 Saturation 100 98 98 01/02/23 23:36 Temperature Heart Rate 84 Respiratory 11 L Rate Blood Pressure 161/76 H O2 Saturation 99 Oxygen O2 Source Room air - Labs Labs: Laboratory Tests 01/02/23 01/02/23 01/02/23 20:59 20:59 20:59 WBC 18.1 H RBC 4.05 L Hgb 13.0 Hct 39.5 MCV 97.5 MCH 32.1 H MCHC 32.9 RDW 13.2 Plt Count 502 H MPV 9.0 Neut # (Auto) 15.6 H Lymph # (Auto) 0.9 L Gem # (Auto) 1.3 H Eos # (Auto) 0.1 Baso # (Auto) 0.1 Absolute Nucleated RBC 0.00 Nucleated RBC % 0.0 Sodium 131 L Potassium 3.2 L Chloride 90 L Carbon Dioxide 24 Anion Gap 17.0 H BUN 33 H Creatinine 4.0 H Estimated GFR (MDRD) 11 L Glucose 179 H Calcium 9.3 Phosphorus 3.2 Magnesium 1.9 Total Bilirubin 0.9 AST 19 ALT < 10 L Alkaline Phosphatase 105 Total Protein 7.9 Albumin 3.9 Globulin 4.0 Albumin/Globulin Ratio 1.0 Lipase 41 - Rads (name of study) abd/pelvic CT-A Radiology: Prelim report reviewed (gallstone in gallbladder neck. GB distended but no wall thickening. No kidney stones. The aortic aneurysm is larger than prior study and is 7 cm now. there is irregularity of the lumen flow. there is side hematoma of contrast within the aorta but in old clot area. rad notes retroperitoneal hematoma.), See rad report PD Medical Decision Making - ED course Complexity details: reviewed results, considered differential (consider gallbladder colic, kidney stone, intestinal blockage, but certain high concern for aortic aneurysm leaking. bp elevated but came down with treatment of the pain and vomiting. i was wary of dropping pressure too much if leaking vascular.), d/w patient, d/w [facility] consultant (Radiologist) Procedural Risk Factors Specific to Patient: The patient is on dialysis, with known vascular disease and heart disease, prior stents of heart and peripheral. 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 has rUQ/abd pain concerning for potential gallbadder versus intestinal but certain need to consider aortic related to the aneurysm. She is on dialysis so no issue with giving iv contrast and next session is in 2 days. She is regular with them. So CT-A of the abdomen was obtained. this showed an increased size of the aneurysm with irregular edges of the intraluminal flow and some contrast extravasation into a hematoma/pocket in the periaortic and intraluminal clot area. Radiologist also says a retroperitoneal hematoma. find ings are c/w partial rupturing of the aneurysm. the patient was given iv dilaudid and Zofran for the pain and nausea. This led to moderate improvement of the pain and nausea. repeat meds with IV dilaudid 1 mg and also inapsine 1.25 mg iv led to resolution of the pain and nausea. She went to ct and returned feeling much better. Pain and nausea are resolved. She is wanting to go home. Interesting situation in that the patient is having a serious condition and life-threatening cause of the pain, which is now pain-free and she is feeling good. She is aware of the gravity of the condition. Alternatives considered were biliary colic with stone seem in the gB and the location of the pain, with now such prompt complete resolution of the pain. However, cannot ignore the ct findings of acute abnormality of the aorta. The patient restates that she is not a candidate for surgery and does not want interventions. She is also aware of uterine mass previously. 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 given that her pain is resolved and she wants to just go home, i don't quite see a goal or objective of admitting the patient/transferring/etc. WIth the CT findings of presume partial rupture of the aorta, she has a very high probability of this further rupturing, which would be a lethal condition. She is understanding of this. her is with her and seems to understand this as well, though not sure if he fully comprehends it as seems nonplussed. The patient herself also seems to be unperturbed with the idea of this being likely fatal. there certainly is apotentil of it ceasing leaking and form hematoma and remain temporarily viable. It feels strange to discharge her but i don't see other rationale to keep her. discharged painfree and without nausea with normal vitals. BP is improved. - Critical Care Time(min): 45 Time Includes: Direct patient care, Review records, Reassess patient, Document care Data interpretation: Labs, See progress note (abd CT angio) Departure - Departure Disposition: 01 Home, Self Care Clinical Impression: Abdominal pain, Nausea and vomiting, Aortic aneurysm, Intramural hematoma of abdominal aorta Condition: Stable Record reviewed to determine appropriate education?: Yes Follow-Up: Terri Mcintyre MD [Provider Admit Priv/Credential] - Prescriptions: Dicyclomine [Bentyl] 10 mg PO TID PRN #20 cap PRN Reason: Abdominal Pain Comments: Your CT scan shows some increased size of your abdominal aneurysm and some irregularity of the flow through the center and a small hematoma of it within the wall of the aorta suggesting it may be threatening rupture. The pain you had was in that area although your pain was also in the area of the gallbladder. You do have a gallstone with some distention of the gallbladder. Consideration can could be for gallbladder/colic/spasm and subsequently the forcefulness of vomiting led to some disruption of the fluid flow within the aortic aneurysm. The aortic aneurysm is at risk for rupture. I understand you have decided that you do not want any surgical intervention for this and truly your survival from that, given your other medical problems, would be fairly risky/questionable. But you do need to be aware that there is this hematoma or small blood leakage from the main flow through the aneurysm into the wall of it. Use your usual current medications. Add Tylenol if needed for pains. Add dicyclomine every 6-8 hours if needed for right upper abdominal spasms that cou ld be gallbladder spasms. Follow-up with Dr. Mcintyre and your dialysis on Tuesday as planned. Return if needed. Discharge Date/Time: 01/02/23 23:50
[2023-01-02 21:05] LABS: BASOPHILS # (AUTO) 0.1 10^3/uL (0.0-0.1); BASOPHILS % (AUTO) 0.4 %; EOSINOPHILS # (AUTO) 0.1 10^3/uL (0.0-0.7); EOSINOPHILS % (AUTO) 0.4 %; HCT - HEMATOCRIT 39.5 % (37.0-47.0); LYMPHOCYTES # (AUTO) 0.9 10^3/uL (1.5-3.5); LYMPHOCYTES % (AUTO) 5.1 %; MEAN CORPUSCULAR HEMOGLOBIN 32.1 pg (27.0-31.0); MEAN CORPUSCULAR HGB CONC 32.9 g/dL (32.0-36.0); MEAN CORPUSCULAR VOLUME 97.5 fL (81.0-99.0); MONOCYTES # (AUTO) 1.3 10^3/uL (0.0-1.0); NEUTROPHILS # (AUTO) 15.6 10^3/uL (1.5-6.6); NEUTROPHILS % (AUTO) 85.9 %; PLT - PLATELET COUNT 502 10^3/uL (130-450); RED BLOOD COUNT 4.05 10^6/uL (4.20-5.40); RED CELL DISTRIBUTION WIDTH 13.2 % (12.0-15.0); WHITE BLOOD COUNT 18.1 x10^3/uL (4.8-10.8)
[2023-01-02] MEDS ORDERED: ONDANSETRON 4 MG/2 ML VIAL IVP STA (21:05)
[2023-01-02] MEDS ORDERED: HYDROmorphone 1 MG/ML CARPUJECT IVP STA ×2 (21:05→21:37)
[2023-01-02] MEDS ORDERED: SODIUM CHLORIDE 0.9% 1,000 ML IV STA (21:15)
[2023-01-02 21:19] LABS: ALBUMIN 3.9 g/dL (3.2-5.5); ALKALINE PHOSPHATASE 105 IU/L (42-121); ALT ALANINE AMINOTRANSFERASE < 10 IU/L (10-60); AST ASPARTATE AMINOTRANSFERASE 19 IU/L (10-42); BILIRUBIN,TOTAL 0.9 mg/dL (0.2-1.0); BUN - BLOOD UREA NITROGEN 33 mg/dL (6-20); CALCIUM 9.3 mg/dL (8.5-10.3); CARBON DIOXIDE - CO2 24 mmol/L (21-32); CHLORIDE 90 mmol/L (101-111); GFR - MDRD 11 (>89); GLUCOSE 179 mg/dL (70-100); LIPASE 41 U/L (22-51); POTASSIUM 3.2 mmol/L (3.5-5.0); SODIUM 131 mmol/L (135-145); TOTAL PROTEIN 7.9 g/dL (6.7-8.2)
[2023-01-02] MEDS ORDERED: iohexoL-300 100 ML VIAL ONE (21:20)
[2023-01-02 21:25] LABS: MAGNESIUM 1.9 mg/dL (1.7-2.8); PHOSPHORUS 3.2 mg/dL (2.5-4.6)
[2023-01-02] MEDS ORDERED: DROPERIDOL 5 MG/2 ML VIAL IVP STA (21:36)
--- NOTE | 2023-01-02 23:19 | CT Report ---
PROCEDURE: ANGIO ABDOMEN/PELVIS W INDICATIONS: upper/right abd pain with vomiting today CONTRAST: 100 ML OMNI 300 TECHNIQUE: After the administration of intravenous contrast, 2.5 mm thick sections acquired from the diaphragm t o the symphysis. 10 mm maximum-intensity projection (MIP) reformats were then acquired. For radiati on dose reduction, the following was used: automated exposure control, adjustment of mA and/or kV ac cording to patient size. COMPARISON: CT abdomen pelvis 01/10/2022 FINDINGS: Image quality: Diagnostic. 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 This appears increased in size from 5.2 cm on the prior study. There is eccentric intraluminal thrombus within the aneurysm. The aortic contours are indistinct with mild adjacent fat stranding. There is a new small to moderate right retroperiton eal hematoma contiguous with the right aspect of the aorta. No definite intraluminal contrast extrava sation identified. The findings are compatible with aortic perforation or partial rupture with an ass ociated periaortic hematoma extending to the right retroperitoneum. Mesenteric arteries: Celiac trunk, superior and inferior mesenteric arteries appear patent. Renal arteries: The origins of the renal arteries are not well opacified compatible with high-grade p roximal renal artery stenoses. Right pelvic arteries: The common iliac artery demonstrates calcified plaque but appears normal in c aliber and patent. The external and internal iliac arteries also appear patent. The common femoral as well as the visualized superficial femoral and deep femoral arteries appear patent. Left pelvic arteries: The common iliac artery demonstrates calcified plaque but appears normal in ca liber and patent. The external and internal iliac arteries also appear patent. The common femoral as well as the visualized superficial femoral and deep femoral arteries appear patent. Extravascular soft tissues: Lung bases:There is a small left pleural effusion with associated mild compressive atelectasis. Heart:Heart size is enlarged. ABDOMEN: Liver: No mass lesion. Gallbladder:There is a calcified gallstone in the gallbladder without wall thickening or pericholecy stic fluid. Biliary ducts: No biliary ductal dilatation. Pancreas: Unremarkable. Spleen: Normal in size. Adrenal Glands:The right adrenal is obscured by the right retroperitoneal hematoma. No left adrenal nodule. Kidneys and Ureters:The kidneys are atrophic in size, right smaller than left. No hydronephrosis. Stomach and Bowel: Stomach, small bowel loops, and colon are normal in caliber and wall thickness. T here is colonic diverticulosis without acute diverticulitis. Peritoneum:There is a small amount of intraperineal free fluid. No free air. Ventral Wall: No hernia. Abdominal Nodes: No retroperitoneal or mesenteric adenopathy by size criteria. PELVIS: Pelvic Organs: There is masslike enlargement of the endometrium which appears increased in size comp ared to the prior study. Bladder: Unremarkable. Pelvic Nodes: No enlarged lymph nodes. Miscellaneous: No inguinal hernias. Bones: Visualized osseous structures demonstrate no suspicious lesions. IMPRESSION: 1. Increase in size of an abdominal aortic aneurysm with indistinct margins, a right periaortic hemat lacey, and a right retroperitoneal hematoma. The findings are compatible with a perforation or partial rupture of the aneurysm extending into the right retroperitoneal space. No definite intraluminal cont rast extravasation identified at this time. Findings discussed with Dr. Mtz on 01/02/2023 at 11:04 PM. 2. Masslike enlargement of the endometrium appears increased from the prior study. The findings are s uspicious for an endometrial neoplasm. 3. Small amount of intraperitoneal free fluid is nonspecific. 4. Small left pleural effusion. Reviewed by: Herminio Sabillon MD on 01/02/2023 11:18 PM PST Approved by: Herminio Sabillon MD on 01/02/2023 11:18 PM PST Station ID: [id number]
[2023-01-02 23:37] VITALS: BP 161/76
== END 2023-01-02 23:50 | disposition home or self-care (01) ==
LOC: ED 20:19
DX: I71.40 Abdominal aortic aneurysm, without rupture, unspecified (principal); I71.02 Dissection of abdominal aorta; N18.9 Chronic kidney disease, unspecified; Z99.2 Dependence on renal dialysis
CPT/HCPCS: 36415; 74174; 80053; 83690; 83735; 84100; 85025; 96361; 96374; 96375; 99284; 99291; J1170; Q9967

== ENCOUNTER 2023-01-08 21:37 | Outpatient (CLI) | payer MEDICARE, OTHER | END 2023-01-08 21:38 | disposition E | LOC: EMS 21:37 ==